=== PATIENT | male | born 1960 | race African-American/Black ===

== ENCOUNTER 2020-04-27 07:58 | Outpatient (CLI) | payer OTHER, SELFPAY ==
--- NOTE | 2020-05-02 13:16 | WPDPFTINT ---
PFT Interpretation PFT Interpretation: DOS: 04/27/2020 REQUESTING: Arslan Joshi NP REASON FOR TESTING: COPD PULMONARY FUNCTION TESTS Results are reliable and reproducible. Spirometry: FEV1 106%, 2.88 L. FVC 117%. FEV1/ FVC decreased 67%. FEF 25-75% is decreased at 59%. No change after bronchodilator. Lung volumes: TLC 141% moderately increased consistent with hyperinflation. slow vital capacity is 125% compared to forced vital capacity 117% consistent with dynamic airway obstruction. residual volume 136% consistent with air trapping. airway resistance mildly increased 133%. Diffusion: DLCO 83%, normal. Flow volume loop: Normal. IMPRESSION: Small airways pattern with moderate hyperinflation, mild air trapping, and increased airway resistance. Lack of response to bronchodilators should not preclude use if clinically indicated. Heena Barnhart MD
--- NOTE | 2020-05-02 13:23 | WPDPFTINT ---
PFT Interpretation PFT Interpretation: DOS: 04/27/2020 REQUESTING: Dr. Reji Abdul REASON FOR TESTING: Enlarged lymph node PULMONARY FUNCTION TESTS Results are reliable and reproducible. Patient meds include ProAir Spiriva Symbicort. Spirometry: FEV1 70%, mildly decreased, 2.58 L. FVC 96% normal. FEV1/ FVC % decreased 53% consistent with airflow obstruction. FEF 25-75% extremely low 29%. No significant change with bronchodilator administration. Lung volumes: TLC 110% normal. RV 123% mild air trapping. airway resistance increased to 219%. Diffusion: DLCO is 74%, mildly decreased. Flow volume loop: Mild coving of the expiratory limb. IMPRESSION: Mild obstructive ventilatory defect severe in the small airways with mild air trapping and mild diffusion impairment. Lack of response to bronchodilators should not preclude use if clinically indicated. Heena Barnhart MD
== END 2020-04-27 07:59 | disposition home or self-care (01) ==
LOC: ANHPFT 08:00
PROVIDERS: PCP Emergency Medicine; Visit Provider Nurse Practitioner Family
DX: J44.9 Chronic obstructive pulmonary disease, unspecified (principal); R94.2 Abnormal results of pulmonary function studies
CPT/HCPCS: 94060; 94726; 94729

== ENCOUNTER 2020-06-19 02:43 | Observation (INO) | payer OTHER, SELFPAY ==
[2020-06-19] VITALS (15 sets, daily range): BP systolic 111–182; BP diastolic 76–123; PULSE 88–114; RESP 16–28; TEMP 36.1–36.7; O2SAT 90–98; BMI 26.3
--- NOTE | ~2020-06-19 | XR_ITS ---
EXAMINATION: XR chest 2V DATE: 06/19/2020 03:39 INDICATION: Shortness of breath TECHNIQUE: PA and lateral views of the chest are obtained. COMPARISON: 11/03/2019, 04/17/2019 FINDINGS: The lungs are hyperinflated but free of acute opacities. There is no pleural effusion or pn eumothorax. The cardiomediastinal silhouette is normal. The visualized bones and soft tissues are unr emarkable. IMPRESSION: 1. Hyperinflation without acute cardiopulmonary abnormality. Reviewed, dictated and finalized at location A.
--- NOTE | ~2020-06-19 | CT_ITS ---
EXAMINATION: CTA chest PE protocol DATE: 06/20/2020 14:38 INDICATION: Hemoptysis. Shortness of breath. TECHNIQUE: Computed tomography angiography (CTA) of the chest was performed with 100 mL Omnipaque-350 intravenous contrast timed to evaluate the pulmonary arteries. Coronal maximum intensity projection 3D-reconstructions were created by the technologist. Automated exposure control and iterative reconst ruction technique were employed. The dose-length product was 319.59 mGy-cm. COMPARISON: Chest CT 11/03/2019 FINDINGS: There is mucosal plugging in the lower lobes. There is minimal atelectasis bilaterally. The re is mild emphysema. No pleural effusion. The heart size is normal. There are coronary artery calcif ications. No pericardial effusion. There is no pulmonary embolus. There is an old healed fracture of left clavicle. IMPRESSION: 1. No pulmonary embolus. Sensitivity is mildly decreased by motion artifact. 2. Mild emphysema. Reviewed, dictated and finalized at location A.
--- NOTE | 2020-06-19 02:51 | ECG_ITS ---
Measurements Intervals [place] Rate: 101 P: 78 LA: 168 QRS: 44 QRSD: 94 T: 49 QT: 330 QTc: 428 Interpretive Statements SINUS TACHYCARDIA POSSIBLE LEFT ATRIAL ENLARGEMENT CANNOT RULE OUT SEPTAL INFARCT, AGE INDETERMINATE BASELINE ARTIFACT- I, II, III, AVL, AVF ABNORMAL ECG Electronically Signed On 06-19-2020 7:17:43 CDT by Michael Fontaine D.O.
[2020-06-19] MEDS: IPRATROPIUM BR 0.02% INH SOLN 0.5 MG/2.5 ML VIAL 1 MG INHALATION (03:02)
[2020-06-19] MEDS: ALBUTEROL SULFATE NEB 2.5 MG/0.5 ML INH 10 MG INHALATION (03:03)
[2020-06-19 03:04] LABS: Basophils Absolute Auto 0.1 K/mm3 (0.0-0.1); Basophils Percent Auto 0.7 % (0.2-1.2); Eosinophils Absolute Auto 1.8 K/mm3 (0-0.3); Eosinophils Percent Auto 24.7 % (0-4.4); Hematocrit 39.7 % (42.0-52.0); Hemoglobin 13.6 g/dL (14.0-18.0); Immature Granulocyte Absolute 0.01 K/mm3 (0.00-0.031); Immature Granulocyte Percent A 0.1 % (0-0.5); Lymphocytes Absolute Auto 2.22 K/mm3 (0.9-3.2); Lymphocytes Percent Auto 30.6 % (18.3-44.2); Mean Corpuscular HGB Conc 34.3 g/dl (32-36); Mean Corpuscular Hemoglobin 31.3 pg (26-34); Mean Corpuscular Volume 91.5 fl (80-100); Mean Platelet Volume 9.1 fl (7.4-10.4); Monocytes Absolute Auto 0.5 K/mm3 (0.1-0.6); Monocytes Percent Auto 6.3 % (2.6-8.5); Neutrophils Absolute Auto 2.7 K/mm3 (1.3-6.7); Neutrophils Percent Auto 37.6 % (45.5-73.1); Platelet Count Result 237 k/mm3 (150-375); Red Blood Count 4.34 M/mm3 (4.6-6.20); Red Cell Distribution Width 12.3 % (11.5-14.5); White Blood Count 7.3 K/mm3 (4.5-10.0)
[2020-06-19 03:16] LABS: Anion Gap 8 mmol/L (8-16); Blood Urea Nitrogen 12 mg/dL (9-20); Calcium 9.1 mg/dL (8.4-10.2); Carbon Dioxide 24 mmol/L (22-30); Chloride 105 mmol/L (98-107); Estimated CRCL calculation 52 ml/min; Estimated Glomerular Filt Rate > 60; Glucose 115 mg/dL (75-110); Potassium 3.6 mmol/L (3.4-5.0); Sodium 137 mmol/L (137-145)
--- NOTE | 2020-06-19 04:05 | ED.SOB ---
HPI - SOB/Dyspnea General Chief Complaint: Shortness of Breath/Dyspnea Stated Complaint: SOB Time Seen by Provider: 06/19/20 02:58 Source: patient Mode of arrival: ambulatory Limitations: no limitations History of Present Illness HPI Narrative: This patient is a 60 year old male who presents for evaluation of shortness of breath. He states he has chronic bronchitis but his symptoms have gotten worsen over the past couple of days. He reports worsening dry cough and wheezing. He is using his albuterol inhaler and maintenance inhaler without relief. He called 911 and he was found to have diffuse wheezing so he was treated with albuterol nebulizer and decadron in route. He states his shortness of breath has not improved. He reports chronic constant chest tightness for a long time. He denies fever, chills, nausea, vomiting. Related Data Home Medications Medication Instructions Recorded Confirmed pravastatin 20 mg tablet 20 mg PO DAILY 10/18/19 06/19/20 hydrochlorothiazide 12.5 mg PO DAILY 06/19/20 06/19/20 losartan 50 mg PO DAILY 06/19/20 06/19/20 Allergies Allergy/AdvReac Type Severity Reaction Status Date / Time No Known Allergies Allergy Verified 04/19/20 09:08 Review of Systems Review of Systems: All systems reviewed & are unremarkable except as noted in HPI and below Constitutional: Constitutional: Denies chills and Denies fever(s) Cardiovascular: Cardiovascular: Denies chest pain and Denies radiating jaw, neck or arm pain Respiratory: Respiratory: Reports cough, Reports dyspnea and Reports wheezing Gastrointestinal: Gastrointestinal: Denies abdominal pain, Denies diarrhea, Denies nausea and Denies vomiting [facility] Past Medical History Medical History (Updated 06/19/20 @ 07:33 by Jessica Anna MD) Chronic bronchitis Essential hypertension Surgical History Surgical History (Updated 06/19/20 @ 04:21 by Jessica Anna MD) No pertinent past surgical history Family History Family History (Updated 06/19/20 @ 06:34 by Maryam Yeboah RN) Sibling Lung cancer Sibling Hypertension Social History Social History (Updated 04/19/20 @ 09:09 by Lacie Pacheco CMA) Social History: pt smoke a half a pack a day Years smoked: 30 Smoking status: Current every day smoker Tobacco type: cigarettes Alcohol intake: current Drinks per week: 4 Substance use: never Gender identity (if verbalized by the patient): Male Spiritual care concerns: No Exam Const: General: alert Nutritional Appearance: well nourished Orientation/consciousness: patient oriented x3 Limitations: no limitations Other: mild distress HENMT: Head: normocephalic and atraumatic Face and sinus: face symmetric Mouth: Yes Normal oral and palatal mucosa present and Yes oropharynx normal Eyes: EOM: EOMs intact bilaterally Chest: Chest palpation & inspection: normal inspection of the chest Resp: Effort & Inspection: no retractions, tachypneic (mild) and no use of accessory muscles Auscultation: wheezes expiratory wheezes, inspiratory wheezes and throughout Cardio: Rate: tachycardic Rhythm: regular rhythm Heart sounds: no murmurs GI: GI Palp: Yes Soft to palpation, No Tenderness to palpation present (GI) and No Guarding due to palpation present (GI) Skin: General skin exam: normal color Rashes: no rashes Extrem: General: no pedal edema Course Reevaluation(s) Reevaluation #1: Respiratory therapist reports patient reports his chest tightness has resolved and he is wheezing less. His oxygen saturation is 89% on room air. Date: 06/19/20 Time: 04:05 Vital Signs Vital signs: Vital Signs Pulse Rate 114 H 06/19/20 02:43 Respiratory Rate 28 H 06/19/20 02:43 Blood Pressure 182/123 H 06/19/20 02:43 Pulse Oximetry 90 06/19/20 02:43 Temperature 97.8 F 06/19/20 06:15 Pulse Rate 88 06/19/20 06:15 Respiratory Rate 20 06/19/20 06:15 Blood Pressure 141/87 H 06/19/20 0
--- NOTE | 2020-06-19 06:22 | ADMGEN ---
This patient, Denia Baker Jr., was admitted to 3 [facility] Surg Room 309-01 at 0615. Patient/family oriented to hospital policies and general routines including ID bracelet, bed and alarms, visiting hours, pain management, procedures, bathroom and other care routines, personal items, smoking policy, room service/diet, and visiting hours. Valuables list has been completed. Information on how to activate the Rapid Response Team has been discussed. Patient/Family are encouraged to report perceived risks to care and to ask questions if they do not understand what they are told or what they should do.
--- NOTE | 2020-06-19 08:46 | PM.IMHP ---
H&P: HPI History of Present Illness Date/Time: 06/19/20 08:46 Chief complaint: SOB x 1 week, wheezing Narrative: Denia Baker Jr. is a 60 year old male with history of COPD (last hospitalization 03/2019, follows Dr. Barnhart), HTN, HLD who presented to the ED via EMS from home just after midnight on 06/19 with complaints of SOB for 1 week, wheezing, and cough for 3 days. Patient states his SOB started 1 week ago, mild in nature, which progressively worsened. He developed a dry cough roughly 3 days ago, as well as, wheezing. He noted his symptoms severely worsened yesterday afternoon when he was out mowing his lawn. When symptoms improve with his home regimen, EMS was summoned and administered IV decadron and administered albuterol en route to the hospital with little improvement. In the ED, he was given a neb treatment with some improvement. He was noted to be hypoxic on RA and was placed on 2L O2 NC to maintain adequate saturation; he is now on 1.5L and states his symptoms have improved some more this morning. CXR in the ED shows hyperinflation and no acute cardiopulmonary disease. He notes that these symptoms are similar to previous COPD exacerbations, only worse. He has had some associated chest tightness, midsternal chest pain, rib and shoulder pain that is associated with dry cough. He has some epigastric pain that wraps around to both sides that he associates with his cough/increased work of breathing. He denies any fevers or any sick contacts at home with similar symptoms. He lives with his two younger brothers who do not have any respiratory symptoms nor fevers. He has been appropriately socially distancing, wearing masks, and using appropriate hand hygiene with hand steam table worker when he does occasionally go out in public; only as needed to the store and occasionally fishes alone. He has no known close contacts with COVID 19 virus. Patient does note a chronic periodontal abscess which he has an appointment for this week with a oral surgeon; he is not on antibiotics. No other complaints at the moment. Denies f/c/s, myalgias/arthralgias, current headaches, dizziness, lightheadedness, loss of sense of smell/taste, changes in v/h, palpitations, hemoptysis, n/v/d/c, changes in BMs, BRBPR, melena, dysuria, hematuria, cloudy urine, calf pain/swelling. Review of Systems Review of Systems: All systems reviewed & are unremarkable except as noted in HPI and below PMFSH Past Medical History Medical History Chronic bronchitis COPD (chronic obstructive pulmonary disease) Essential hypertension HLD (hyperlipidemia) Tobacco abuse Surgical History Surgical History No pertinent past surgical history Family History Family History Sibling Lung cancer Sibling Hypertension Social History Social History (Updated 06/19/20 @ 09:16 by Micah Phillips PA-C) Social History: Patient lives at home with his two younger brother. He has multiple surrogate MDM, but would like his sister Fe to be her primary MDM. He sees Dr. Puga as his PCP and Dr. Barnhart for his pulmonary issues. He states he smoked about 0.5 pack per day for roughly 30 years but just quit roughly 1.5 weeks ago. Years smoked: 30 Smoking status: Former smoker Tobacco type: cigarettes Additional smoking assessment comments: States he quit 1.5 weeks ago Alcohol intake: current Drinks per week: 4 Substance use: never Gender identity (if verbalized by the patient): Male Spiritual care concerns: No Meds Home Medications and Allergies Home Medications Medication Instructions Recorded Confirmed Type pravastatin 20 mg tablet 20 mg PO DAILY 10/18/19 06/19/20 History albuterol sulfate 90 mcg/actuation 1 puff INHALATION Q4H PRN #18 gm 10/19/19 06/19/20 Rx aerosol inhaler glycopyrrolate 9 mcg-form
[2020-06-19] MEDS: ALBUTEROL SULFATE NEB 2.5 MG/0.5 ML INH 5 MG INHALATION ×3 (08:56→19:41)
[2020-06-19] MEDS: IPRATROPIUM BR 0.02% INH SOLN 0.5 MG/2.5 ML VIAL INHALATION ×3 (08:57→19:41)
[2020-06-19] MEDS: ENOXAPARIN 40 MG/0.4 ML SYRINGE SUB-Q (09:17)
[2020-06-19] MEDS: guaiFENesin 12 HR 600 MG TABCR 1200 MG PO ×2 (09:17→20:40)
[2020-06-19] MEDS: methylPREDNISolone SOD SUCC 125 MG VIAL 60 MG IV PUSH ×2 (09:18→20:43)
--- NOTE | 2020-06-19 10:45 | PHAR ---
The patient's home med of Bevspi inhaler has been verified.
[2020-06-19] MEDS: LOSARTAN POTASSIUM 50 MG TABLET PO (13:25)
[2020-06-19] MEDS: hydroCHLOROthiazide 12.5 MG CAPSULE PO (13:25)
[2020-06-19] MEDS: PRAVASTATIN SODIUM 20 MG TABLET PO (13:25)
[2020-06-19] MEDS: ACETAMINOPHEN 325 MG TABLET 650 MG PO ×2 (13:29→19:46)
[2020-06-20] VITALS (13 sets, daily range): BP systolic 131–152; BP diastolic 82–105; PULSE 82–108; RESP 14–20; TEMP 36.6–36.7; O2SAT 95–98
[2020-06-20] MEDS: ALBUTEROL SULFATE NEB 2.5 MG/0.5 ML INH 5 MG INHALATION ×3 (01:33→19:47)
[2020-06-20] MEDS: IPRATROPIUM BR 0.02% INH SOLN 0.5 MG/2.5 ML VIAL INHALATION ×3 (01:34→19:47)
[2020-06-20 06:52] LABS: Basophils Percent Auto 0.1 % (0.2-1.2); Eosinophils Percent Auto 0.1 % (0-4.4); Hemoglobin 12.7 g/dL (14.0-18.0); Immature Granulocyte Absolute 0.06 K/mm3 (0.00-0.031); Immature Granulocyte Percent A 0.5 % (0-0.5); Lymphocytes Absolute Auto 1.14 K/mm3 (0.9-3.2); Lymphocytes Percent Auto 8.8 % (18.3-44.2); Mean Corpuscular HGB Conc 34.3 g/dl (32-36); Mean Corpuscular Hemoglobin 31.2 pg (26-34); Mean Corpuscular Volume 90.9 fl (80-100); Mean Platelet Volume 9.7 fl (7.4-10.4); Monocytes Absolute Auto 0.6 K/mm3 (0.1-0.6); Monocytes Percent Auto 4.3 % (2.6-8.5); Neutrophils Absolute Auto 11.2 K/mm3 (1.3-6.7); Neutrophils Percent Auto 86.2 % (45.5-73.1); Platelet Count Result 283 k/mm3 (150-375); Red Blood Count 4.07 M/mm3 (4.6-6.20); Red Cell Distribution Width 12.3 % (11.5-14.5)
[2020-06-20 07:11] LABS: Alanine Aminotransferase 39 U/L (4-50); Albumin Level 4.4 g/dL (3.5-5.1); Alkaline Phosphatase 56 U/L (38-126); Anion Gap 7 mmol/L (8-16); Aspartate Amino Transferase 31 U/L (17-59); Bilirubin,Total 0.1 mg/dL (0.2-1.3); Blood Urea Nitrogen 15 mg/dL (9-20); Calcium 9.9 mg/dL (8.4-10.2); Carbon Dioxide 26 mmol/L (22-30); Chloride 104 mmol/L (98-107); Estimated CRCL calculation 57 ml/min; Estimated Glomerular Filt Rate > 60; Glucose 125 mg/dL (75-110); Magnesium 2.2 mg/dL (1.6-2.3); Sodium 137 mmol/L (137-145)
[2020-06-20] MEDS: guaiFENesin 12 HR 600 MG TABCR 1200 MG PO (08:39)
[2020-06-20] MEDS: PRAVASTATIN SODIUM 20 MG TABLET PO (08:39)
[2020-06-20] MEDS: hydroCHLOROthiazide 12.5 MG CAPSULE PO (08:39)
[2020-06-20] MEDS: LOSARTAN POTASSIUM 50 MG TABLET PO (08:39)
[2020-06-20] MEDS: ENOXAPARIN 40 MG/0.4 ML SYRINGE SUB-Q (08:40)
[2020-06-20] MEDS: methylPREDNISolone SOD SUCC 125 MG VIAL 60 MG IV PUSH ×2 (08:40→20:56)
[2020-06-20] MEDS: ACETAMINOPHEN 325 MG TABLET 650 MG PO ×2 (08:51→15:24)
--- NOTE | 2020-06-20 12:05 | PM.IMPN ---
Progress Note: A&P Assessment and Plan (1) Acute exacerbation of chronic obstructive airways disease: Code(s): J44.1 - Chronic obstructive pulmonary disease with (acute) exacerbation Status: Acute Assessment and Plan: COPD exacerbation suspected given history, symptoms, and exam; CXR shows hyperinflation. COVID PNA is less likely given history he provided, afebrile, imaging results; should he develop worsening symptoms, fevers, or requiring more O2 consider reimaging and possible covid testing and holding neb treatments, but for now will treat as COPD exacerbation. Continue home medications 2 puff albuterol inhaled PRN Neb treatments QID PEP CPT Continue azithromycin Continue Solumedrol 60 mg Q12 IV for now Will give him Tessalon Perles and guaifenesin cough syrup due to his nonproductive cough. He is currently on room air at this time with a saturation 96%. Will consult Dr. Barnhart since he is a patient of [facility] for further adjustments and recommendations. Continue monitoring patient's breathing, oxygen as needed. (2) Headache: Code(s): R51 - Headache Status: Acute Assessment and Plan: States he usually takes ibuprofen for headaches, however notes he takes up to 600 mg TID most days. Educated on chronic NSAID use Will do Tylenol PRN for now (3) Coughing up blood: Code(s): R04.2 - Hemoptysis Status: Acute Assessment and Plan: Patient reports coughing up blood a few times in his sputum. He does have a very harsh cough and could have some blood noted due to that and being on SQ Lovenox. But since he continues to have SOB issues and [facility] will order CTA to rule out underlying PE. Continue monitoring. (4) Dizziness: Code(s): R42 - Dizziness and giddiness Status: Acute Assessment and Plan: He reported having some dizziness with standing earlier. Ordered orthostatics to be completed which showed he was orthostatic going from sitting to standing with a drop in his blood pressure from 152 systolic to 131 systolic. The nurse states he was asymptomatic with that fluctuation. Will continue to monitor his symptoms otherwise he appears euvolemic and I do not feel he needs any IV fluids at this time. (5) Essential hypertension: Code(s): I10 - Essential (primary) hypertension Status: Acute Assessment and Plan: BP improved since arrival. 130s sys last reading Continue home medications Monitor (6) HLD (hyperlipidemia): Code(s): E78.5 - Hyperlipidemia, unspecified Status: Acute Assessment and Plan: Continue statin Normal LFTs (7) Tobacco abuse: Code(s): Z72.0 - Tobacco use Status: Acute Assessment and Plan: Patient states he stopped 1.5 weeks ago; declines need for nicotine patch. Time Spent With Patient Time with patient: 25 - 35 minutes Subjective Date/time seen: 06/20/20 12:05 Interval history: date of service 06/20/2020: the patient still reports having some shortness of breath at rest and with exertion. Currently is on room air. He also reports having a mostly dry cough with slight clear production. He has also had noticed some bright red blood in his sputum production as well. He denies any chest pain, nausea, vomiting, abdominal pain, constipation, leg swelling, calf pain, palpitations or any other symptoms at this time. Review of Systems Review of Systems: All systems reviewed & are unremarkable except as noted in HPI and below Exam Narrative: Exam Narrative: General: 60-year-old man laying flat in bed, in the dark watching TV. Appears comfortable. In no acute distress. Skin: No jaundice or cyanosis.
[2020-06-20] MEDS: BENZONATATE 100 MG CAPSULE 200 MG PO ×2 (13:13→16:26)
--- NOTE | 2020-06-20 13:27 | PC.NURSE ---
Physician notified of orthostatic blood pressure. Will continue to monitor. No new orders received.
--- NOTE | 2020-06-20 15:15 | PM.CNPUL ---
Assessment and Plan Assessment and plan (1) Acute exacerbation of chronic obstructive airways disease: Code(s): J44.1 - Chronic obstructive pulmonary disease with (acute) exacerbation Status: Acute Assessment and Plan: - Agree with current management plan with Azithromycin, systemic steroids. - Duonebs Q6h - can be switched to oral prednisone and azithromycin and resume home glycopyrolate/formeterol inhaler + PRN albuterol 2-4 puffs Q4h prn - f/u in our office in 4-6 weeks post discharge History of Present Illness History of Present Illness Consult date: 06/20/20 Chief complaint: COPD Exacerbation Narrative: 60 y/o male with history of COPD, quit smoking many years ago presents with signs and symptoms of COPD exacerbation. He said he became short of breath, started to experience chest tightness, wheezing and cough shortly after cutting the grass. He denies fever, purlent sputum, loss of taste or smell, sore, throat, runny nose, diarrhea or body aches. He has been started on albuterol/atrovent nebs, Azithromcyin and IV solumedrol and is feeling better. He is on Bevespi inhaler at home with PRN albuterol and says he's been stable on this regimen and rarely has an exacerbation. CXR shows diffuse emphysema with hyperinflated lungs but no infiltrates. Review of Systems Review of Systems: All systems reviewed & are unremarkable except as noted in HPI and below PMFSH Past Medical History Medical History Chronic bronchitis COPD (chronic obstructive pulmonary disease) Essential hypertension HLD (hyperlipidemia) Tobacco abuse Surgical History Surgical History No pertinent past surgical history Family History Family History Sibling Lung cancer Sibling Hypertension Social History Social History (Updated 06/19/20 @ 09:16 by Micah Phillips PA-C) Social History: Patient lives at home with his two younger brother. He has multiple surrogate MDM, but would like his sister Fe to be her primary MDM. He sees Dr. Puga as his PCP and Dr. Barnhart for his pulmonary issues. He states he smoked about 0.5 pack per day for roughly 30 years but just quit roughly 1.5 weeks ago. Years smoked: 30 Smoking status: Former smoker Tobacco type: cigarettes Additional smoking assessment comments: States he quit 1.5 weeks ago Alcohol intake: current Drinks per week: 4 Substance use: never Gender identity (if verbalized by the patient): Male Spiritual care concerns: No Meds Home Medications and Allergies Home Medications Medication Instructions Recorded Confirmed Type pravastatin 20 mg tablet 20 mg PO DAILY 10/18/19 06/19/20 History albuterol sulfate 90 mcg/actuation 1 puff INHALATION Q4H PRN #18 gm 10/19/19 06/19/20 Rx aerosol inhaler glycopyrrolate 9 mcg-formoterol 2 puff INHALATION BID #10.7 gm 04/19/20 06/19/20 Rx 4.8 mcg HFA aerosol inhaler benzonatate 100 mg capsule 100 mg PO TID 30 Days #90 cap 06/13/20 06/19/20 Rx hydrochlorothiazide 12.5 mg PO DAILY 06/19/20 06/19/20 History losartan 50 mg PO DAILY 06/19/20 06/19/20 History Allergies Allergy/AdvReac Type Severity Reaction Status Date / Time No Known Allergies Allergy Verified 04/19/20 09:08 Vital Signs Vital Signs - 24 hr 06/19/20 19:42 06/19/20 19:48 06/19/20 19:53 Temperature Pulse Rate 101 H 101 H 101 H Respiratory Rate 16 18 18 Blood Pressure Pulse Oximetry 95 06/19/20 22:00 06/20/20 01:35 06/20/20 01:42 Temperature 36.7 C Pulse Rate 97 108 H 106 H Respiratory Rate 18 14 16 Blood Pressure 130/80 Pulse Oximetry 97 06/20/20 05:56 06/20/20 08:58 06/20/20 09:05 Temperature 36.6 C Pulse Rate 85 88 Respiratory Rate 18 20 Blood Pressure 135/84 Pulse Oximetry 95 96 06/20/20 09:06 06/20/20 12:40 06/20/20 13:00 Temp
[2020-06-20] MEDS: guaiFENesin 200 MG/10 ML UDC PO (21:04)
[2020-06-21] VITALS (9 sets, daily range): BP systolic 138–141; BP diastolic 79–85; PULSE 77–99; RESP 16–20; TEMP 36.3; O2SAT 97
[2020-06-21] MEDS: ALBUTEROL SULFATE NEB 2.5 MG/0.5 ML INH 5 MG INHALATION ×3 (02:06→14:29)
[2020-06-21] MEDS: IPRATROPIUM BR 0.02% INH SOLN 0.5 MG/2.5 ML VIAL INHALATION ×3 (02:06→14:29)
[2020-06-21] MEDS: guaiFENesin 200 MG/10 ML UDC PO (06:14)
[2020-06-21] MEDS: ACETAMINOPHEN 325 MG TABLET 650 MG PO (06:19)
[2020-06-21 06:29] LABS: Hematocrit 39.7 % (42.0-52.0); Hemoglobin 13.3 g/dL (14.0-18.0); Mean Corpuscular HGB Conc 33.5 g/dl (32-36); Mean Corpuscular Hemoglobin 31.1 pg (26-34); Mean Platelet Volume 9.8 fl (7.4-10.4); Platelet Count Result 293 k/mm3 (150-375); Red Blood Count 4.27 M/mm3 (4.6-6.20); Red Cell Distribution Width 12.7 % (11.5-14.5); White Blood Count 12.7 K/mm3 (4.5-10.0)
[2020-06-21 06:41] LABS: Anion Gap 10 mmol/L (8-16); Blood Urea Nitrogen 15 mg/dL (9-20); Calcium 9.7 mg/dL (8.4-10.2); Carbon Dioxide 26 mmol/L (22-30); Chloride 104 mmol/L (98-107); Estimated CRCL calculation 57 ml/min; Estimated Glomerular Filt Rate > 60; Glucose 124 mg/dL (75-110); Potassium 4.1 mmol/L (3.4-5.0); Sodium 140 mmol/L (137-145)
[2020-06-21] MEDS: BENZONATATE 100 MG CAPSULE 200 MG PO ×2 (08:55→12:33)
[2020-06-21] MEDS: LOSARTAN POTASSIUM 50 MG TABLET PO (08:55)
[2020-06-21] MEDS: hydroCHLOROthiazide 12.5 MG CAPSULE PO (08:55)
[2020-06-21] MEDS: methylPREDNISolone SOD SUCC 125 MG VIAL 60 MG IV PUSH (08:55)
[2020-06-21] MEDS: ENOXAPARIN 40 MG/0.4 ML SYRINGE SUB-Q (08:55)
[2020-06-21] MEDS: PRAVASTATIN SODIUM 20 MG TABLET PO (08:56)
--- NOTE | 2020-06-21 12:49 | PM.DS ---
DS: Admitting Diagnosis Admitting Diagnosis Admitting Diagnosis: COPD Exacerbation DS: Discharge Diagnosis Discharge Diagnosis (1) Acute exacerbation of chronic obstructive airways disease: Code(s): J44.1 - Chronic obstructive pulmonary disease with (acute) exacerbation Status: Acute Assessment and Plan: COPD exacerbation suspected given history, symptoms, and exam; CXR shows hyperinflation. COVID PNA is less likely given history he provided, afebrile, imaging results, but for now will treat as COPD exacerbation. Patient is feeling much better today he does not have any shortness of breath at rest and breathing with exertion is much improved. He reports his dry cough is also improved with Tessalon Perles and guaifenesin cough syrup. He is currently on room air at this time with a saturation 97% and walking around the room in no acute distress. Pulmonology evaluated the patient and recommended switching him to oral prednisone, few more days of oral azithromycin and continue on his inhalers at home. Recommended him following up in the office in about 4-6 weeks. Patient had questions about being placed on a nebulizer with nebulizer treatments as needed for his shortness of breath. I talked about this with the diesel technician mechanic and she will have him follow-up as an outpatient in the office after this exacerbation is resolved to further discuss the need for a nebulizer at that time. Patient is otherwise stable, feeling well, and cleared by pulmonology to be discharged. Instructed patient follow-up with primary care provider in 1 week. (2) Headache: Code(s): R51 - Headache Status: Acute Assessment and Plan: States he usually takes ibuprofen for headaches, however notes he takes up to 600 mg TID most days. Educated on chronic NSAID use (3) Coughing up blood: Code(s): R04.2 - Hemoptysis Status: Acute Assessment and Plan: Patient reports coughing up blood a few times in his sputum. He does have a very harsh cough and could have some blood noted due to that and being on SQ Lovenox. CTA chest showed no acute pulmonary embolism noted. He did see a little bit more blood in his cough earlier today but I explained him is most likely due to the blood thinner as well as his harsh cough. continue with cough suppressants and have him monitor further as an outpatient with his primary care provider. (4) Dizziness: Code(s): R42 - Dizziness and giddiness Status: Acute Assessment and Plan: He reported having some dizziness with standing earlier. Ordered orthostatics to be completed which showed he was orthostatic going from sitting to standing with a drop in his blood pressure from 152 systolic to 131 systolic. Patient denies any more lightheadedness or dizziness today he is feeling well and blood pressure has been stable. (5) Essential hypertension: Code(s): I10 - Essential (primary) hypertension Status: Acute Assessment and Plan: BP improved since arrival. 140s sys Prior to his medications being given. will continue to have him check his blood pressure at home. (6) HLD (hyperlipidemia): Code(s): E78.5 - Hyperlipidemia, unspecified Status: Acute Assessment and Plan: Continue statin Normal LFTs (7) Tobacco abuse: Code(s): Z72.0 - Tobacco use Status: Acute Assessment and Plan: Patient states he stopped 1.5 weeks ago; declines need for nicotine patch. DS: Summary Hospital Course Reason for hospitalization: Patient is a 60-year-old man with history COPD, presents emergency department with increased shortness of breath ov
--- NOTE | 2020-06-21 14:04 | PM.PNPUL ---
Progress Note: A&P Assessment and Plan (1) Acute exacerbation of chronic obstructive airways disease: Code(s): J44.1 - Chronic obstructive pulmonary disease with (acute) exacerbation Status: Acute Assessment and Plan: - Agree with plans to discharge today on his usual home inhaler glycopyrolate/formeterol inhaler + PRN albuterol 2-4 puffs Q4h prn - OK to order a new nebulizer for use at home with albuterol 0.083% QID p.r.n. shortness of breath / wheezing - Azithromycin, oral prednisone at home - f/u in our office in 4-6 weeks post discharge Subjective Date/time seen: 06/21/20 14:04 This 60 yo man is seen in follow up for COPD exacerbation. He is feeling much better, sitting on the side of the bed, room air, wants to go home. He says that he coughed with a small amount of blood mixed with mucus this am. He asked about having a nebulizer to use at home. I have no objections to this, with albuterol 0.083% QID p.r.n. shortness of breath/wheezing. Review of Systems Review of Systems: All systems reviewed & are unremarkable except as noted in HPI and below Exam Const: General: no acute distress Eyes: General: appearance normal, both eyes and all related structures Neck: Neck: supple and no JVD Resp: Auscultation: wheezes (scattered wheezes, good air entry, no accessory muscle use. ) and diminished lung sounds Cardio: Rate: regular rate Rhythm: regular rhythm Neuro: Speech: normal speech Extrem: General: normal to inspection Psych: Mental Status: mental status grossly normal Affect: normal affect Objective Data Vital Signs Vital Signs: Vital Signs - 24 hr 06/20/20 19:47 06/20/20 19:58 06/20/20 21:46 Temperature 36.7 C Pulse Rate 82 84 98 Respiratory Rate 20 18 Blood Pressure 136/84 Pulse Oximetry 96 96 06/21/20 02:07 06/21/20 02:16 06/21/20 06:00 Temperature 36.3 C L Pulse Rate 78 84 78 Respiratory Rate 20 20 16 Blood Pressure 141/79 H Pulse Oximetry 97 06/21/20 07:25 06/21/20 07:38 06/21/20 08:10 Temperature Pulse Rate 77 80 80 Respiratory Rate 16 16 16 Blood Pressure Pulse Oximetry 97 97 Intake/Output Intake/Output: Intake & Output 06/18/20 06/19/20 06/20/20 06/21/20 23:59 23:59 23:59 23:59 Intake Total 2290 2660 960 Output Total 400 Balance 2290 2260 960 Meds/Results Medications: Active Medications Generic Name Dose Route Start Last Admin Trade Name Freq PRN Reason Stop Dose Admin Acetaminophen 650 mg 06/19/20 09:54 06/21/20 06:19 Tylenol Tablet PO 650 mg Q6H PRN Administration Mild Pain (1-3) or Fever Albuterol 5 mg 06/19/20 08:00 06/21/20 07:24 Albuterol Sulf Neb 2.5mg/0.5ml INHALATION 5 mg Q6HRT JONA Administration Albuterol 2 puff 06/19/20 08:24 Proventil Hfa INHALATION Q4H PRN shortness of breath Benzonatate 200 mg 06/20/20 13:00 06/21/20 12:33 Tessalon Perles PO 200 mg TID JONA Administration Enoxaparin Sodium 40 mg 06/19/20 09:00 06/21/20 08:55 Lovenox SUB-Q 40 mg DAILY JONA Administration Guaifenesin 200 mg 06/20/20 12:03 06/21/20 06:14 PO 200 mg Q4H PRN Administration Cough Hydrochlorothiazide 12.5 mg 06/19/20 09:00 06/21/20 08:55 Hydrochlorothiazide PO 12.5 mg DAILY JONA Administration Azithromycin 500 mg in 250 mls @ 250 mls/hr 06/20/20 08:00 06/21/20 07:49 Zithromax IVPB 250 mls/hr Q24H JONA Administration Ipratropium [place] 0.5 mg 06/19/20 08:00 06/21/20 07:24 Atrovent Neb INHALATION 0.5 mg Q6HRT JONA Administration Losartan Potassium 50 mg 06/19/20 09:00 06/21/20 08:55 Cozaar PO 50 mg DAILY JONA Administration Methylprednisolone Sodium Succinate 60 mg 06/19/20 09:00 06/21/20 08:55 Solu-Medrol IV PUSH 60 mg Q12H JONA Administration Pravastatin Sodium 20 mg 06/19/20 09:00 06/21/20 08:56 Pravastatin Sodium PO 20 mg DAILY JONA Administration Radiology Results:
--- NOTE | 2020-06-21 15:42 | PCRCNOTE ---
Home nebulizer arranged with [facility], phone [phone]. Nebulizer delivered to patient's room.
== END 2020-06-21 15:57 | disposition home or self-care (01) ==
LOC: ANHED 04:45 → ANH3MEDSUR 06:06
PROVIDERS: Physician Assistant; Admitting Provider Family Medicine; Emergency Provider General Practice; PCP Emergency Medicine; Visit Provider Physician Assistant
DX: J44.1 Chronic obstructive pulmonary disease with (acute) exacerbation (principal); R51 Headache; R04.2 Hemoptysis; R42 Dizziness and giddiness; I10 Essential (primary) hypertension; E78.5 Hyperlipidemia, unspecified; Z87.891 Personal history of nicotine dependence
CPT/HCPCS: 36415; 71046; 71275; 80048; 80053; 83735; 85025; 85027; 93005; 94640; 94667; 94668; 96365; 96372; 96374; 96375; 96376; 99285; A9270; G0378; G0379; J0456; J1650; J2930; Q9967

== ENCOUNTER 2020-07-17 04:14 | Observation (INO) | payer OTHER, SELFPAY ==
[2020-07-17] VITALS (19 sets, daily range): BP systolic 138–154; BP diastolic 86–100; PULSE 83–110; RESP 12–26; TEMP 36.5–36.8; O2SAT 90–100; BMI 27.6
--- NOTE | ~2020-07-17 | XR_ITS ---
EXAMINATION: XR chest 1V portable EXAM DATE: 07/17/2020 04:54 INDICATION: Cough, shortness of breath. History COPD. TECHNIQUE: Portable AP frontal chest x-ray was obtained. Comparison is made to prior examination from 06/09/2020. FINDINGS: Chronic hyperinflation. The lungs are clear. There are no pleural effusions. The cardiome diastinal silhouette is within normal limits. There is no pneumothorax suspected. The bones and sof t tissues are unremarkable. IMPRESSION: 1. No acute cardiopulmonary findings. 2. Hyperinflation. Reviewed, dictated and finalized at location A.
--- NOTE | 2020-07-17 04:18 | ECG_ITS ---
Measurements Intervals [place] Rate: 101 P: 83 ME: 162 QRS: 56 QRSD: 90 T: 55 QT: 334 QTc: 433 Interpretive Statements SINUS TACHYCARDIA BASELINE ARTIFACT- AVR, AVL, AVF BORDERLINE ECG Electronically Signed On 07-17-2020 6:44:29 CDT by Michael Fontaine D.O.
--- NOTE | 2020-07-17 04:24 | ED.SOB ---
HPI - SOB/Dyspnea General Chief Complaint: Shortness of Breath/Dyspnea Stated Complaint: SOB Source: RN notes reviewed History of Present Illness HPI Narrative: Patient presents emergency department from home via EMS for shortness of breath. Patient states he has a history of COPD and has been progressively more short of breath for the past 3 days. States he has been having wheezing and using his inhaler with minimal relief. Patient does note a cough productive of clear sputum. Denies any fevers or chills chest pain abdominal pain nausea vomiting or any other symptoms. States he was admitted to the hospital for COPD in the beginning of the month Related Data Home Medications Medication Instructions Recorded Confirmed pravastatin 20 mg tablet 20 mg PO DAILY 10/18/19 06/19/20 hydrochlorothiazide 12.5 mg PO DAILY 06/19/20 06/19/20 losartan 50 mg PO DAILY 06/19/20 06/19/20 Allergies Allergy/AdvReac Type Severity Reaction Status Date / Time No Known Allergies Allergy Verified 04/19/20 09:08 Review of Systems Review of Systems: Narrative: Gen.: Denies fevers or chills ENT: Denies congestion Respiratory: See HPI CV: Denies chest pain or palpitations GI: Denies abdominal pain nausea, emesis or diarrhea Musculoskeletal: Denies back pain or muscle pain Neuro: Denies numbness, tingling, weakness or focal weakness Skin: Denies rash Except as documented, all other systems reviewed and negative PMFSH Past Medical History Medical History Chronic bronchitis COPD (chronic obstructive pulmonary disease) Essential hypertension HLD (hyperlipidemia) Tobacco abuse Social History Social History Social History: Patient lives at home with his two younger brother. He has multiple surrogate MDM, but would like his sister Fe to be her primary MDM. He sees Dr. Puga as his PCP and Dr. Barnhart for his pulmonary issues. He states he smoked about 0.5 pack per day for roughly 30 years but just quit roughly 1.5 weeks ago. Years smoked: 30 Smoking status: Former smoker Tobacco type: cigarettes Additional smoking assessment comments: States he quit 1.5 weeks ago Alcohol intake: current Drinks per week: 4 Substance use: never Gender identity (if verbalized by the patient): Male Spiritual care concerns: No Exam Narrative: Exam Narrative: APPEARANCE: Moderate respiratory distress sitting upright in bed EYES: EOMI HEENT: Normocephalic, atraumatic, OMM RESPIRATORY: Moderate respiratory distress, sitting upright, speaking short phrases, wheezing throughout the bilateral lung [place] with decreased breath sounds in the bases CARDIOVASCULAR: Regular rate and rhythm without murmurs rubs or gallops. ABDOMINAL: Soft, nontender, nondistended, no rebound or guarding MUSCULOSKELETAl: Moves all extremities. No clubbing, cyanosis or edema. NEURO: Awake and alert. Following commands, speech normal, no focal deficits SKIN:: Warm, dry. No rashes lesions or abrasions PSYCHIATRIC: Normal affect/mood, Course Course Emergency Course: Patient given Solu-Medrol and breathing treatments in the emergency department. Attempted to do a walking pulse ox and the patient very dyspneic with ambulation will admit at this time Discussed Dr. Cash presentation and work-up. Chest x-ray. This time agrees with admission request patient remain on steroids and breathing treatments. Does request the patient swab for COVID at this time Discussed with patient and family results of workup and diagnosis. Discussed need for admission. Patient and family understand and agree to current treatment plan Vital Signs Vital signs: Vital Signs Temperature 98.2 F 07/17/20 04:13 Pulse Rate 100 07/17/20 04:13 Respiratory Rate 26 H 07/17/20 04:13 Blood Pressure 148/95 H 07/17/20 04:13 Pulse Oximetry 100 07/17/20 04:13 Temperature
[2020-07-17] MEDS: methylPREDNISolone SOD SUCC 125 MG VIAL IV PUSH (04:26)
[2020-07-17 04:32] LABS: Basophils Percent Auto 0.4 % (0.2-1.2); Eosinophils Absolute Auto 0.4 K/mm3 (0-0.3); Eosinophils Percent Auto 8.5 % (0-4.4); Hematocrit 37.9 % (42.0-52.0); Hemoglobin 13.3 g/dL (14.0-18.0); Immature Granulocyte Absolute 0.01 K/mm3 (0.00-0.031); Immature Granulocyte Percent A 0.2 % (0-0.5); Lymphocytes Absolute Auto 1.73 K/mm3 (0.9-3.2); Lymphocytes Percent Auto 36.8 % (18.3-44.2); Mean Corpuscular HGB Conc 35.1 g/dl (32-36); Mean Corpuscular Hemoglobin 31.8 pg (26-34); Mean Corpuscular Volume 90.7 fl (80-100); Monocytes Absolute Auto 0.4 K/mm3 (0.1-0.6); Monocytes Percent Auto 8.3 % (2.6-8.5); Neutrophils Absolute Auto 2.2 K/mm3 (1.3-6.7); Neutrophils Percent Auto 45.8 % (45.5-73.1); Platelet Count Result 211 k/mm3 (150-375); Red Blood Count 4.18 M/mm3 (4.6-6.20); White Blood Count 4.7 K/mm3 (4.5-10.0)
[2020-07-17] MEDS: ALBUTEROL SULFATE NEB 2.5 MG/0.5 ML INH 5 MG INHALATION ×3 (04:33→05:51)
[2020-07-17] MEDS: IPRATROPIUM BR 0.02% INH SOLN 0.5 MG/2.5 ML VIAL INHALATION ×3 (04:34→05:51)
[2020-07-17 04:44] LABS: Alanine Aminotransferase 133 U/L (4-50); Albumin Level 4.6 g/dL (3.5-5.1); Alkaline Phosphatase 71 U/L (38-126); Anion Gap 9 mmol/L (8-16); Aspartate Amino Transferase 64 U/L (17-59); Bilirubin,Total 0.5 mg/dL (0.2-1.3); Blood Urea Nitrogen 10 mg/dL (9-20); Calcium 9.3 mg/dL (8.4-10.2); Carbon Dioxide 27 mmol/L (22-30); Chloride 104 mmol/L (98-107); Estimated CRCL calculation 63 ml/min; Estimated Glomerular Filt Rate > 60; Glucose 112 mg/dL (75-110); Potassium 3.6 mmol/L (3.4-5.0); Sodium 140 mmol/L (137-145)
--- NOTE | 2020-07-17 06:33 | PC.NURSE ---
Received report from Riky SARMIENTO in ER. Requested diet order for patient and to have neb treatments changed to inhalers due to COVID precautions.
--- NOTE | 2020-07-17 06:45 | ADMGEN ---
This patient, Denia Baker Jr., was admitted to [facility] S[facility] Room 332-01. Patient/family oriented to hospital policies and general routines including ID bracelet, bed and alarms, visiting hours, pain management, procedures, bathroom and other care routines, personal items, smoking policy, room service/diet, and visiting hours. Valuables list has been completed. Information on how to activate the Rapid Response Team has been discussed. Patient/Family are encouraged to report perceived risks to care and to ask questions if they do not understand what they are told or what they should do.
[2020-07-17] MEDS: ACETAMINOPHEN 325 MG TABLET 650 MG PO ×3 (10:20→23:46)
[2020-07-17] MEDS: methylPREDNISolone SOD SUCC 125 MG VIAL 60 MG IV PUSH ×3 (11:52→23:40)
[2020-07-17 12:00] LABS: SARS-CoV-2 RNA PCR Negative
--- NOTE | 2020-07-17 16:28 | PM.IMHP ---
H&P: HPI History of Present Illness Date/Time: 07/17/20 16:28 Chief complaint: AE COPD Narrative: Denia Baker Jr. is a 60 year old male with past medical history of COPD he presented emergency department with a complaint worsening shortness of breath cough and wheezing he is diagnosed with exacerbation of COPD patient was started on Solu-Medrol updraft I have added doxycycline to cover for atypical as well as Pulmicort for his COPD, patient had a chest x-ray and emergency depart did not show any cardiopulmonary disease, patient states is feeling little better compared to when his arrived not as short of breath, denies any fever or chills, patient was tested for COVID-19 is negative. plan is to continue present management will taper Solu-Medrol as symptoms improve and further recommendation to follow Review of Systems Review of Systems: All systems reviewed & are unremarkable except as noted in HPI and below PMFSH Past Medical History Medical History Chronic bronchitis COPD (chronic obstructive pulmonary disease) Essential hypertension HLD (hyperlipidemia) Tobacco abuse Family History Family History (Updated 07/17/20 @ 07:46 by Eliza De La Torre RN) Sibling Lung cancer Sibling Hypertension Mother Diabetes mellitus Father Hypertension Heart disease Social History Social History Social History: Patient lives at home with his two younger brother. He has multiple surrogate MDM, but would like his sister Fe to be her primary MDM. He sees Dr. Puga as his PCP and Dr. Barnhart for his pulmonary issues. He states he smoked about 0.5 pack per day for roughly 30 years but just quit roughly 1.5 weeks ago. Smoking packs per day: 0.5 Smoking cigarettes per day: 10.0 Years smoked: 30 Smoking pack-years: 15.00 Smoking status: Current some day smoker Tobacco type: cigarettes Additional smoking assessment comments: States he quit 1.5 weeks ago Alcohol intake: current Drinks per week: 6 Substance use: never Gender identity (if verbalized by the patient): Male Spiritual care concerns: No Meds Home Medications and Allergies Home Medications Medication Instructions Recorded Confirmed Type pravastatin 20 mg tablet 20 mg PO HS 10/18/19 07/17/20 History glycopyrrolate 9 mcg-formoterol 2 puff INHALATION BID #10.7 gm 04/19/20 07/17/20 Rx 4.8 mcg HFA aerosol inhaler hydrochlorothiazide 12.5 mg PO DAILY 06/19/20 07/17/20 History losartan 50 mg PO DAILY 06/19/20 07/17/20 History albuterol sulfate 2.5 mg INHALATION QID #180 ml 06/21/20 07/17/20 Rx nebulizers [Compact Compressor #1 each 06/21/20 07/17/20 Rx Nebulizer] albuterol sulfate 2 puff INHALATION Q4H PRN 07/17/20 07/17/20 History Allergies Allergy/AdvReac Type Severity Reaction Status Date / Time No Known Allergies Allergy Verified 04/19/20 09:08 Vital Signs Vital Signs - 24 hr 07/17/20 04:13 07/17/20 04:21 07/17/20 04:22 Temperature 98.2 F Pulse Rate 100 107 H Respiratory Rate 26 H Blood Pressure 148/95 H Pulse Oximetry 100 95 07/17/20 04:34 07/17/20 04:42 07/17/20 04:53 Temperature Pulse Rate 100 110 H 99 Respiratory Rate 18 16 Blood Pressure Pulse Oximetry 07/17/20 04:59 07/17/20 05:18 07/17/20 05:51 Temperature Pulse Rate 103 H 99 105 H Respiratory Rate 16 12 16 Blood Pressure 145/100 H Pulse Oximetry 95 07/17/20 05:59 07/17/20 06:14 07/17/20 06:19 Temperature 97.8 F Pulse Rate 100 91 Respiratory Rate 16 13 Blood Pressure 138/90 Pulse Oximetry 90 96 07/17/20 07:05 07/17/20 12:00 Temperature 98.1 F 98.1 F Pulse Rate 83 95 Respiratory Rate 20 22 H Blood Pressure 140/94 H 154/87 H Pulse Oximetry 98 97 Exam Const: General: comfortable and no acute distress HENMT: General nose exam: Normal nares present Eyes: Sclera: sclera
[2020-07-17] MEDS: ALBUTEROL SULFATE (*SP) AEROSOL 1 PUFF 2 PUFF INHALATION ×2 (17:30→20:12)
[2020-07-17] MEDS: PRAVASTATIN SODIUM 20 MG TABLET PO (20:22)
[2020-07-18] VITALS (8 sets, daily range): BP systolic 132–142; BP diastolic 90–91; PULSE 75–93; RESP 12–20; TEMP 36.2–36.8; O2SAT 93–100
[2020-07-18] MEDS: methylPREDNISolone SOD SUCC 125 MG VIAL 60 MG IV PUSH (06:21)
[2020-07-18 06:47] LABS: Hematocrit 37.2 % (42.0-52.0); Hemoglobin 12.9 g/dL (14.0-18.0); Mean Corpuscular HGB Conc 34.7 g/dl (32-36); Mean Corpuscular Hemoglobin 31.4 pg (26-34); Mean Corpuscular Volume 90.5 fl (80-100); Mean Platelet Volume 9.4 fl (7.4-10.4); Platelet Count Result 267 k/mm3 (150-375); Red Blood Count 4.11 M/mm3 (4.6-6.20); White Blood Count 11.2 K/mm3 (4.5-10.0)
[2020-07-18 07:01] LABS: Anion Gap 11 mmol/L (8-16); Blood Urea Nitrogen 13 mg/dL (9-20); Carbon Dioxide 24 mmol/L (22-30); Chloride 106 mmol/L (98-107); Estimated CRCL calculation 63 ml/min; Estimated Glomerular Filt Rate > 60; Glucose 124 mg/dL (75-110); Potassium 4.1 mmol/L (3.4-5.0); Sodium 141 mmol/L (137-145)
[2020-07-18] MEDS: ALBUTEROL SULFATE (*SP) AEROSOL 1 PUFF 2 PUFF INHALATION ×4 (08:20→19:36)
[2020-07-18] MEDS: hydroCHLOROthiazide 12.5 MG CAPSULE PO (09:24)
[2020-07-18] MEDS: ACETAMINOPHEN 325 MG TABLET 650 MG PO (09:25)
[2020-07-18] MEDS: LOSARTAN POTASSIUM 50 MG TABLET PO (09:25)
[2020-07-18] MEDS: predniSONE 20 MG TABLET 60 MG PO (11:25)
--- NOTE | 2020-07-18 14:43 | PM.IMPN ---
Progress Note: A&P Assessment and Plan (1) Acute exacerbation of chronic obstructive airways disease: Code(s): J44.1 - Chronic obstructive pulmonary disease with (acute) exacerbation Status: Acute Assessment and Plan: 07/18/20 14:43 Denia Baker Jr. is a 60 year old male with past medical history of COPD he presented emergency department with a complaint worsening shortness of breath cough and wheezing he is diagnosed with exacerbation of COPD patient was started on Solu-Medrol updraft I have added doxycycline to cover for atypical as well as Pulmicort for his COPD, patient had a chest x-ray and emergency depart did not show any cardiopulmonary disease, patient states is feeling little better compared to when his arrived not as short of breath, denies any fever or chills, patient was tested for COVID-19 is negative. plan is to continue present management will taper Solu-Medrol as symptoms improve and further recommendation to follow, will have PT OT evaluate the patient, today 07/18 patient complains of persistent cough and chest pain with cough difficulty with ambulation and shortness of breath, patient denies any fever or chills but complains of being fatigued and tired patient continued to have exacerbation of COPD will continue IV doxycycline, prednisone, updraft and pulmicort. will continue present management will have a PT OT evaluate the patient and further recommendation to follow (2) Essential hypertension: Code(s): I10 - Essential (primary) hypertension Status: Acute Assessment and Plan: will continue home regimen and monitor (3) HLD (hyperlipidemia): Code(s): E78.5 - Hyperlipidemia, unspecified Status: Acute Assessment and Plan: will continue home regimen Subjective Date/time seen: 07/18/20 14:43 Denia Baker Jr. is a 60 year old male with past medical history of COPD he presented emergency department with a complaint worsening shortness of breath cough and wheezing he is diagnosed with exacerbation of COPD patient was started on Solu-Medrol updraft I have added doxycycline to cover for atypical as well as Pulmicort for his COPD, patient had a chest x-ray and emergency depart did not show any cardiopulmonary disease, patient states is feeling little better compared to when his arrived not as short of breath, denies any fever or chills, patient was tested for COVID-19 is negative. plan is to continue present management will taper Solu-Medrol as symptoms improve and further recommendation to follow, will have PT OT evaluate the patient, today 07/18 patient complains of persistent cough and chest pain with cough difficulty with ambulation and shortness of breath, patient denies any fever or chills but complains of being fatigued and tired patient continued to have exacerbation of COPD will continue IV doxycycline, prednisone, updraft and pulmicort. will continue present management will have a PT OT evaluate the patient and further recommendation to follow Review of Systems Review of Systems: All systems reviewed & are unremarkable except as noted in HPI and below Exam Const: General: comfortable and no acute distress HENMT: General nose exam: Normal nares present Eyes: Sclera: sclerae normal Neck: Neck: supple Resp: Other: bilateral fair air entry with wheezing and rhonchi Cardio: Rate: regular rate Rhythm: regular rhythm GI: Auscultation: normal bowel sounds Skin: General skin exam: normal color Neuro: Speech: normal speech Sensory Exam: normal sensation Extrem: General: normal to inspection Psych: Affect: Anxious affect present Objective Data Vital Signs Vital Signs: Vital Signs - 24 hr 07/17/20 20:20 07/17/20 20:22 07/17/20 21:58 Temperature 97.7 F Pulse Rate 96 96 91 Respiratory Rate 18 20 Blood Pressure 152/86 H Pulse Oximetry 97 98 07/17/20 22:20 07/17/20 23:39 07/18/20 06:00 Temperature 98.1 F Pulse Rate 93 89 9
[2020-07-18] MEDS: guaiFENesin 12 HR 600 MG TABCR PO ×2 (14:54→20:52)
[2020-07-18] MEDS: BENZONATATE 100 MG CAPSULE 200 MG PO ×2 (14:54→17:48)
[2020-07-18] MEDS: PRAVASTATIN SODIUM 20 MG TABLET PO (20:52)
[2020-07-19 07:18] LABS: Hematocrit 36.9 % (42.0-52.0); Hemoglobin 12.7 g/dL (14.0-18.0); Mean Corpuscular HGB Conc 34.4 g/dl (32-36); Mean Corpuscular Hemoglobin 31.3 pg (26-34); Mean Corpuscular Volume 90.9 fl (80-100); Mean Platelet Volume 9.6 fl (7.4-10.4); Platelet Count Result 251 k/mm3 (150-375); Red Blood Count 4.06 M/mm3 (4.6-6.20); Red Cell Distribution Width 12.2 % (11.5-14.5); White Blood Count 11.5 K/mm3 (4.5-10.0)
[2020-07-19 07:28] LABS: Anion Gap 7 mmol/L (8-16); Blood Urea Nitrogen 17 mg/dL (9-20); Calcium 9.5 mg/dL (8.4-10.2); Carbon Dioxide 28 mmol/L (22-30); Chloride 103 mmol/L (98-107); Estimated CRCL calculation 63 ml/min; Estimated Glomerular Filt Rate > 60; Glucose 99 mg/dL (75-110); Potassium 3.6 mmol/L (3.4-5.0); Sodium 138 mmol/L (137-145)
[2020-07-19 07:59] VITALS: O2SAT 94
[2020-07-19] MEDS: ALBUTEROL SULFATE (*SP) AEROSOL 1 PUFF 2 PUFF INHALATION ×2 (07:59→12:31)
[2020-07-19 08:00] VITALS: PULSE 80; RESP 12; O2SAT 94
[2020-07-19] MEDS: guaiFENesin 12 HR 600 MG TABCR PO (09:31)
[2020-07-19] MEDS: BENZONATATE 100 MG CAPSULE 200 MG PO ×3 (09:31→16:47)
[2020-07-19] MEDS: LOSARTAN POTASSIUM 50 MG TABLET PO (09:31)
[2020-07-19] MEDS: hydroCHLOROthiazide 12.5 MG CAPSULE PO (09:31)
[2020-07-19] MEDS: predniSONE 20 MG TABLET 60 MG PO (09:31)
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
--- NOTE | 2020-07-19 13:45 | PM.DS ---
DS: Admitting Diagnosis Admitting Diagnosis Admitting Diagnosis: AE COPD DS: Discharge Diagnosis Discharge Diagnosis (1) Acute exacerbation of chronic obstructive airways disease: Code(s): J44.1 - Chronic obstructive pulmonary disease with (acute) exacerbation Status: Acute Assessment and Plan: 07/18/20 14:43 Denia Baker Jr. is a 60 year old male with past medical history of COPD he presented emergency department with a complaint worsening shortness of breath cough and wheezing he is diagnosed with exacerbation of COPD patient was started on Solu-Medrol updraft I have added doxycycline to cover for atypical as well as Pulmicort for his COPD, patient had a chest x-ray and emergency depart did not show any cardiopulmonary disease, patient states is feeling little better compared to when his arrived not as short of breath, denies any fever or chills, patient was tested for COVID-19 is negative. plan is to continue present management will taper Solu-Medrol as symptoms improve and further recommendation to follow, will have PT OT evaluate the patient, today 07/18 patient complains of persistent cough and chest pain with cough difficulty with ambulation and shortness of breath, patient denies any fever or chills but complains of being fatigued and tired patient continued to have exacerbation of COPD will continue IV doxycycline, prednisone, updraft and pulmicort. will continue present management will have a PT OT evaluate the patient and further recommendation to follow (2) Essential hypertension: Code(s): I10 - Essential (primary) hypertension Status: Acute Assessment and Plan: will continue home regimen and monitor (3) HLD (hyperlipidemia): Code(s): E78.5 - Hyperlipidemia, unspecified Status: Acute Assessment and Plan: will continue home regimen DS: Summary Hospital Course Reason for hospitalization: Chief complaint: AE COPD Narrative: Denia Baker Jr. is a 60 year old male with past medical history of COPD he presented emergency department with a complaint worsening shortness of breath cough and wheezing he is diagnosed with exacerbation of COPD patient was started on Solu-Medrol updraft I have added doxycycline to cover for atypical as well as Pulmicort for his COPD, patient had a chest x-ray and emergency depart did not show any cardiopulmonary disease, patient states is feeling little better compared to when his arrived not as short of breath, denies any fever or chills, patient was tested for COVID-19 is negative. plan is to continue present management will taper Solu-Medrol as symptoms improve and further recommendation to follow Hospital Course: Denia Baker Jr. is a 60 year old male with past medical history of COPD he presented emergency department with a complaint worsening shortness of breath cough and wheezing he is diagnosed with exacerbation of COPD patient was started on Solu-Medrol updraft I have added doxycycline to cover for atypical as well as Pulmicort for his COPD, patient had a chest x-ray and emergency depart did not show any cardiopulmonary disease, patient states is feeling little better compared to when his arrived not as short of breath, denies any fever or chills, patient was tested for COVID-19 is negative. plan is to continue present management will taper Solu-Medrol as symptoms improve and further recommendation to follow, will have PT OT evaluate the patient, today 07/18 patient complains of persistent cough and chest pain with cough difficulty with ambulation and shortness of breath, patient denies any fever or chills but complains of being fatigued and tired patient continued to have exacerbation of COPD will continue IV doxycycline, prednisone, updraft and pulmicort. will continue present management will have a PT OT evaluate the patient and further recommendation to follow, patient was seen by pulmonology and started the patient on inhaler, did not n
[2020-07-19 14:00] VITALS: BP 148/92; PULSE 81; RESP 20; TEMP 36.1; O2SAT 100
--- NOTE | 2020-07-19 17:41 | PCRCNOTE ---
WINDOW OF TIME PASSED FOR RESPIRATORY [place]
== END 2020-07-19 17:47 | disposition home or self-care (01) ==
LOC: ANHED 05:21 → ANH3MEDSUR 06:31
PROVIDERS: Admitting Provider Family Medicine; Emergency Provider Emergency Medicine; PCP Emergency Medicine; Visit Provider Family Medicine
DX: J44.1 Chronic obstructive pulmonary disease with (acute) exacerbation (principal); I10 Essential (primary) hypertension; E78.5 Hyperlipidemia, unspecified; Z87.891 Personal history of nicotine dependence; R00.0 Tachycardia, unspecified; R91.8 Other nonspecific abnormal finding of lung field; Z23 Encounter for immunization; Z20.828 Contact with and (suspected) exposure to other viral communicable diseases
CPT/HCPCS: 36415; 71045; 80048; 80053; 85025; 85027; 87635; 90471; 90686; 93005; 94640; 96365; 96366; 96367; 96375; 96376; 99285; A9270; C9803; G0008; G0378; G0379; J0456; J2930; J7060; J7512; U0003

== ENCOUNTER 2020-07-27 06:27 | Emergency (ER) | payer OTHER, SELFPAY ==
--- NOTE | ~2020-07-27 | XR_ITS ---
EXAMINATION: XR chest 1V portable EXAM DATE: 07/27/2020 06:47 INDICATION: Cough. TECHNIQUE: Portable AP frontal chest x-ray was obtained. Comparison is made to prior examination from 07/17/2020. FINDINGS: The lungs are clear. There are no pleural effusions. The cardiomediastinal silhouette is within normal limits. There is no pneumothorax suspected. The bones and soft tissues are unremarkab le. IMPRESSION: No acute cardiopulmonary findings. Reviewed, dictated and finalized at location B.
[2020-07-27 06:28] VITALS: BP 116/86; PULSE 95; RESP 19; TEMP 36.6; O2SAT 100
[2020-07-27 06:32] VITALS: PULSE 95
--- NOTE | 2020-07-27 06:32 | ECG_ITS ---
Measurements Intervals [place] Rate: 101 P: 74 [place]: 156 QRS: -4 QRSD: 90 T: 32 QT: 321 QTc: 417 Interpretive Statements SINUS TACHYCARDIA VENTRICULAR PREMATURE COMPLEX NONSPECIFIC T-WAVE ABNORMALITY- INFERIOR LEADS BASELINE ARTIFACT- I, II, III, AVR, AVL, AVF ABNORMAL ECG Electronically Signed On 07-27-2020 7:30:14 CDT by Michael Fontaine D.O.
[2020-07-27 06:33] VITALS: O2SAT 99
[2020-07-27 06:46] LABS: Basophils Percent Auto 0.2 % (0.2-1.2); Eosinophils Absolute Auto 0.1 K/mm3 (0-0.3); Hematocrit 38.1 % (42.0-52.0); Immature Granulocyte Absolute 0.07 K/mm3 (0.00-0.031); Immature Granulocyte Percent A 0.7 % (0-0.5); Lymphocytes Absolute Auto 3.53 K/mm3 (0.9-3.2); Lymphocytes Percent Auto 33.5 % (18.3-44.2); Mean Corpuscular HGB Conc 34.1 g/dl (32-36); Mean Corpuscular Hemoglobin 31.3 pg (26-34); Mean Corpuscular Volume 91.6 fl (80-100); Mean Platelet Volume 8.7 fl (7.4-10.4); Monocytes Absolute Auto 0.7 K/mm3 (0.1-0.6); Monocytes Percent Auto 6.3 % (2.6-8.5); Neutrophils Absolute Auto 6.2 K/mm3 (1.3-6.7); Neutrophils Percent Auto 58.3 % (45.5-73.1); Platelet Count Result 282 k/mm3 (150-375); Red Blood Count 4.16 M/mm3 (4.6-6.20); Red Cell Distribution Width 13.1 % (11.5-14.5); White Blood Count 10.5 K/mm3 (4.5-10.0)
--- NOTE | 2020-07-27 07:03 | ED.SOB ---
HPI - SOB/Dyspnea General Chief Complaint: Shortness of Breath/Dyspnea Stated Complaint: sob Time Seen by Provider: 07/27/20 06:51 Source: patient Mode of arrival: EMS Limitations: no limitations History of Present Illness HPI Narrative: This patient is a 60 year old male smoker with history of hypertension and COPD who presents for evaluation of shortness of breath. PAtient states that he walking from the [facility] to [place] when he developed shortness of breath. He states his car broke down so he was trying to walk. He developed sob, left chest pain and a headache so he stopped inside a hotel. He sat down for 30 minutes and used his albuterol rescue inhaler. He states he feels better. HE denies fever , chills, nausea, vomiting or diarrhea. He still has some left chest pain and upper abdominal pain. He denies any cardiac history. He states he feels better than when he was discharged last week. Related Data Home Medications Medication Instructions Recorded Confirmed pravastatin 20 mg tablet 20 mg PO HS 10/18/19 07/17/20 hydrochlorothiazide 12.5 mg PO DAILY 06/19/20 07/17/20 losartan 50 mg PO DAILY 06/19/20 07/17/20 albuterol sulfate 2 puff INHALATION Q4H PRN 07/17/20 07/17/20 Allergies Allergy/AdvReac Type Severity Reaction Status Date / Time No Known Allergies Allergy Verified 07/27/20 06:33 Review of Systems Review of Systems: All systems reviewed & are unremarkable except as noted in HPI and below Constitutional: Constitutional: Denies chills and Denies fever(s) Cardiovascular: Cardiovascular: Reports chest pain Respiratory: Respiratory: Reports dyspnea and Reports wheezing Gastrointestinal: Gastrointestinal: Reports abdominal pain, Denies diarrhea, Denies nausea and Denies vomiting Neurologic: Reports headache(s) [facility] Past Medical History Medical History (Updated 07/27/20 @ 09:23 by Jessica Anna MD) Chronic bronchitis COPD (chronic obstructive pulmonary disease) Essential hypertension HLD (hyperlipidemia) Tobacco abuse Surgical History Surgical History No pertinent past surgical history Family History Family History (Updated 07/17/20 @ 07:46 by Eliza De La Torre RN) Sibling Lung cancer Sibling Hypertension Mother Diabetes mellitus Father Hypertension Heart disease Social History Social History Social History: Patient lives at home with his two younger brother. He has multiple surrogate MDM, but would like his sister Fe to be her primary MDM. He sees Dr. Puga as his PCP and Dr. Barnhart for his pulmonary issues. He states he smoked about 0.5 pack per day for roughly 30 years but just quit roughly 1.5 weeks ago. Smoking packs per day: 0.5 Smoking cigarettes per day: 10.0 Years smoked: 30 Smoking pack-years: 15.00 Smoking status: Current some day smoker Tobacco type: cigarettes Additional smoking assessment comments: States he quit 1.5 weeks ago Alcohol intake: current Drinks per week: 6 Substance use: never Gender identity (if verbalized by the patient): Male Spiritual care concerns: No Exam Const: General: alert Orientation/consciousness: patient oriented x3 HENMT: Head: normocephalic and atraumatic Face and sinus: face symmetric Mouth: Yes Normal oral and palatal mucosa present, Yes lip normal, Yes oropharynx normal and Yes moist mucous membranes Throat: posterior oropharynx normal, tonsils normal and uvula midline Eyes: Pupils: Equal, round and reactive pupils present EOM: EOMs intact bilaterally Chest: Chest palpation & inspection: normal inspection of the chest Resp: Effort & Inspection: normal respiratory effort, no retractions and no use of accessory muscles Auscultation: clear to auscultation bilaterally Cardio: Rate: regular rate Rhythm: regular rhythm H
[2020-07-27 07:23] LABS: Prothrombin Time 12.5 Seconds (11.1-14.7)
[2020-07-27 07:24] LABS: Partial Thromboplastin Time 23.5 SECONDS (22.3-36.8)
[2020-07-27 07:30] VITALS: BP 123/83; PULSE 81; RESP 16; O2SAT 99
[2020-07-27 07:35] LABS: Lipase 104 U/L (23-300)
[2020-07-27 07:40] LABS: Alanine Aminotransferase 151 U/L (4-50); Albumin Level 4.6 g/dL (3.5-5.1); Alkaline Phosphatase 52 U/L (38-126); Anion Gap 11 mmol/L (8-16); Aspartate Amino Transferase 51 U/L (17-59); Bilirubin,Total 0.8 mg/dL (0.2-1.3); Blood Urea Nitrogen 18 mg/dL (9-20); Calcium 9.3 mg/dL (8.4-10.2); Carbon Dioxide 26 mmol/L (22-30); Chloride 101 mmol/L (98-107); Estimated CRCL calculation 71 ml/min; Estimated Glomerular Filt Rate > 60; Glucose 80 mg/dL (75-110); Potassium 4.4 mmol/L (3.4-5.0); Sodium 138 mmol/L (137-145)
[2020-07-27 07:45] LABS: Troponin I < 0.012 ng/mL (0.000-0.034)
[2020-07-27 08:00] VITALS: BP 121/81; PULSE 78; RESP 16; O2SAT 99
[2020-07-27 09:30] VITALS: BP 132/96; PULSE 90; RESP 16; O2SAT 98
== END 2020-07-27 09:30 | disposition left against medical advice (07) ==
PROVIDERS: Emergency Medicine; Emergency Provider General Practice; PCP Emergency Medicine
DX: R07.9 Chest pain, unspecified (principal); J44.9 Chronic obstructive pulmonary disease, unspecified; I10 Essential (primary) hypertension; E78.5 Hyperlipidemia, unspecified; Z87.891 Personal history of nicotine dependence; I49.3 Ventricular premature depolarization; R00.0 Tachycardia, unspecified; R94.31 Abnormal electrocardiogram [ECG] [EKG]
CPT/HCPCS: 36415; 71045; 80053; 83690; 84484; 85025; 85610; 85730; 93005; 96374; 99284; J0131

== ENCOUNTER 2020-08-10 09:28 | Outpatient (CLI) | payer OTHER, SELFPAY ==
[2020-08-10 10:37] LABS: Hematocrit 35.9 % (42.0-52.0); Hemoglobin 12.4 g/dL (14.0-18.0); Mean Corpuscular HGB Conc 34.5 g/dl (32-36); Mean Corpuscular Hemoglobin 31.8 pg (26-34); Mean Corpuscular Volume 92.1 fl (80-100); Mean Platelet Volume 8.6 fl (7.4-10.4); Platelet Count Result 222 k/mm3 (150-375); White Blood Count 4.1 K/mm3 (4.5-10.0)
[2020-08-10 10:50] LABS: Alanine Aminotransferase 172 U/L (4-50); Alkaline Phosphatase 49 U/L (38-126); Anion Gap 6 mmol/L (8-16); Aspartate Amino Transferase 116 U/L (17-59); Bilirubin,Total 0.4 mg/dL (0.2-1.3); Blood Urea Nitrogen 10 mg/dL (9-20); Calcium 8.8 mg/dL (8.4-10.2); Carbon Dioxide 27 mmol/L (22-30); Chloride 105 mmol/L (98-107); Estimated Glomerular Filt Rate > 60; Glucose 87 mg/dL (75-110); Potassium 3.7 mmol/L (3.4-5.0); Sodium 138 mmol/L (137-145)
[2020-08-10 11:20] LABS: Thyroid Stimulating Hormone 0.954 uIU/mL (0.465-4.680)
[2020-08-10 11:32] LABS: Free T4 Free Thyroxine 0.89 ng/mL (0.78-2.19)
== END 2020-08-10 09:29 | disposition home or self-care (01) ==
PROVIDERS: PCP Emergency Medicine; Visit Provider Emergency Medicine
DX: R94.5 Abnormal results of liver function studies (principal); Z00.00 Encounter for general adult medical examination without abnormal findings; D72.829 Elevated white blood cell count, unspecified
CPT/HCPCS: 36415; 80053; 84439; 84443; 85027

== ENCOUNTER 2021-01-26 14:06 | Outpatient (CLI) | payer OTHER, SELFPAY ==
[2021-01-26 14:50] LABS: Basophils Percent Auto 0.6 % (0.2-1.2); Eosinophils Absolute Auto 0.2 K/mm3 (0-0.3); Hematocrit 36.4 % (42.0-52.0); Hemoglobin 12.5 g/dL (14.0-18.0); Immature Reticulocyte Fraction 13.2 % (3.0-15.9); Lymphocytes Absolute Auto 1.62 K/mm3 (0.9-3.2); Lymphocytes Percent Auto 33.7 % (18.3-44.2); Mean Corpuscular HGB Conc 34.3 g/dl (32-36); Mean Corpuscular Hemoglobin 31.4 pg (26-34); Mean Corpuscular Volume 91.5 fl (80-100); Mean Platelet Volume 8.9 fl (7.4-10.4); Monocytes Absolute Auto 0.3 K/mm3 (0.1-0.6); Monocytes Percent Auto 5.8 % (2.6-8.5); Neutrophils Absolute Auto 2.7 K/mm3 (1.3-6.7); Neutrophils Percent Auto 55.9 % (45.5-73.1); Platelet Count Result 271 k/mm3 (150-375); Red Blood Count 3.98 M/mm3 (4.6-6.20); Red Cell Distribution Width 12.4 % (11.5-14.5); Reticulocyte Hemoglobin Conten 38.1 pg (28.2-35.7); Reticulocyte Percent 1.53 % (0.7-4.3); Reticulocytes Absolute 0.06 B/L (32.2-175.7); White Blood Count 4.8 K/mm3 (4.5-10.0)
[2021-01-26 15:06] LABS: Alanine Aminotransferase 192 U/L (4-50); Albumin Level 4.7 g/dL (3.5-5.1); Alkaline Phosphatase 76 U/L (38-126); Anion Gap 7 mmol/L (8-16); Aspartate Amino Transferase 99 U/L (17-59); Bilirubin,Total 0.5 mg/dL (0.2-1.3); Blood Urea Nitrogen 7 mg/dL (9-20); Calcium 9.6 mg/dL (8.4-10.2); Carbon Dioxide 29 mmol/L (22-30); Chloride 103 mmol/L (98-107); Estimated Glomerular Filt Rate > 60; Glucose 98 mg/dL (75-110); Lactate Dehydrogenase 527 U/L (313-618); Sodium 139 mmol/L (137-145)
[2021-01-26 15:15] LABS: Iron 101 ug/dL (49-181)
[2021-01-26 15:24] LABS: Percent Iron Saturation 33 % (20-50)
[2021-01-26 15:32] LABS: Thyroid Stimulating Hormone 0.857 uIU/mL (0.465-4.680)
[2021-01-26 16:06] LABS: Folic Acid 12.7 ng/mL (2.76->20)
== END 2021-01-26 14:07 | disposition home or self-care (01) ==
PROVIDERS: PCP Emergency Medicine; Visit Provider Internal Medicine Hematology & Oncology
DX: D64.9 Anemia, unspecified (principal)
CPT/HCPCS: 36415; 80053; 82607; 82728; 82746; 83540; 83550; 83615; 84443; 85025; 85046

== ENCOUNTER 2021-10-14 05:58 | Emergency (ER) | payer OTHER, SELFPAY ==
--- NOTE | ~2021-10-14 | XR_ITS ---
XR chest 1V portable DATE: 10/14/2021 09:08 INDICATION: Patient was unresponsive. Headache, dizziness. TECHNIQUE: Portable upright AP chest on 10/14/2021 at 0903 hours COMPARISON: 07/27/2020 portable AP chest FINDINGS: Normal heart size. No hilar or mediastinal enlargement. The lungs are clear. No pleural eff usion or pulmonary vascular congestion or pneumothorax. Osteopenia. IMPRESSION: No active cardiopulmonary disease Reviewed, dictated and finalized at location A. NG FLOOR SUPERVISOR
--- NOTE | ~2021-10-14 | CT_ITS ---
EXAMINATION: CT brain wo con DATE: 10/14/2021 08:46 INDICATION: Headache, frontal area. History of migraines. Dizziness. Confusion. TECHNIQUE: Computed tomography (CT) of the head was performed without intravenous contrast. The mA wa s adjusted according to patient size. Iterative reconstruction technique was employed. Exam dose: 60 5.33 mGy-cm total exam DLP. COMPARISON: 06/13/2019 CT brain FINDINGS: No intracranial mass lesion or hemorrhage or cerebrovascular accident. No midline shift or mass effect. Normal ventricular size. No subdural or epidural hematoma. No fracture or bone destruction of the cranial vault. Included paranasal sinuses and mastoid air cell s are unremarkable. IMPRESSION: No significant abnormality Reviewed, dictated and finalized at Location A. Reviewed, dictated and finalized at location A. F LOCK OPERATOR IMPRESSION: No significant abnormality
[2021-10-14 06:15] VITALS: BP 127/73; PULSE 106; RESP 17; O2SAT 98
[2021-10-14 07:02] LABS: Glucose Point of Care 174 mg/dl (65-105)
--- NOTE | 2021-10-14 07:13 | ECG_ITS ---
Measurements Intervals [place] Rate: 111 P: 66 AL: 152 QRS: 31 QRSD: 88 T: 54 QT: 319 QTc: 434 Interpretive Statements SINUS TACHYCARDIA POSSIBLE LEFT ATRIAL ENLARGEMENT CANNOT RULE OUT SEPTAL INFARCT, AGE INDETERMINATE BORDERLINE ST ABNORMALITY- ANTEROLAT/INF LEADS ABNORMAL ECG Electronically Signed On 10-14-2021 9:06:13 FRAME TRIMMER by Michael Fontaine D.O.
[2021-10-14 07:35] LABS: Basophils Percent Auto 0.2 % (0.2-1.2); Hematocrit 42.8 % (42.0-52.0); Hemoglobin 14.5 g/dL (14.0-18.0); Immature Granulocyte Absolute 0.04 K/mm3 (0.00-0.031); Immature Granulocyte Percent A 0.4 % (0-0.5); Lymphocytes Absolute Auto 0.79 K/mm3 (0.9-3.2); Lymphocytes Percent Auto 8.3 % (18.3-44.2); Mean Corpuscular HGB Conc 33.9 g/dl (32-36); Mean Corpuscular Hemoglobin 32.1 pg (26-34); Mean Corpuscular Volume 94.7 fl (80-100); Mean Platelet Volume 8.6 fl (7.4-10.4); Monocytes Absolute Auto 0.3 K/mm3 (0.1-0.6); Monocytes Percent Auto 3.2 % (2.6-8.5); Neutrophils Absolute Auto 8.3 K/mm3 (1.3-6.7); Neutrophils Percent Auto 87.9 % (45.5-73.1); Platelet Count Result 328 k/mm3 (150-375); Red Blood Count 4.52 M/mm3 (4.6-6.20); Red Cell Distribution Width 12.3 % (11.5-14.5); White Blood Count 9.5 K/mm3 (4.5-10.0)
[2021-10-14 07:38] LABS: Add Urine Microscopic? YES; Appearance Urine Clear (Clear); Bilirubin Urine Negative (Negative); Blood Urine 1+ (Negative); Color Urine Yellow (Yellow); Glucose Urine UA 1+ mg/dL (Negative); Ketones Urine 1+ mg/dL (Negative); Leukocyte Esterase Ur Negative LEU/UL (Negative); Mucus Urine Rare /lpf; Nitrate Urine Negative (Negative); Protein Urine 1+ mg/dL (Negative); Specific Grav Ur 1.015 (1.001-1.035); Urobilinogen Urine Negative mg/dL (<2.0); WBC Urine 0-3 /hpf
[2021-10-14 07:44] LABS: Alanine Aminotransferase 123 U/L (4-50); Albumin Level 5.1 g/dL (3.5-5.1); Alkaline Phosphatase 86 U/L (38-126); Anion Gap 21 mmol/L (8-16); Aspartate Amino Transferase 76 U/L (17-59); Bilirubin,Total 0.7 mg/dL (0.2-1.3); Blood Urea Nitrogen 17 mg/dL (9-20); Calcium 9.4 mg/dL (8.4-10.2); Carbon Dioxide 13 mmol/L (22-30); Chloride 101 mmol/L (98-107); Estimated Glomerular Filt Rate > 60; Glucose 150 mg/dL (65-110); Potassium 4.9 mmol/L (3.4-5.0); Sodium 135 mmol/L (137-145)
--- NOTE | 2021-10-14 07:45 | ED.GENADULT ---
HPI - General Adult General Chief complaint: Recheck/Abnormal Lab/Rx Stated complaint: diabetic emergency bs 20 Time Seen by Provider: 10/14/21 07:17 Source: patient, EMS and RN notes reviewed Mode of arrival: EMS Limitations: no limitations History of Present Illness HPI narrative: Patient brought to the emergency room from home because of unresponsiveness and blood glucose of 20. Patient became awake after IV glucose. Patient still me that he been drinking heavily over the last 48 hours, last meal over 24 hours ago, also been using crack cocaine. Patient denies history of diabetes. Currently feeling wheezy and headache. History of COPD, did not take any medication over the last 48 hours patient because he was so busy with drinking and using cocaine. Patient is fully vaccinated, last vaccine was November 2020 Related Data Home Medications Medication Instructions Recorded Confirmed pravastatin 20 mg tablet 20 mg PO HS 10/18/19 06/12/21 hydrochlorothiazide 12.5 mg PO DAILY 06/19/20 06/12/21 losartan 50 mg PO DAILY 06/19/20 06/12/21 Allergies Allergy/AdvReac Type Severity Reaction Status Date / Time No Known Allergies Allergy Verified 06/12/21 13:11 Review of Systems Review of Systems: CONSTITUTIONAL: Denies fever, chills, or sweats. EYES: Denies visual changes, redness, or discharge. ENT: Denies rhinorrhea, congestion, sore throat, or otalgia. CARDIOVASCULAR: Denies chest pain, palpitations, or edema. RESPIRATORY: Denies cough or dyspnea. GASTROINTESTINAL: Denies abdominal pain, nausea, vomiting, or diarrhea. GENITOURINARY: Denies dysuria or hematuria. SKIN: Denies rash or itching. MUSCULOSKELETAL: Denies back pain, joint pain, or myalgia. NEUROLOGIC: Denies headache, numbness, or weakness. PSYCHIATRIC: Denies anxiety or depression. [facility] Past Medical History Medical History Chronic bronchitis COPD (chronic obstructive pulmonary disease) Coughing up blood Essential hypertension HLD (hyperlipidemia) Tobacco abuse Surgical History Surgical History No pertinent past surgical history Family History Family History Sibling Lung cancer Sibling Hypertension Mother Diabetes mellitus Father Hypertension Heart disease Social History Social History Social History: Patient lives at home with his two younger brother. He has multiple surrogate MDM, but would like his sister Fe to be her primary MDM. He sees Dr. Puga as his PCP and Dr. Barnhart for his pulmonary issues. He states he smoked about 0.5 pack per day for roughly 30 years but just quit roughly 1.5 weeks ago. Smoking packs per day: 0.5 Smoking cigarettes per day: 10.0 Years smoked: 30 Smoking pack-years: 15.00 Smoking status: Current every day smoker Tobacco type: cigarettes Additional smoking assessment comments: States he quit 1.5 weeks ago Alcohol intake: current Drinks per week: 6 Substance use: never Gender identity (if verbalized by the patient): Male Sexual Orientation (if Verbalized by the Patient): Straight or Heterosexual Spiritual care concerns: No Exam Narrative: General appearance: Well-developed, well-nourished Skin: Normal color Head: Normocephalic, nontraumatic Eyes: Clear conjunctiva ENT: Oropharynx normal, ears normal, nose normal Neck: Supple, nontender Chest and respiratory: Airway patent, widespread wheezing Heart: Regular rate/rhythm Abdomen: Soft, nontender, no organomegaly, quiet bowel sounds Vascular: Normal peripheral pulses, normal capillary refill. Musculoskeletal: Normal range of motion, nontender back Neurologic: Alert and oriented ?3, JOB SETTER HONING is normal as tested, no gross motor deficit
[2021-10-14 07:47] LABS: Ethanol 21 mg/dL (<10)
[2021-10-14 07:56] LABS: Amphetamine Screen Urine Negative (Negative); Barbiturate Screen Urine Negative (Negative); Benzodiazepines Screen Urine Negative (Negative); Cannabinoid Screen Urine Negative (Negative); Cocaine Screen Urine Positive (Negative); Methadone Screen Urine Negative (Negative); Opiate Screen Urine Negative (Negative); Phencyclidine Screen Urine Negative (Negative)
[2021-10-14 08:10] VITALS: PULSE 119; RESP 12
[2021-10-14] MEDS: ALBUTEROL SULFATE NEB 2.5 MG/0.5 ML INH 5 MG INHALATION (08:12)
[2021-10-14] MEDS: IPRATROPIUM BR 0.02% INH SOLN 0.5 MG/2.5 ML VIAL INHALATION (08:12)
[2021-10-14 08:17] VITALS: PULSE 116; RESP 16
[2021-10-14 08:31] LABS: INR 0.9; Prothrombin Time 12.2 Seconds (11.1-14.7)
[2021-10-14 08:32] LABS: Partial Thromboplastin Time 21.5 SECONDS (22.3-36.8)
[2021-10-14] MEDS: ACETAMINOPHEN 325 MG TABLET 650 MG PO (11:22)
[2021-10-14] MEDS: IBUPROFEN 600 MG TABLET PO (11:22)
[2021-10-14 11:38] VITALS: BP 152/97; PULSE 115; RESP 16; O2SAT 99
== END 2021-10-14 11:35 | disposition home or self-care (01) ==
PROVIDERS: Emergency Provider Emergency Medicine; PCP Emergency Medicine
DX: E16.2 Hypoglycemia, unspecified (principal); F10.10 Alcohol abuse, uncomplicated; F14.10 Cocaine abuse, uncomplicated; Y90.1 Blood alcohol level of 20-39 mg/100 ml; J44.9 Chronic obstructive pulmonary disease, unspecified; E78.5 Hyperlipidemia, unspecified; Z87.891 Personal history of nicotine dependence
CPT/HCPCS: 36415; 70450; 71045; 80053; 80307; 81001; 82948; 85025; 85610; 85730; 93005; 94640; 99284; A9270

== ENCOUNTER 2021-11-15 12:58 | Inpatient (IN) | payer OTHER, SELFPAY ==
[2021-11-15] VITALS (17 sets, daily range): BP systolic 136–172; BP diastolic 88–110; PULSE 98–115; RESP 15–23; TEMP 36.3–36.4; O2SAT 93–100; BMI 21.7
--- NOTE | ~2021-11-15 | CT_ITS ---
EXAMINATION: CT abdomen pelvis w con DATE: 11/16/2021 10:33 INDICATION: Generalized abdominal pain. Diarrhea. TECHNIQUE: Computed tomography (CT) of the abdomen and pelvis was performed with 100 mL Omnipaque 350 intravenous contrast. Automated exposure control and iterative reconstruction technique were employe d. The dose-length product was 412.85 mGy-cm. COMPARISON: CT abdomen and pelvis 05/04/2018 FINDINGS: The visualized portions of the lung bases demonstrate fluid in bronchi bilaterally. No pleu ral effusion. The heart size is normal. There are coronary artery calcifications. No pericardial effu hayden. The liver, spleen, gallbladder, pancreas, adrenal glands are normal. There is a 7 mm cyst in ri ght kidney. 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 The prostate is mildly enlarge d. There are no dilated loops of bowel. The appendix is normal. There is fat stranding around the rodrigo iac axis. No significant stenosis. There are no pathologically enlarged lymph nodes. There is no free intraperitoneal fluid. There is a benign bone island in L4. IMPRESSION: 1. No specific etiology for the patient's symptoms. Reviewed, dictated and finalized at location A. GING ROLL OPERATOR
--- NOTE | ~2021-11-15 | XR_ITS ---
EXAMINATION: XR chest 1V portable DATE: 11/15/2021 14:57 INDICATION: Shortness of breath. TECHNIQUE: A single frontal view of the chest was obtained. COMPARISON: Chest single view 10/14/2021, chest CT 06/20/2020 FINDINGS: The chest demonstrates clear lungs without pneumonia, pleural effusion, or pneumothorax. Th e heart size is normal. There is an old healed fracture of left clavicle. IMPRESSION: 1. No acute cardiopulmonary disease. Reviewed, dictated and finalized at location A. PROFESSIONAL INTERPRETER
--- NOTE | ~2021-11-15 | US_ITS ---
EXAMINATION: US abdomen limited DATE: 11/19/2021 15:00 INDICATION: Elevated liver function tests TECHNIQUE: Multiple grayscale and Doppler ultrasound images of the abdomen were obtained. COMPARISON: None available FINDINGS: Bowel gas obscures visualization of the pancreas. The visualized portions of the pancreas a re unremarkable. The liver is normal with normal echogenicity and echotexture. No surface nodularity. Normal hepatopetal flow in the main portal vein. The gallbladder is normal with no abnormal wall thi ckening, pericholecystic fluid or stones. The normal common bile duct measures 5 mm. There was no son ographic Vasquez sign. IMPRESSION: 1. Normal sonographic study of the gallbladder. Reviewed, dictated and finalized at location B. SERVICE CLERK
--- NOTE | 2021-11-15 14:23 | ECG_ITS ---
Measurements Intervals [place] Rate: 109 P: 79 MN: 157 QRS: 35 QRSD: 84 T: 76 QT: 321 QTc: 432 Interpretive Statements SINUS TACHYCARDIA POSSIBLE RIGHT ATRIAL ENLARGEMENT DELAYED PRECORDIAL R/S TRANSITION LOW QRS VOLTAGE IN LIMB LEADS BORDERLINE ST-T WAVE ABNORMALITY- INF/LAT LEADS BASELINE ARTIFACT- I, II, III, AVR, AVL ABNORMAL ECG Electronically Signed On 11-17-2021 7:48:49 PTA by Michael Fontaine D.O.
[2021-11-15] MEDS: ALBUTEROL SULFATE NEB 2.5 MG/0.5 ML INH 5 MG INHALATION ×2 (14:56→20:17)
[2021-11-15] MEDS: IPRATROPIUM BR 0.02% INH SOLN 0.5 MG/2.5 ML VIAL INHALATION ×2 (14:56→20:17)
[2021-11-15] MEDS: methylPREDNISolone SOD SUCC 125 MG VIAL IV PUSH (14:58)
[2021-11-15] MEDS: MAGNESIUM SULF 2 GM/WATER 50ML 2 GM/50 ML BAG IVPB (14:58)
--- NOTE | 2021-11-15 15:03 | ED.GENADULT ---
HPI - General Adult General Chief complaint: Shortness of Breath/Dyspnea Stated complaint: Shortness of breath Time Seen by Provider: 11/15/21 14:23 Source: patient Mode of arrival: EMS Limitations: no limitations History of Present Illness HPI narrative: Patient is a 61 yo male with COPD presenting with chief complaint of exacerbation it began earlier today. Patient reports that he takes inhalers for his COPD and also has a nebulizer machine at home. Patient reports that he use those devices and still have shortness of breath and wheezing so he called EMS. Patient reports being put on oxygen in the ambulance and receiving a breathing treatment without resolution of his symptoms. Patient denies recent illnesses but states at times his COPD exacerbates and he has been hospitalized twice in the past for this the last episode being last year. Patient denies recent illnesses such as fever, chills, cough. Patient denies exposure to allergens. Patient denies chest pain. Related Data Home Medications Medication Instructions Recorded Confirmed pravastatin 20 mg tablet 20 mg PO HS 10/18/19 06/12/21 hydrochlorothiazide 12.5 mg PO DAILY 06/19/20 06/12/21 losartan 50 mg PO DAILY 06/19/20 06/12/21 Allergies Allergy/AdvReac Type Severity Reaction Status Date / Time No Known Allergies Allergy Verified 11/15/21 18:04 Review of Systems Review of Systems: CONSTITUTIONAL: Denies fever, chills, or sweats. EYES: Denies visual changes, redness, or discharge. ENT: Denies rhinorrhea, congestion, sore throat, or otalgia. CARDIOVASCULAR: Denies chest pain, palpitations, or edema. RESPIRATORY: Reports wheezing and dyspnea. GASTROINTESTINAL: Denies abdominal pain, nausea, vomiting, or diarrhea. GENITOURINARY: Denies dysuria or hematuria. SKIN: Denies rash or itching. MUSCULOSKELETAL: Denies back pain, joint pain, or myalgia. NEUROLOGIC: Denies headache, numbness, dizziness, or weakness. PSYCHIATRIC: Denies anxiety or depression. [facility] Past Medical History Medical History Chronic bronchitis COPD (chronic obstructive pulmonary disease) Coughing up blood Essential hypertension HLD (hyperlipidemia) Tobacco abuse Surgical History Surgical History No pertinent past surgical history Family History Family History Sibling Lung cancer Sibling Hypertension Mother Diabetes mellitus Father Hypertension Heart disease Social History Social History Social History: Patient lives at home with his two younger brother. He has multiple surrogate MDM, but would like his sister Fe to be her primary MDM. He sees Dr. Puga as his PCP and Dr. Barnhart for his pulmonary issues. He states he smoked about 0.5 pack per day for roughly 30 years but just quit roughly 1.5 weeks ago. Smoking packs per day: 0.5 Smoking cigarettes per day: 10.0 Years smoked: 30 Smoking pack-years: 15.00 Smoking status: Current every day smoker Tobacco type: cigarettes Additional smoking assessment comments: States he quit 1.5 weeks ago Alcohol intake: current Drinks per week: 6 Substance use: never Gender identity (if verbalized by the patient): Male Sexual Orientation (if Verbalized by the Patient): Straight or Heterosexual Spiritual care concerns: No Exam Narrative: GENERAL: Well-appearing, well-nourished, appears uncomfortable. HEAD: Normocephalic, atraumatic. EYES: PERRLA and EOMI. CHEST: Clear to auscultation. Patient tachypneic. Wheezing audible without stethesope. Tight wheezing heard in all lung hairston. HEART: tachycardic rate with regualar rhythm. No murmur heard. Normal peripheral pulses. EXTREMITIES: Normal range of motion. No edema. SKIN: Warm, dry, no rash. NEURO: No focal deficits. Alert and oriented x3. PSYCH:
[2021-11-15 15:16] LABS: Basophils Absolute Auto 0.1 K/mm3 (0.0-0.1); Basophils Percent Auto 0.8 % (0.2-1.2); Eosinophils Absolute Auto 0.8 K/mm3 (0-0.3); Hematocrit 39.7 % (42.0-52.0); Hemoglobin 14.3 g/dL (14.0-18.0); Immature Granulocyte Absolute 0.01 K/mm3 (0.00-0.031); Immature Granulocyte Percent A 0.2 % (0-0.5); Lymphocytes Absolute Auto 1.36 K/mm3 (0.9-3.2); Lymphocytes Percent Auto 21.3 % (18.3-44.2); Mean Corpuscular Volume 88.8 fl (80-100); Mean Platelet Volume 8.5 fl (7.4-10.4); Monocytes Absolute Auto 0.4 K/mm3 (0.1-0.6); Monocytes Percent Auto 6.9 % (2.6-8.5); Neutrophils Absolute Auto 3.8 K/mm3 (1.3-6.7); Neutrophils Percent Auto 58.8 % (45.5-73.1); Platelet Count Result 299 k/mm3 (150-375); Red Blood Count 4.47 M/mm3 (4.6-6.20); Red Cell Distribution Width 12.1 % (11.5-14.5); White Blood Count 6.4 K/mm3 (4.5-10.0)
[2021-11-15 15:25] LABS: Alanine Aminotransferase 61 U/L (4-50); Albumin Level 5.2 g/dL (3.5-5.1); Alkaline Phosphatase 86 U/L (38-126); Anion Gap 13 mmol/L (8-16); Aspartate Amino Transferase 40 U/L (17-59); Bilirubin,Total 0.5 mg/dL (0.2-1.3); Blood Urea Nitrogen 4 mg/dL (9-20); Calcium 10.1 mg/dL (8.4-10.2); Carbon Dioxide 23 mmol/L (22-30); Chloride 103 mmol/L (98-107); Estimated CRCL calculation 79 ml/min; Estimated Glomerular Filt Rate > 60; Glucose 108 mg/dL (65-110); Potassium 3.8 mmol/L (3.4-5.0); Sodium 139 mmol/L (137-145)
[2021-11-15 15:39] LABS: D Dimer 0.27 ug/mL (<0.48)
[2021-11-15] MEDS: HYDROcodone/acetaminophen (*CRX) 5-325 MG TABLET 1 TAB PO (16:38)
[2021-11-15 17:29] LABS: SARS-CoV-2 RNA PCR Negative
--- NOTE | 2021-11-15 18:33 | PM.IMHP ---
H&P: HPI History of Present Illness Date/Time: 11/15/21 18:33 this is a 61-year-old male patient who does have a history of COPD. The patient uses his inhaler as directed. The patient has been coughing and also uses nebulizer at home. Patient still remained short of breath and was having difficulty breathing. He felt himself wheezing as well. He activated the EMS. The patient was placed on oxygen at 2 L per nasal cannula in the ambulance. The patient has had similar exacerbations of COPD in the past. He denied any fever chills. The patient stated that he has been using Tessalon Perles for his cough. Sometimes he uses Mucinex. Chest x-ray was read as no acute cardiopulmonary disease. The patient was given Solu-Medrol, DuoNeb treatment, magnesium, Tylenol, [place] and hydralazine. The patient is being admitted to observation status on the date of service of 11/15/2021. Chief Complaint: Shortness of breath Review of Systems Review of Systems: All systems reviewed & are unremarkable except as noted in HPI and below Constitutional: Constitutional: Reports as per HPI and Reports no additional constitutional complaints Eyes: Eyes: Reports as per HPI and Reports no additional eye complaints ENT: Reports system reviewed and no additional complaints, except as documented and Reports Normal hearing present Cardiovascular: Cardiovascular: Reports no additional cardiovascular complaints Respiratory: Respiratory: Reports no additional respiratory complaints and Reports no additional respiratory complaints Gastrointestinal: Gastrointestinal: Reports as per HPI and Reports no additional gastrointestinal complaints Musculoskeletal: Musculoskeletal: Reports no additional musculoskeletal complaints Integumentary/Breasts: Skin/Breast: Reports system reviewed and no additional complaints, except as docu and Reports as per HPI Neurologic: Reports system reviewed and no additional complaints, except as documented, Reports as per HPI and Reports Normal hearing present Psychiatric: Psychiatric: Reports no additional psychiatric complaints and Reports as per HPI Endocrine: Endocrine: Reports no additional endocrine complaints Hematologic/Lymphatic: Hematologic/Lymphatic: Reports no additional hematologic/lymphatic complaints Allergic/Immunologic: Allergic/Immunologic: Reports no additional allergic/immunologic complaints [facility] Past Medical History Medical History Chronic bronchitis COPD (chronic obstructive pulmonary disease) Coughing up blood Essential hypertension HLD (hyperlipidemia) Tobacco abuse Surgical History Surgical History H/O oral surgery H/O shoulder surgery Family History Family History Sibling Lung cancer Sibling Hypertension Mother Diabetes mellitus Father Hypertension Heart disease Social History Social History (Updated 11/15/21 @ 20:24 by Charity Jensen NP) Social History: Patient lives at home with his two younger brother. He has multiple surrogate MDM, but would like his sister Fe to be her primary MDM. He sees Dr. Puga as his PCP and Dr. Barnhart for his pulmonary issues. He states he smoked about 0.5 pack per day for roughly 30 years. The patient works for [employer]. Code status full code. Smoking packs per day: 0.5 Smoking cigarettes per day: 10.0 Years smoked: 30 Smoking pack-years: 15.00 Smoking status: Current every day smoker Tobacco type: cigarettes Alcohol intake: current Drinks per week: 3 Substance use: never Substance use type: does not use Other substance usage details: drinks vodka and beer Gender identity (if verbalized by the patient): Male Sexual Orientation (if Verbalized by the Patient): Straight or Heterosexual Spiritual care concerns: No Meds Home Medications and Allergie
[2021-11-15] MEDS: hydrALAZINE HCL 20 MG/ML VIAL 10 MG IV PUSH (18:46)
--- NOTE | 2021-11-15 19:20 | ADMGEN ---
This patient, Denia Baker Jr., was admitted to Medical Room 258-01. Patient/family oriented to hospital policies and general routines including ID bracelet, bed and alarms, visiting hours, pain management, procedures, bathroom and other care routines, personal items, smoking policy, room service/diet, and visiting hours. Information on how to activate the Rapid Response Team has been discussed. Patient/Family are encouraged to report perceived risks to care and to ask questions if they do not understand what they are told or what they should do.
[2021-11-15] MEDS: IPRATROPIUM BR 0.02% INH SOLN 0.5 MG/2.5 ML VIAL 1 MG INHALATION (20:47)
[2021-11-15] MEDS: ALBUTEROL SULFATE NEB 2.5 MG/0.5 ML INH 10 MG INHALATION (20:47)
[2021-11-15] MEDS: PRAVASTATIN SODIUM 20 MG TABLET PO (22:32)
[2021-11-15] MEDS: methylPREDNISolone SOD SUCC 125 MG VIAL 60 MG IV PUSH (23:41)
[2021-11-16] VITALS (23 sets, daily range): BP systolic 121–127; BP diastolic 68–78; PULSE 88–120; RESP 16–24; TEMP 36.2–36.7; O2SAT 93–98
[2021-11-16] MEDS: IPRATROPIUM BR 0.02% INH SOLN 0.5 MG/2.5 ML VIAL INHALATION ×6 (02:03→22:28)
[2021-11-16] MEDS: ALBUTEROL SULFATE NEB 2.5 MG/0.5 ML INH 5 MG INHALATION ×6 (02:03→22:28)
[2021-11-16] MEDS: methylPREDNISolone SOD SUCC 125 MG VIAL 60 MG IV PUSH ×3 (06:01→17:02)
[2021-11-16 06:11] LABS: Eosinophils Percent Auto 0.1 % (0-4.4); Hematocrit 39.8 % (42.0-52.0); Hemoglobin 14.1 g/dL (14.0-18.0); Immature Granulocyte Absolute 0.03 K/mm3 (0.00-0.031); Immature Granulocyte Percent A 0.4 % (0-0.5); Lymphocytes Absolute Auto 0.88 K/mm3 (0.9-3.2); Lymphocytes Percent Auto 12.3 % (18.3-44.2); Mean Corpuscular HGB Conc 35.4 g/dl (32-36); Mean Corpuscular Hemoglobin 31.7 pg (26-34); Mean Corpuscular Volume 89.4 fl (80-100); Mean Platelet Volume 8.8 fl (7.4-10.4); Monocytes Absolute Auto 0.1 K/mm3 (0.1-0.6); Monocytes Percent Auto 1.4 % (2.6-8.5); Neutrophils Absolute Auto 6.1 K/mm3 (1.3-6.7); Neutrophils Percent Auto 85.8 % (45.5-73.1); Platelet Count Result 309 k/mm3 (150-375); Red Blood Count 4.45 M/mm3 (4.6-6.20); Red Cell Distribution Width 12.2 % (11.5-14.5); White Blood Count 7.1 K/mm3 (4.5-10.0)
[2021-11-16 06:25] LABS: Lactic Acid Reflex 1.5 mmol/L (0.7-2.1)
[2021-11-16] MEDS: ACETAMINOPHEN 325 MG TABLET 650 MG PO ×3 (06:32→20:21)
[2021-11-16] MEDS: UMECLIDINIUM/VILANTEROL 62.5-25 MCG ELLIPTA 1 PUFF INHALATION (08:13)
[2021-11-16] MEDS: hydroCHLOROthiazide 12.5 MG CAPSULE PO (08:29)
[2021-11-16] MEDS: guaiFENesin 12 HR 600 MG TABCR PO (08:29)
[2021-11-16] MEDS: BENZONATATE 100 MG CAPSULE 200 MG PO ×3 (08:29→16:29)
[2021-11-16] MEDS: ENOXAPARIN 40 MG/0.4 ML SYRINGE SUB-Q (08:30)
[2021-11-16] MEDS: LOSARTAN POTASSIUM 50 MG TABLET PO (08:30)
[2021-11-16 08:32] LABS: Alveolar/Arterial O2 Gradient 119.9 mmHg; Base Excess ABG -4.2 mEq/l (+/-2.0); Device NASAL CANNULA; Fractional Inspired Oxygen 32 %; HCO3 ABG 19.7 mEq/l (22.0-26.0); Modified Allen's Test Pass; Oxygen Content ABG 20.7 %vol (16.0-22.0); Oxyhemoglobin 92.5 % THb (90.0-100.0); PCO2 ABG 33.1 mmHg (35.0-45.0); PO2 ABG 69.5 mmHg (80.0-100.0); PO2 FiO2 Ratio Arterial Blood 2.17 %; Site Drawn RIGHT RADIAL; Total Hemoglobin 15.9 g/dL (12.0-18.0); pH ABG 7.392 (7.350-7.450)
--- NOTE | 2021-11-16 09:44 | PM.IMPN ---
Progress Note: A&P Assessment and Plan (1) Chronic obstructive pulmonary disease with (acute) exacerbation: Code(s): J44.1 - Chronic obstructive pulmonary disease with (acute) exacerbation Status: Acute Assessment and Plan: -Continue with Solu-Medrol and DuoNebs. -on 1L [place], does not wear home oxygen -still having diffuse wheezing -sees Dr. Guadalupe outpatient (2) HLD (hyperlipidemia): Code(s): E78.5 - Hyperlipidemia, unspecified Status: Acute Assessment and Plan: Continue with pravastatin. (3) Essential hypertension: Code(s): I10 - Essential (primary) hypertension Status: Acute Assessment and Plan: Continue with losartan and hydrochlorothiazide. (4) Abdominal pain: Code(s): R10.9 - Unspecified abdominal pain Status: Acute Assessment and Plan: -c/o abd pain and diarrhea -mildly tender diffusely -will check CT -no leukocytosis or fever Subjective Date/time seen: 11/16/21 09:44 Interval history: 61 yo male w/ hx of HLD and COPD admitted for COPD exacerbation. Pt states his sob has somewhat improved. He was on 2L on admission and weaned down to 1L this morning. He does not wear home oxygen. States the breathing treatments are helping. Notes he had some abdominal pain that he developed yesterday and started having diarrhea this morning. Pain is constant and crampy in nature. No N/V. No fever, chills. Had chest pain yesterday but states this has resolved since starting nebs and oxygen. Review of Systems Review of Systems: All systems reviewed & are unremarkable except as noted in HPI and below Exam Narrative: General: No acute distress, non toxic appearing Eyes: PERRL, no scleral icterus HEENT: NCAT, external ears normal, MMM Respiratory: No respiratory distress, expiratory wheezing all lung [place], on 1L NC, speaking in full sentences Cardiovascular: tachycardic, regular rhythm Abdominal: Soft, mild ttp diffusely, non distended, no rebound or guarding Musculoskeletal: Moves all 4 extremities, no edema Neurological: A/Ox3, speech normal, no facial asymmetry Skin: Warm, dry, no rashes Psychiatric: Normal affect, normal mood Objective Data Vital Signs Vital Signs: Vital Signs - 24 hr 11/15/21 13:49 11/15/21 14:57 11/15/21 15:02 Temperature Pulse Rate 115 H 114 H 106 H Respiratory Rate 18 23 H 16 Blood Pressure 150/110 H 151/101 H Pulse Oximetry 99 98 11/15/21 15:07 11/15/21 15:08 11/15/21 16:40 Temperature Pulse Rate 112 H 112 H 114 H Respiratory Rate 15 15 21 H Blood Pressure 152/101 H 136/108 H Pulse Oximetry 100 97 11/15/21 18:02 11/15/21 18:07 11/15/21 18:16 Temperature Pulse Rate 104 H 102 H Respiratory Rate 18 17 Blood Pressure 163/107 H 143/109 H Pulse Oximetry 98 98 97 11/15/21 18:47 11/15/21 19:46 11/15/21 20:00 Temperature 97.6 F Pulse Rate 98 98 111 H Respiratory Rate 19 18 Blood Pressure 172/108 H 149/88 H Pulse Oximetry 99 97 97 11/15/21 20:10 11/15/21 20:18 11/15/21 20:26 Temperature Pulse Rate 108 H 115 H Respiratory Rate 22 H 22 H Blood Pressure Pulse Oximetry 93 11/15/21 20:50 11/15/21 22:00 11/16/21 00:00 Temperature 97.3 F L Pulse Rate 111 H 101 H 103 H Respiratory Rate 22 H 18 Blood Pressure 141/92 H Pulse Oximetry 96 11/16/21 02:05 11/16/21 02:15 11/16/21 04:00 Temperature Pulse Rate 113 H 117 H 92 Respiratory Rate 24 H 24 H Blood Pressure Pulse Oximetry 11/16/21 05:57 11/16/21 06:00 11/16/21 06:07 Temperature 97.2 F L Pulse Rate 94 88 98 Respiratory Rate 22 H 16 22 H Blood Pressure 124/78 Pulse Oximetry 94 11/16/21 08:13 11/16/21 08:22 Temperature Pulse Rate 110 H 104 H Respiratory Rate 24 H 22 H Blood Pressure Pulse Oximetry Intake/Output Intake/Output: Intake & Output 11/13/21 11/14/21 11/15/21 11/16/21 23:59 23:59 23:59 23:59 Intake Total 50
[2021-11-16 09:59] LABS: Alanine Aminotransferase 51 U/L (4-50); Albumin Level 4.9 g/dL (3.5-5.1); Alkaline Phosphatase 79 U/L (38-126); Anion Gap 9 mmol/L (8-16); Aspartate Amino Transferase 34 U/L (17-59); Bilirubin,Total 0.5 mg/dL (0.2-1.3); Blood Urea Nitrogen 11 mg/dL (9-20); Calcium 10.4 mg/dL (8.4-10.2); Carbon Dioxide 23 mmol/L (22-30); Chloride 106 mmol/L (98-107); Estimated CRCL calculation 79 ml/min; Estimated Glomerular Filt Rate > 60; Glucose 133 mg/dL (65-110); Lactate Dehydrogenase 496 U/L (313-618); Magnesium 2.4 mg/dL (1.6-2.3); Sodium 138 mmol/L (137-145)
[2021-11-16 11:41] LABS: Free T4 Free Thyroxine Reflex 0.86 ng/dL (0.78-2.19)
[2021-11-16] MEDS: PRAVASTATIN SODIUM 20 MG TABLET PO (20:21)
[2021-11-17] VITALS (23 sets, daily range): BP systolic 123–138; BP diastolic 82–84; PULSE 79–117; RESP 16–20; TEMP 36.2–36.6; O2SAT 95–99
[2021-11-17] MEDS: methylPREDNISolone SOD SUCC 125 MG VIAL 60 MG IV PUSH ×5 (00:50→23:59)
[2021-11-17] MEDS: ALBUTEROL SULFATE NEB 2.5 MG/0.5 ML INH 5 MG INHALATION ×6 (01:09→21:53)
[2021-11-17] MEDS: IPRATROPIUM BR 0.02% INH SOLN 0.5 MG/2.5 ML VIAL INHALATION ×6 (01:09→21:53)
[2021-11-17 05:50] LABS: Basophils Percent Auto 0.1 % (0.2-1.2); Hematocrit 36.2 % (42.0-52.0); Hemoglobin 12.6 g/dL (14.0-18.0); Immature Granulocyte Absolute 0.11 K/mm3 (0.00-0.031); Immature Granulocyte Percent A 0.8 % (0-0.5); Lymphocytes Absolute Auto 0.69 K/mm3 (0.9-3.2); Lymphocytes Percent Auto 5.2 % (18.3-44.2); Mean Corpuscular HGB Conc 34.8 g/dl (32-36); Mean Corpuscular Hemoglobin 32.2 pg (26-34); Mean Corpuscular Volume 92.6 fl (80-100); Monocytes Absolute Auto 0.3 K/mm3 (0.1-0.6); Monocytes Percent Auto 2.4 % (2.6-8.5); Neutrophils Absolute Auto 12.3 K/mm3 (1.3-6.7); Neutrophils Percent Auto 91.5 % (45.5-73.1); Platelet Count Result 284 k/mm3 (150-375); Red Blood Count 3.91 M/mm3 (4.6-6.20); Red Cell Distribution Width 12.9 % (11.5-14.5); White Blood Count 13.4 K/mm3 (4.5-10.0)
[2021-11-17 05:58] LABS: Anion Gap 5 mmol/L (8-16); Blood Urea Nitrogen 17 mg/dL (9-20); Calcium 9.8 mg/dL (8.4-10.2); Carbon Dioxide 24 mmol/L (22-30); Chloride 106 mmol/L (98-107); Estimated CRCL calculation 71 ml/min; Estimated Glomerular Filt Rate > 60; Glucose 138 mg/dL (65-110); Potassium 3.9 mmol/L (3.4-5.0); Sodium 135 mmol/L (137-145)
[2021-11-17] MEDS: ENOXAPARIN 40 MG/0.4 ML SYRINGE SUB-Q (08:33)
[2021-11-17] MEDS: hydroCHLOROthiazide 12.5 MG CAPSULE PO (08:33)
[2021-11-17] MEDS: LOSARTAN POTASSIUM 50 MG TABLET PO (08:33)
[2021-11-17] MEDS: BENZONATATE 100 MG CAPSULE 200 MG PO ×3 (08:33→17:07)
[2021-11-17] MEDS: ACETAMINOPHEN 325 MG TABLET 650 MG PO (08:36)
[2021-11-17] MEDS: UMECLIDINIUM/VILANTEROL 62.5-25 MCG ELLIPTA 1 PUFF INHALATION (09:58)
--- NOTE | 2021-11-17 11:54 | PM.IMPN ---
Progress Note: A&P Assessment and Plan (1) Chronic obstructive pulmonary disease with (acute) exacerbation: Code(s): J44.1 - Chronic obstructive pulmonary disease with (acute) exacerbation Status: Acute Assessment and Plan: -Continue with Solu-Medrol and DuoNebs. -currently on 2L [place], does not wear home oxygen -no wheezing today -sees Dr. Guadalupe outpatient (2) HLD (hyperlipidemia): Code(s): E78.5 - Hyperlipidemia, unspecified Status: Acute Assessment and Plan: Continue with pravastatin. (3) Essential hypertension: Code(s): I10 - Essential (primary) hypertension Status: Acute Assessment and Plan: Continue with losartan and hydrochlorothiazide. (4) Abdominal pain: Code(s): R10.9 - Unspecified abdominal pain Status: Acute Assessment and Plan: -CT abd/pelv no acute findings -no leukocytosis or fever Subjective Date/time seen: 11/17/21 11:54 Interval history: 61 yo male w/ hx of HLD and COPD admitted for COPD exacerbation. Pt states he was feeling better until he got up to take a shower this morning and he got very sob with activity. He feels his wheezing has also increased however his lungs are CTA on exam. He is currently resting comfortably on 2L NC. His abdominal pain from yesterday has resolved. Diarrhea has also resolved. No chest pain. Review of Systems Review of Systems: All systems reviewed & are unremarkable except as noted in HPI and below Exam Narrative: General: No acute distress, non toxic appearing Eyes: PERRL, no scleral icterus HEENT: NCAT, external ears normal, MMM Respiratory: No respiratory distress, Lungs CTA bilaterally, no wheezing Cardiovascular: RRR, no murmur Abdominal: Soft, non tender, non distended, no rebound or guarding Musculoskeletal: Moves all 4 extremities, no edema Neurological: A/Ox3, speech normal, no facial asymmetry Skin: Warm, dry, no rashes Psychiatric: Normal affect, normal mood Objective Data Vital Signs Vital Signs: Vital Signs - 24 hr 11/16/21 12:02 11/16/21 14:00 11/16/21 15:25 Temperature 97.9 F Pulse Rate 120 H 110 H 104 H Respiratory Rate 17 24 H Blood Pressure 121/70 Pulse Oximetry 94 11/16/21 15:35 11/16/21 16:00 11/16/21 20:00 Temperature Pulse Rate 104 H 117 H 97 Respiratory Rate 24 H 21 H Blood Pressure Pulse Oximetry 94 11/16/21 22:00 11/16/21 22:28 11/16/21 22:29 Temperature 98.1 F Pulse Rate 103 H 97 Respiratory Rate 20 21 H Blood Pressure 127/68 Pulse Oximetry 98 94 11/16/21 22:41 11/17/21 00:00 11/17/21 01:09 Temperature Pulse Rate 98 107 H 84 Respiratory Rate 20 18 Blood Pressure Pulse Oximetry 11/17/21 01:15 11/17/21 04:00 11/17/21 04:04 Temperature Pulse Rate 86 90 79 Respiratory Rate 20 18 Blood Pressure Pulse Oximetry 11/17/21 04:12 11/17/21 06:00 11/17/21 08:40 Temperature 97.1 F L Pulse Rate 80 99 Respiratory Rate 19 18 Blood Pressure 131/82 Pulse Oximetry 97 97 11/17/21 10:00 11/17/21 10:02 11/17/21 10:06 Temperature Pulse Rate 82 80 Respiratory Rate 18 18 Blood Pressure Pulse Oximetry 95 Intake/Output Intake/Output: Intake & Output 11/14/21 11/15/21 11/16/21 11/17/21 23:59 23:59 23:59 23:59 Intake Total 50 1460 400 Output Total 1600 300 Balance 50 -140 100 Meds/Results Medications: Active Medications Generic Name Dose Route Start Last Admin Trade Name Freq PRN Reason Stop Dose Admin Acetaminophen 650 mg 11/15/21 19:41 11/17/21 08:36 Acetaminophen 325 Mg Tablet PO 650 mg Q4H PRN Administration Headache Albuterol 5 mg 11/16/21 08:00 11/17/21 09:58 Albuterol Sulfate Neb 2.5 Mg/0.5 Ml Inh INHALATION 5 mg Q4HRT JONA Administration Alprazolam 0.25 mg 11/16/21 09:03 Alprazolam (*Crx) 0.25 Mg Tablet PO BID PRN Anxiety Benzonatate 200 mg 11/16/21 09:0
[2021-11-17] MEDS: guaiFENesin 12 HR 600 MG TABCR PO (12:38)
[2021-11-17] MEDS: PRAVASTATIN SODIUM 20 MG TABLET PO (20:34)
[2021-11-18] VITALS (23 sets, daily range): BP systolic 125–147; BP diastolic 80–92; PULSE 79–112; RESP 16–20; TEMP 36.1–36.7; O2SAT 90–99
[2021-11-18] MEDS: IPRATROPIUM BR 0.02% INH SOLN 0.5 MG/2.5 ML VIAL INHALATION ×7 (00:18→23:52)
[2021-11-18] MEDS: ALBUTEROL SULFATE NEB 2.5 MG/0.5 ML INH 5 MG INHALATION ×7 (00:18→23:52)
[2021-11-18] MEDS: methylPREDNISolone SOD SUCC 125 MG VIAL 60 MG IV PUSH ×2 (05:55→17:20)
[2021-11-18 06:01] LABS: Hematocrit 36.3 % (42.0-52.0); Hemoglobin 12.2 g/dL (14.0-18.0); Mean Corpuscular HGB Conc 33.6 g/dl (32-36); Mean Corpuscular Hemoglobin 32.2 pg (26-34); Mean Corpuscular Volume 95.8 fl (80-100); Mean Platelet Volume 9.2 fl (7.4-10.4); Platelet Count Result 256 k/mm3 (150-375); Red Blood Count 3.79 M/mm3 (4.6-6.20); Red Cell Distribution Width 12.9 % (11.5-14.5); White Blood Count 12.2 K/mm3 (4.5-10.0)
[2021-11-18 06:23] LABS: Anion Gap 6 mmol/L (8-16); Blood Urea Nitrogen 15 mg/dL (9-20); Calcium 9.6 mg/dL (8.4-10.2); Carbon Dioxide 25 mmol/L (22-30); Chloride 106 mmol/L (98-107); Estimated CRCL calculation 79 ml/min; Estimated Glomerular Filt Rate > 60; Glucose 163 mg/dL (65-110); Potassium 3.7 mmol/L (3.4-5.0); Sodium 137 mmol/L (137-145)
--- NOTE | 2021-11-18 08:25 | PM.IMPN ---
Progress Note: A&P Assessment and Plan (1) Chronic obstructive pulmonary disease with (acute) exacerbation: Code(s): J44.1 - Chronic obstructive pulmonary disease with (acute) exacerbation Status: Acute Assessment and Plan: -Continue with Solu-Medrol and DuoNebs. Will taper down steroid as he improves clinically. -currently on 1L [place], does not wear home oxygen -sees Dr. Guadalupe outpatient -home oxygen study tomorrow (2) HLD (hyperlipidemia): Code(s): E78.5 - Hyperlipidemia, unspecified Status: Acute Assessment and Plan: Continue with pravastatin. (3) Essential hypertension: Code(s): I10 - Essential (primary) hypertension Status: Acute Assessment and Plan: Continue with losartan and hydrochlorothiazide. (4) Abdominal pain: Code(s): R10.9 - Unspecified abdominal pain Status: Acute Assessment and Plan: -with associated diarrhea -CT abd/pelv no acute findings -no leukocytosis or fever -resolved (5) Hyperglycemia: Code(s): R73.9 - Hyperglycemia, unspecified Status: Acute Assessment and Plan: -mildly elevated blood sugar, no hx of DM -check A1c -sliding scale and hypoglycemic protocol Subjective Date/time seen: 11/18/21 08:25 Interval history: 61 yo male w/ hx of HLD and COPD admitted for COPD exacerbation. Pt feeling better today. Was weaned down to 1L NC. He states his sob has overall improved. No sob at rest and mild sob with exertion. Still having wheezing but feels this has improved too. Also still having headache which is chronic for him. Review of Systems Review of Systems: All systems reviewed & are unremarkable except as noted in HPI and below Exam Narrative: General: No acute distress, non toxic appearing Eyes: PERRL, no scleral icterus HEENT: NCAT, external ears normal, MMM Respiratory: No respiratory distress, scattered wheezes Cardiovascular: RRR, no murmur Abdominal: Soft, non tender, non distended, no rebound or guarding Musculoskeletal: Moves all 4 extremities, no edema Neurological: A/Ox3, speech normal, no facial asymmetry Skin: Warm, dry, no rashes Psychiatric: Normal affect, normal mood Objective Data Vital Signs Vital Signs: Vital Signs - 24 hr 11/17/21 08:40 11/17/21 10:00 11/17/21 10:02 Temperature Pulse Rate 82 Respiratory Rate 18 Blood Pressure Pulse Oximetry 97 95 11/17/21 10:06 11/17/21 13:25 11/17/21 13:33 Temperature Pulse Rate 80 117 H 110 H Respiratory Rate 18 18 18 Blood Pressure Pulse Oximetry 11/17/21 14:23 11/17/21 16:00 11/17/21 17:36 Temperature 97.5 F L Pulse Rate 101 H 99 100 Respiratory Rate 16 18 Blood Pressure 123/83 Pulse Oximetry 99 11/17/21 17:51 11/17/21 20:00 11/17/21 21:53 Temperature Pulse Rate 105 H 101 H 105 H Respiratory Rate 18 18 18 Blood Pressure Pulse Oximetry 96 11/17/21 22:00 11/17/21 22:02 11/17/21 22:11 Temperature 97.9 F Pulse Rate 101 H 107 H Respiratory Rate 18 18 Blood Pressure 138/84 Pulse Oximetry 96 98 11/18/21 00:22 11/18/21 00:27 11/18/21 00:54 Temperature Pulse Rate 104 H 106 H 87 Respiratory Rate 18 20 Blood Pressure Pulse Oximetry 11/18/21 04:00 11/18/21 04:05 11/18/21 04:07 Temperature Pulse Rate 91 94 95 Respiratory Rate 18 20 Blood Pressure Pulse Oximetry 11/18/21 06:00 Temperature 97.0 F L Pulse Rate 79 Respiratory Rate 20 Blood Pressure 125/83 Pulse Oximetry 99 Intake/Output Intake/Output: Intake & Output 11/15/21 11/16/21 11/17/21 11/18/21 23:59 23:59 23:59 23:59 Intake Total 50 1460 1120 450 Output Total 1600 300 700 Balance 50 -140 820 -250 Meds/Results Medications: Active Medications Generic Name Dose Route Start Last Admin Trade Name Freq PRN Reason Stop Dose Admin Acetaminophen 650 mg 11/15/21 19:41 11/17/21 08:36 Acetaminophen 325
[2021-11-18] MEDS: hydroCHLOROthiazide 12.5 MG CAPSULE PO (08:29)
[2021-11-18] MEDS: ENOXAPARIN 40 MG/0.4 ML SYRINGE SUB-Q (08:29)
[2021-11-18] MEDS: ACETAMINOPHEN 325 MG TABLET 650 MG PO ×2 (08:29→17:21)
[2021-11-18] MEDS: BENZONATATE 100 MG CAPSULE 200 MG PO ×3 (08:29→17:20)
[2021-11-18] MEDS: LOSARTAN POTASSIUM 50 MG TABLET PO (08:29)
[2021-11-18] MEDS: guaiFENesin 12 HR 600 MG TABCR PO (08:30)
[2021-11-18] MEDS: UMECLIDINIUM/VILANTEROL 62.5-25 MCG ELLIPTA 1 PUFF INHALATION (10:15)
[2021-11-18 11:55] LABS: Glucose Point of Care 102 mg/dl (65-105)
[2021-11-18 17:32] LABS: Glucose Point of Care 154 mg/dl (65-105)
[2021-11-18] MEDS: PRAVASTATIN SODIUM 20 MG TABLET PO (20:05)
[2021-11-18 21:32] LABS: Glucose Point of Care 137 mg/dl (65-105)
[2021-11-19] VITALS (19 sets, daily range): BP systolic 124–139; BP diastolic 75–84; PULSE 72–125; RESP 16–24; TEMP 36.5–36.6; O2SAT 95–99
[2021-11-19] MEDS: ALBUTEROL SULFATE NEB 2.5 MG/0.5 ML INH 5 MG INHALATION ×4 (04:36→23:47)
[2021-11-19] MEDS: IPRATROPIUM BR 0.02% INH SOLN 0.5 MG/2.5 ML VIAL INHALATION ×3 (04:36→23:48)
[2021-11-19] MEDS: methylPREDNISolone SOD SUCC 125 MG VIAL 60 MG IV PUSH (05:43)
[2021-11-19] MEDS: ACETAMINOPHEN 325 MG TABLET 650 MG PO (06:44)
[2021-11-19 06:51] LABS: Basophils Percent Auto 0.1 % (0.2-1.2); Hematocrit 35.1 % (42.0-52.0); Hemoglobin 11.9 g/dL (14.0-18.0); Immature Granulocyte Absolute 0.08 K/mm3 (0.00-0.031); Immature Granulocyte Percent A 0.8 % (0-0.5); Lymphocytes Absolute Auto 0.91 K/mm3 (0.9-3.2); Lymphocytes Percent Auto 9.1 % (18.3-44.2); Mean Corpuscular HGB Conc 33.9 g/dl (32-36); Mean Corpuscular Hemoglobin 32.2 pg (26-34); Mean Corpuscular Volume 95.1 fl (80-100); Mean Platelet Volume 9.1 fl (7.4-10.4); Monocytes Absolute Auto 0.6 K/mm3 (0.1-0.6); Monocytes Percent Auto 5.6 % (2.6-8.5); Neutrophils Absolute Auto 8.5 K/mm3 (1.3-6.7); Neutrophils Percent Auto 84.4 % (45.5-73.1); Platelet Count Result 235 k/mm3 (150-375); Red Blood Count 3.69 M/mm3 (4.6-6.20); Red Cell Distribution Width 12.7 % (11.5-14.5)
[2021-11-19 07:03] LABS: Alanine Aminotransferase 310 U/L (4-50); Albumin Level 3.9 g/dL (3.5-5.1); Alkaline Phosphatase 52 U/L (38-126); Anion Gap 4 mmol/L (8-16); Aspartate Amino Transferase 170 U/L (17-59); Bilirubin,Total 0.2 mg/dL (0.2-1.3); Blood Urea Nitrogen 16 mg/dL (9-20); Calcium 9.3 mg/dL (8.4-10.2); Carbon Dioxide 27 mmol/L (22-30); Chloride 105 mmol/L (98-107); Estimated CRCL calculation 79 ml/min; Estimated Glomerular Filt Rate > 60; Glucose 119 mg/dL (65-110); Potassium 3.8 mmol/L (3.4-5.0); Sodium 136 mmol/L (137-145)
[2021-11-19 07:04] LABS: Hemoglobin A1C 5.4 % (<5.7)
[2021-11-19 07:45] LABS: Glucose Point of Care 111 mg/dl (65-105)
[2021-11-19] MEDS: ENOXAPARIN 40 MG/0.4 ML SYRINGE SUB-Q (08:21)
[2021-11-19] MEDS: LOSARTAN POTASSIUM 50 MG TABLET PO (08:21)
[2021-11-19] MEDS: guaiFENesin 12 HR 600 MG TABCR PO (08:21)
[2021-11-19] MEDS: BENZONATATE 100 MG CAPSULE 200 MG PO ×3 (08:21→16:41)
[2021-11-19] MEDS: hydroCHLOROthiazide 12.5 MG CAPSULE PO (08:21)
[2021-11-19] MEDS: predniSONE 10 MG TABLET 40 MG PO (08:22)
--- NOTE | 2021-11-19 08:24 | PM.DS ---
DS: Admitting Diagnosis Discharge Date 11/19/21 Admitting Diagnosis COPD exacerbation DS: Discharge Diagnosis Discharge Diagnosis (1) Chronic obstructive pulmonary disease with (acute) exacerbation: Code(s): J44.1 - Chronic obstructive pulmonary disease with (acute) exacerbation Status: Acute Assessment and Plan: - Solu-Medrol and DuoNebs. Will taper down steroid as he improves clinically. -weaned from 2L NC down to RA -sees [facility] outpatient, will schedule follow up appt on discharge -home oxygen study (2) HLD (hyperlipidemia): Code(s): E78.5 - Hyperlipidemia, unspecified Status: Acute Assessment and Plan: Continued with pravastatin. (3) Essential hypertension: Code(s): I10 - Essential (primary) hypertension Status: Acute Assessment and Plan: Continued with losartan and hydrochlorothiazide. (4) Abdominal pain: Code(s): R10.9 - Unspecified abdominal pain Status: Acute Assessment and Plan: -with associated diarrhea -CT abd/pelv no acute findings -no leukocytosis or fever -resolved (5) Hyperglycemia: Code(s): R73.9 - Hyperglycemia, unspecified Status: Acute Assessment and Plan: -mildly elevated blood sugar, no hx of DM -check A1c -sliding scale and hypoglycemic protocol -sending pt home on prednisone taper, will advise him to check his sugars routinely while on steroids and to call his pcp if they begin rising DS: Summary Hospital Course Reason for hospitalization: 61 yo male w/ hx of HLD and COPD admitted for COPD exacerbation. Please see HPI for further details. Hospital Course: Please see above for details of hospital course. Time spent discussing smoking cessation with patient: more than 10 minutes Status at Discharge Cognitive/behavioral status at discharge: stable Functional status at discharge: independent ambulation Overall status at discharge: patient is progressing back to baseline Time Spent with Patient Time attestation: Total time spent providing and/or coordinating discharge services: 32 Time spent: Greater than 30 minutes Exam Narrative: General: No acute distress, non toxic appearing Eyes: PERRL, no scleral icterus HEENT: NCAT, external ears normal, MMM Respiratory: No respiratory distress, scattered wheezes Cardiovascular: RRR, no murmur Abdominal: Soft, non tender, non distended, no rebound or guarding Musculoskeletal: Moves all 4 extremities, no edema Neurological: A/Ox3, speech normal, no facial asymmetry Skin: Warm, dry, no rashes Psychiatric: Normal affect, normal mood DS: Data Data Completed and Pending Labs on day of discharge: Labs from last 24 hours 11/19/21 11/19/21 11/19/21 07:41 06:06 06:06 WBC 10.0 RBC 3.69 L Hgb 11.9 L Hct 35.1 L MCV 95.1 MCH 32.2 MCHC 33.9 RDW 12.7 Plt Count 235 MPV 9.1 Immature Gran % (Auto) 0.8 H Neut % (Auto) 84.4 H Lymph % (Auto) 9.1 L [place] % (Auto) 5.6 Eos % (Auto) 0.0 Baso % (Auto) 0.1 L Lymph # (Auto) 0.91 [place] # (Auto) 0.6 Eos # (Auto) 0.0 Baso # (Auto) 0.0 Abs Immat Gran (auto) 0.08 H Absolute Neuts (auto) 8.5 H Absolute Nucleated RBC 0.0 Nucleated RBC % 0.0 Sodium 136 L Potassium 3.8 Chloride 105 Carbon Dioxide 27 Anion Gap 4 L BUN 16 Creatinine 0.80 Estim Creat Clear Calc 79 Estimated GFR > 60 Glucose 119 H POC Capillary Glucose 111 H Hemoglobin A1c Calcium 9.3 Total Bilirubin 0.2 AST 170 H ALT 310 H Alkaline Phosphatase 52 Total Protein 6.0 L Albumin 3.9 11/19/21 11/18/21 11/18/21 06:06 20:03 17:24 WBC RBC Hgb Hct MCV MCH MCHC RDW Plt Count MPV Immature Gran % (Auto) Neut % (Auto) Lymph % (Auto) [place] % (Auto) Eos % (Auto) Baso % (Auto) Lymph # (Auto) [place] # (Auto)
--- NOTE | 2021-11-19 08:28 | PM.IMPN ---
Progress Note: A&P Assessment and Plan (1) Chronic obstructive pulmonary disease with (acute) exacerbation: Code(s): J44.1 - Chronic obstructive pulmonary disease with (acute) exacerbation Status: Acute Assessment and Plan: -Solu-Medrol and DuoNebs. Will taper down steroid as he improves clinically. -weaned from 2L NC down to RA -sees Dr. Guadalupe outpatient, will schedule follow up appt on discharge -home oxygen study today (2) HLD (hyperlipidemia): Code(s): E78.5 - Hyperlipidemia, unspecified Status: Acute Assessment and Plan: -on hold due to elevated LFTs (3) Essential hypertension: Code(s): I10 - Essential (primary) hypertension Status: Acute Assessment and Plan: Continue with losartan and hydrochlorothiazide. (4) Abdominal pain: Code(s): R10.9 - Unspecified abdominal pain Status: Acute Assessment and Plan: -with associated diarrhea -CT abd/pelv no acute findings -no leukocytosis or fever -resolved (5) Hyperglycemia: Code(s): R73.9 - Hyperglycemia, unspecified Status: Acute Assessment and Plan: -mildly elevated blood sugar, no hx of DM -A1c 5.4 -sliding scale and hypoglycemic protocol (6) Elevated LFTs: Code(s): R79.89 - Other specified abnormal findings of blood chemistry Status: Acute Assessment and Plan: -mild elevation noted today -CT abd/pelv negative -check RUQ US -hold statin -stop tylenol, suspect this as part of the problem as he takes this frequently for headaches, sometime more than 4000 mg daily. Subjective Date/time seen: 11/19/21 08:28 Interval history: 61 yo male w/ hx of HLD and COPD admitted for COPD exacerbation. Pt feeling better today. Was weaned down to room air. He states his sob has overall improved. No sob at rest and only minimal sob with exertion. Still having wheezing but feels this has improved too. No headache currently. Review of Systems Review of Systems: All systems reviewed & are unremarkable except as noted in HPI and below Exam Narrative: General: No acute distress, non toxic appearing Eyes: PERRL, no scleral icterus HEENT: NCAT, external ears normal, MMM Respiratory: No respiratory distress, scattered wheezes Cardiovascular: RRR, no murmur Abdominal: Soft, non tender, non distended, no rebound or guarding Musculoskeletal: Moves all 4 extremities, no edema Neurological: A/Ox3, speech normal, no facial asymmetry Skin: Warm, dry, no rashes Psychiatric: Normal affect, normal mood Objective Data Vital Signs Vital Signs: Vital Signs - 24 hr 11/18/21 10:15 11/18/21 10:30 11/18/21 10:39 Temperature Pulse Rate 96 95 Respiratory Rate 20 20 Blood Pressure Pulse Oximetry 96 11/18/21 12:00 11/18/21 13:55 11/18/21 14:33 Temperature 98.1 F Pulse Rate 112 H 95 97 Respiratory Rate 18 20 Blood Pressure 136/80 Pulse Oximetry 97 11/18/21 14:41 11/18/21 16:00 11/18/21 16:16 Temperature Pulse Rate 95 93 Respiratory Rate 20 Blood Pressure Pulse Oximetry 94 11/18/21 17:02 11/18/21 17:23 11/18/21 20:00 Temperature Pulse Rate 95 96 98 Respiratory Rate 20 20 16 Blood Pressure Pulse Oximetry 90 95 11/18/21 20:36 11/18/21 20:46 11/18/21 20:59 Temperature 97.5 F L Pulse Rate 90 90 96 Respiratory Rate 20 20 16 Blood Pressure 147/92 H Pulse Oximetry 95 11/19/21 00:00 11/19/21 00:02 11/19/21 00:12 Temperature Pulse Rate 95 90 90 Respiratory Rate 20 20 Blood Pressure Pulse Oximetry 11/19/21 04:00 11/19/21 04:27 11/19/21 04:37 Temperature Pulse Rate 72 90 90 Respiratory Rate 20 20 Blood Pressure Pulse Oximetry 11/19/21 06:00 Temperature 97.8 F Pulse Rate 81 Respiratory Rate 16 Blood Pressure 124/75 Pulse Oximetry 99 Intake/Output Intake/Output: Intake & Output 11/16/21 11/17/21 11/18/21 11/19/21
--- NOTE | 2021-11-19 10:02 | PCRCNOTE ---
HOME O2 EVAL COMPLETE, NO REQUIREMENTS.
[2021-11-19] MEDS: UMECLIDINIUM/VILANTEROL 62.5-25 MCG ELLIPTA 1 PUFF INHALATION (11:22)
[2021-11-19 11:43] LABS: Glucose Point of Care 116 mg/dl (65-105)
[2021-11-19 16:37] LABS: Glucose Point of Care 149 mg/dl (65-105)
[2021-11-19 21:27] LABS: Glucose Point of Care 152 mg/dl (65-105)
--- NOTE | 2021-11-19 23:54 | PCRCNOTE ---
window of time for administration has passed. see next available administration.
[2021-11-20] VITALS (8 sets, daily range): BP systolic 147; BP diastolic 91; PULSE 70–102; RESP 18; TEMP 36.3; O2SAT 97
[2021-11-20] MEDS: ACETAMINOPHEN 325 MG TABLET 650 MG PO (00:20)
[2021-11-20] MEDS: ALBUTEROL SULFATE NEB 2.5 MG/0.5 ML INH 5 MG INHALATION ×2 (04:37→08:15)
[2021-11-20] MEDS: IPRATROPIUM BR 0.02% INH SOLN 0.5 MG/2.5 ML VIAL INHALATION ×2 (04:37→08:15)
[2021-11-20 05:31] LABS: Basophils Percent Auto 0.1 % (0.2-1.2); Eosinophils Percent Auto 0.3 % (0-4.4); Hemoglobin 12.8 g/dL (14.0-18.0); Immature Granulocyte Absolute 0.09 K/mm3 (0.00-0.031); Lymphocytes Absolute Auto 1.53 K/mm3 (0.9-3.2); Lymphocytes Percent Auto 17.5 % (18.3-44.2); Mean Corpuscular HGB Conc 34.6 g/dl (32-36); Mean Corpuscular Hemoglobin 31.8 pg (26-34); Mean Platelet Volume 9.1 fl (7.4-10.4); Monocytes Absolute Auto 0.8 K/mm3 (0.1-0.6); Monocytes Percent Auto 9.6 % (2.6-8.5); Neutrophils Absolute Auto 6.3 K/mm3 (1.3-6.7); Neutrophils Percent Auto 71.5 % (45.5-73.1); Platelet Count Result 260 k/mm3 (150-375); Red Blood Count 4.02 M/mm3 (4.6-6.20); Red Cell Distribution Width 12.6 % (11.5-14.5); White Blood Count 8.8 K/mm3 (4.5-10.0)
[2021-11-20 05:59] LABS: Alanine Aminotransferase 453 U/L (4-50); Albumin Level 4.1 g/dL (3.5-5.1); Alkaline Phosphatase 55 U/L (38-126); Anion Gap 6 mmol/L (8-16); Aspartate Amino Transferase 232 U/L (17-59); Bilirubin,Total 0.1 mg/dL (0.2-1.3); Blood Urea Nitrogen 18 mg/dL (9-20); Calcium 9.3 mg/dL (8.4-10.2); Carbon Dioxide 25 mmol/L (22-30); Chloride 104 mmol/L (98-107); Estimated CRCL calculation 64 ml/min; Estimated Glomerular Filt Rate > 60; Glucose 128 mg/dL (65-110); Potassium 3.2 mmol/L (3.4-5.0); Sodium 135 mmol/L (137-145)
[2021-11-20 07:45] LABS: Glucose Point of Care 87 mg/dl (65-105)
[2021-11-20] MEDS: LOSARTAN POTASSIUM 50 MG TABLET PO (08:06)
[2021-11-20] MEDS: hydroCHLOROthiazide 12.5 MG CAPSULE PO (08:06)
[2021-11-20] MEDS: BENZONATATE 100 MG CAPSULE 200 MG PO (08:06)
[2021-11-20] MEDS: ENOXAPARIN 40 MG/0.4 ML SYRINGE SUB-Q (08:07)
[2021-11-20] MEDS: guaiFENesin 12 HR 600 MG TABCR PO (08:07)
[2021-11-20] MEDS: predniSONE 10 MG TABLET 40 MG PO (08:07)
[2021-11-20] MEDS: UMECLIDINIUM/VILANTEROL 62.5-25 MCG ELLIPTA 1 PUFF INHALATION (08:14)
[2021-11-20 09:07] LABS: Magnesium 2.3 mg/dL (1.6-2.3)
[2021-11-20] MEDS: POTASSIUM CHLORIDE 20 MEQ TABLET 40 MEQ PO (09:08)
[2021-11-20 09:17] LABS: CRP < 0.5 mg/dL (<1.0); Lactate Dehydrogenase 912 U/L (313-618)
--- NOTE | 2021-11-20 10:47 | PM.DS ---
DS: Admitting Diagnosis Discharge Date 11/20/2021 Admitting Diagnosis shortness of breath DS: Discharge Diagnosis Discharge Diagnosis (1) Chronic obstructive pulmonary disease with (acute) exacerbation: Code(s): J44.1 - Chronic obstructive pulmonary disease with (acute) exacerbation Status: Acute Assessment and Plan: Patient is a 61-year-old man with a history of COPD who continues to smoke cigarettes, who presents to the emergency room with increased coughing and short of breath with wheezing. He called EMS to bring him to the emergency room for further evaluation. Via EMS he was placed on 2 L via nasal cannula. Initial vitals showed blood pressure 150/110, tachycardic heart rate 115, afebrile, 99% on 2 L via nasal cannula. Labs showed normal CBC with differential. Negative D-dimer. ABG shows normal pH, low PC O2 consistent with hyperventilation and 94% oxygen saturation on 2 L via nasal cannula. Normal electrolytes, renal function. Slight elevation in ALT at 61. TSH slightly low but normal free T 4 and total T3. Chest x-ray showed no acute cardiopulmonary disease. Patient was admitted to the hospital for COPD exacerbation for breathing treatments, IV Solu-Medrol, hypoxia, for continuous monitoring. -he improved during his hospitalization and Solu-Medrol was changed to prednisone taper and he continued on his DuoNeb treatments every 4 hours which is what he does at home. -went to see him in his room and he had been out walking the halls and feeling well and ready to be discharged. -oxygen evaluation showed he does not need any more oxygen upon discharge. -recommended following up with PCP in 1 week and his wood car builder Dr. Barnhart. -return to ER warnings given. The patient understands agrees the plan all questions answered. (2) HLD (hyperlipidemia): Code(s): E78.5 - Hyperlipidemia, unspecified Status: Acute Assessment and Plan: -on hold due to elevated LFTs (3) Essential hypertension: Code(s): I10 - Essential (primary) hypertension Status: Acute Assessment and Plan: Continue with losartan and hydrochlorothiazide. (4) Abdominal pain: Code(s): R10.9 - Unspecified abdominal pain Status: Acute Assessment and Plan: -with associated diarrhea -CT abd/pelv no acute findings -no leukocytosis or fever -resolved (5) Hyperglycemia: Code(s): R73.9 - Hyperglycemia, unspecified Status: Acute Assessment and Plan: -mildly elevated blood sugar, no hx of DM -A1c 5.4 -sliding scale and hypoglycemic protocol (6) Elevated LFTs: Code(s): R79.89 - Other specified abnormal findings of blood chemistry Status: Acute Assessment and Plan: Stop tylenol, suspect this as part of the problem as he takes this frequently for headaches, sometime more than 4000 mg to 5000 mg daily. -mild elevation noted. Will check CMP in 1 week and follow up with PCP -CT abd/pelv negative -RUQ US showed Normal sonographic study of the gallbladder. -hold statin and stop Tylenol DS: Summary Hospital Course Hospital Course: See above Status at Discharge Cognitive/behavioral status at discharge: Stable, improved. Time Spent with Patient Time attestation: Total time spent providing and/or coordinating discharge services: 42 Time spent: Greater than 30 minutes Exam Narrative: General: 61-year-old man walking the halls. Appears comfortable. In no acute distress. Skin: No jaundice or cyanosis. Good skin turgor. Neck: Full range of motion. Supple. Respiratory: Lungs are clear to auscultation bilaterally. No wheezing, rales or rhonchi. No bony chest wall tenderness. Cardiovascular: The heart has a regular rate and rhythm without murmur. Lower extremities: No lower extremity edema. Distal pulses are easily palpated. No calf tenderness to palpation. Gastrointestinal: The abdomen is soft, nontender and nondisten
[2021-11-20 11:47] LABS: Glucose Point of Care 99 mg/dl (65-105)
== END 2021-11-20 12:02 | disposition home or self-care (01) | DRG 140 ==
LOC: ANHED 14:51 → ANH2MED 18:17
PROVIDERS: Nurse Practitioner; Physician Assistant; Admitting Provider Internal Medicine; Emergency Provider Emergency Medicine; PCP Emergency Medicine; Visit Provider Physician Assistant
DX: J44.1 Chronic obstructive pulmonary disease with (acute) exacerbation (principal); R74.01 Elevation of levels of liver transaminase levels; E78.5 Hyperlipidemia, unspecified; F17.210 Nicotine dependence, cigarettes, uncomplicated; I10 Essential (primary) hypertension; R73.9 Hyperglycemia, unspecified; R10.9 Unspecified abdominal pain; Z79.1 Long term (current) use of non-steroidal anti-inflammatories (NSAID); Z20.822 Contact with and (suspected) exposure to COVID-19
CPT/HCPCS: 36415; 36600; 71045; 74177; 76705; 80048; 80053; 82728; 82805; 82948; 83036; 83605; 83615; 83735; 84439; 84443; 84480; 85025; 85027; 85380; 86140; 93005; 94618; 94640; 96365; 96372; 96374; 96375; 96376; 99285; A9270; C9803; G0378; J0360; J1650; J2930; J3475; J7512; Q9967; U0003; U0005

== ENCOUNTER 2022-08-13 17:30 | Emergency (ER) | payer OTHER, SELFPAY ==
[2022-08-13] VITALS (10 sets, daily range): BP systolic 107–126; BP diastolic 85–101; PULSE 81–96; RESP 14–22; TEMP 37; O2SAT 98–100
--- NOTE | ~2022-08-13 | XR_ITS ---
XR chest 2V DATE: 08/13/2022 18:05 INDICATION: Shortness of breath TECHNIQUE: PA and lateral views COMPARISON: 11/15/2021 portable AP chest at 1455 hours FINDINGS: Normal heart size. No hilar or mediastinal enlargement. No pulmonary infiltrate or consolid ation, pleural effusion or pulmonary vascular congestion or pneumothorax. Diffuse osteopenia. IMPRESSION: No active cardiopulmonary disease Osteopenia Reviewed, dictated and finalized at location A.
--- NOTE | ~2022-08-13 | CT_ITS ---
EXAMINATION: CT abdomen pelvis w con DATE: 08/13/2022 19:39 INDICATION: Abdominal and back cramping for 3 days TECHNIQUE: Computed tomography (CT) of the abdomen and pelvis was performed with 100 CC Omnipaque 350 intravenous contrast. Automated exposure control and iterative reconstruction technique were employe d. Exam dose: 336.14 mGy-cm total exam DLP. COMPARISON: 11/19/2021 Limited abdominal ultrasound 11/08/2021 CT abdomen pelvis FINDINGS: There is minimal focal discoid atelectasis or scarring in the right lower lobe. The lung ba ses are clear of infiltrate or consolidation. Normal heart size. No pericardial or pleural effusion. Coronary artery calcification. The liver, gallbladder, bile ducts, spleen, pancreas, pancreatic duct, and adrenal glands appear norm al. Left pelvic kidney. There are a couple of 5 mm smaller right renal cysts. No urinary tract calculus o r hydroureteronephrosis. The urinary bladder is unremarkable. Mild prostate enlargement. Normal caliber of the abdominal aorta. No intraperitoneal or retroperitoneal or pelvic mass lesion or adenopathy or ascites. Normal appendix. No bowel obstruction, bowel wall thickening, pneumatosis or intraperitoneal free air . No suspicious osteolytic or osteoblastic lesions. IMPRESSION: Left pelvic kidney Small right renal cysts Reviewed, dictated and finalized at Location [facility]. Reviewed, dictated and finalized at location A.
--- NOTE | 2022-08-13 17:40 | ECG_ITS ---
Measurements Intervals [place] Rate: 94 P: 61 MS: 167 QRS: 14 QRSD: 84 T: 8 QT: 339 QTc: 426 Interpretive Statements SINUS RHYTHM WITH FREQUENT ATRIAL PREMATURE COMPLEXES NONSPECIFIC ST-T-WAVE ABNORMALITY ABNORMAL RHYTHM ECG COMPARED TO ECG 11/15/2021 02:44:58 SINUS RHYTHM NOW PRESENT PREMATURE ATRIAL COMPLEX NOW PRESENT Electronically Signed On 08-14-2022 13:00:56 CDT by Prosper Felix M.D.
--- NOTE | 2022-08-13 17:55 | ED.GENADULT ---
HPI - General Adult General Chief complaint: Unspecified <ALLEGRA Wolfe Last Filed: 08/13/22 22:02> Stated complaint: left arm tingling/sob <ALLEGRA Wolfe Last Filed: 08/13/22 22:02> Time Seen by Provider: 08/13/22 17:47 <ALLEGRA Wolfe Last Filed: 08/13/22 22:02> Source: patient <ALLEGRA Wolfe Last Filed: 08/13/22 22:02> Mode of arrival: ambulatory <ALLEGRA Wolfe Last Filed: 08/13/22 22:02> Limitations: no limitations <ALLEGRA Wolfe Last Filed: 08/13/22 22:02> History of Present Illness HPI narrative: This is a 62-year-old male that presents the emergency department for abdominal pain that has been going on for months. Reports intermittent crampy upper abdominal pain. Also reports intermittent sharp left-sided chest pain. Also reports tingling in both of his arms. Reports shortness of breath that is chronic for him due to his COPD. Does report a cough productive of clear sputum. He is still a smoker. Denies fevers, vomiting, or diarrhea <ALLEGRA Wolfe Last Filed: 08/13/22 22:02> Related Data Home medications: Home Medications Medication Instructions Recorded Confirmed pravastatin 20 mg tablet 20 mg PO HS 10/18/19 08/09/22 hydrochlorothiazide 12.5 mg capsule 12.5 mg PO DAILY 06/19/20 08/09/22 losartan 50 mg tablet 50 mg PO DAILY 06/19/20 08/09/22 albuterol sulfate 90 mcg/actuation 2 puff inhalation Q4H PRN 11/15/21 08/09/22 aerosol inhaler Shortness Of Breath <ALLEGRA Wolfe Last Filed: 08/13/22 22:02> Allergies/adverse reactions: Allergies Allergy/AdvReac Type Severity Reaction Status Date / Time No Known Allergies Allergy Verified 08/13/22 17:45 <ALLEGRA Wolfe Last Filed: 08/13/22 22:02> Review of Systems Review of Systems: CONSTITUTIONAL: Denies fever CARDIOVASCULAR: Reports chest pain. Denies edema. RESPIRATORY: Reports cough and dyspnea. GASTROINTESTINAL: Reports abdominal pain. Denies nausea, vomiting, or diarrhea. GENITOURINARY: Denies dysuria <Eliza Reyes PA-C - Last Filed: 08/13/22 22:02> All systems reviewed & are unremarkable except as noted in HPI and below <Eliza Reyes PA-C - Last Filed: 08/13/22 22:02> [facility] Past Medical History Medical History: Medical History Chronic bronchitis COPD (chronic obstructive pulmonary disease) Coughing up blood Essential hypertension HLD (hyperlipidemia) Tobacco abuse <Eliza Reyes PA-C - Last Filed: 08/13/22 22:02> Surgical History Surgical History: Surgical History H/O oral surgery H/O shoulder surgery <Eliza Reyes PA-C - Last Filed: 08/13/22 22:02> Family History Family History: Family History Sibling Lung cancer Sibling Hypertension Mother Diabetes mellitus Father Hypertension Heart disease <Eliza Reyes PA-C - Last Filed: 08/13/22 22:02> Social History Social History: Social History Social History: Patient lives at home with his two younger brother. He has multiple surrogate MDM, but would like his sister Fe to be her primary MDM. He sees Dr. Puga as his PCP and Dr. Barnhart for his pulmonary issues. He states he smoked about 0.5 pack per day for roughly 30 years. The patient works for [employer]. Code status full code. Smoking packs per day: 0.5 Smoking cigarettes per day: 10.0 Years smoked: 30 Smoking pack-years: 15.00 Smoking status: Current every day smoker Tobacco type: cigarettes Alcohol intake: current Drinks per week: 3 Substance use: never Substance use type: does not use Other substance usage details: drinks vodka and beer Gender identity (if verbalized by the patient):
[2022-08-13 18:08] LABS: Basophils Percent Auto 0.5 % (0.2-1.2); Eosinophils Absolute Auto 0.1 K/mm3 (0-0.3); Eosinophils Percent Auto 1.6 % (0-4.4); Hematocrit 41.1 % (42.0-52.0); Hemoglobin 14.4 g/dL (14.0-18.0); Immature Granulocyte Absolute 0.01 K/mm3 (0.00-0.031); Immature Granulocyte Percent A 0.3 % (0-0.5); Lymphocytes Absolute Auto 0.98 K/mm3 (0.9-3.2); Lymphocytes Percent Auto 26.6 % (18.3-44.2); Mean Corpuscular Hemoglobin 31.4 pg (26-34); Mean Corpuscular Volume 89.7 fl (80-100); Monocytes Absolute Auto 0.7 K/mm3 (0.1-0.6); Monocytes Percent Auto 18.8 % (2.6-8.5); Neutrophils Absolute Auto 1.9 K/mm3 (1.3-6.7); Neutrophils Percent Auto 52.2 % (45.5-73.1); Platelet Count Result 241 k/mm3 (150-375); Red Blood Count 4.58 M/mm3 (4.6-6.20); Red Cell Distribution Width 12.7 % (11.5-14.5); White Blood Count 3.7 K/mm3 (4.5-10.0)
[2022-08-13 18:18] LABS: Alanine Aminotransferase 58 U/L (6-50); Albumin Level 4.8 g/dL (3.5-5.1); Alkaline Phosphatase 68 U/L (38-126); Anion Gap 18 mmol/L (8-16); Aspartate Amino Transferase 59 U/L (17-59); Bilirubin,Total 0.5 mg/dL (0.2-1.3); Blood Urea Nitrogen 13 mg/dL (9-20); Carbon Dioxide 22 mmol/L (22-30); Chloride 95 mmol/L (98-107); Estimated CRCL calculation 44 ml/min; Estimated Glomerular Filt Rate > 60; Glucose 165 mg/dL (65-110); Lipase 100 U/L (23-300); Potassium 3.9 mmol/L (3.4-5.0); Sodium 135 mmol/L (137-145)
[2022-08-13 18:24] LABS: Prothrombin Time 12.4 Seconds (11.1-14.7)
[2022-08-13 18:25] LABS: Partial Thromboplastin Time 24.5 SECONDS (22.3-36.8)
[2022-08-13 18:33] LABS: Troponin I < 0.012 ng/mL (0.000-0.034)
[2022-08-13] MEDS: SODIUM CHLORIDE 0.9% IV 500 ML 999 ML IV CONT (18:34)
[2022-08-13 18:57] LABS: Influenza A QL RT-PCR Positive (Negative); Influenza B QL RT-PCR Negative (Negative); SARS-CoV-2 RNA PCR Negative
[2022-08-13 19:00] LABS: D Dimer 0.38 ug/mL (<0.48)
[2022-08-13 20:25] LABS: Hemoglobin A1C 5.7 % (<5.7)
[2022-08-13 21:36] LABS: Troponin I < 0.012 ng/mL (0.000-0.034)
== END 2022-08-13 22:00 | disposition home or self-care (01) ==
PROVIDERS: Emergency Medicine; Physician Assistant; Emergency Provider Emergency Medicine; PCP Emergency Medicine
DX: J10.1 Influenza due to other identified influenza virus with other respiratory manifestations (principal); Z20.822 Contact with and (suspected) exposure to COVID-19; I10 Essential (primary) hypertension; E78.5 Hyperlipidemia, unspecified; F17.210 Nicotine dependence, cigarettes, uncomplicated; M85.88 Other specified disorders of bone density and structure, other site; N28.1 Cyst of kidney, acquired
CPT/HCPCS: 36415; 71046; 74177; 80053; 83036; 83690; 84484; 85025; 85380; 85610; 85730; 87502; 93005; 96361; 96365; 99284; J0131; J7040; Q9967; U0003; U0005

== ENCOUNTER 2022-12-30 12:58 | Observation (INO) | payer OTHER, SELFPAY ==
[2022-12-30] VITALS (26 sets, daily range): BP systolic 110–144; BP diastolic 64–90; PULSE 97–117; RESP 15–23; TEMP 36.4–37.7; O2SAT 97–100; BMI 26.9; BMI 26.3
--- NOTE | ~2022-12-30 | XR_ITS ---
Clinical Indication: Shortness of PA and lateral views of the chest: Comparison: 08/13/2022 Findings: The lungs are clear, without evidence of focal consolidation or pleural effusion. Cardiome diastinal silhouette is within normal limits. Bones and soft tissues are unremarkable. Impression: Normal chest. Reviewed, dictated and finalized at [facility]. Impression: Normal chest.
--- NOTE | ~2022-12-30 | NM_ITS ---
EXAMINATION: NM mona stress w perfusion DATE: 12/31/2022 11:01 INDICATION: Chest pain TECHNIQUE: Rest images were obtained following intravenous administration of 10.4 mCi Tc99m tetrofosm in (Myoview). The patient was infused intravenously with Lexiscan (Regadenoson). Then, 33.6 mCi Tc99m tetrofosmin (Myoview) was administered intravenously, and stress images were obtained. Data was tonya nstructed into short axis and horizontal and vertical long axis SPECT images. Gated SPECT images were also obtained. COMPARISON: None. FINDINGS: There is no definite reversible or fixed perfusion abnormality to suggest ischemia or infar ction. There is normal left ventricular chamber size, wall motion and ejection fraction. Left ventr icular ejection fraction measures >70%. IMPRESSION: 1. Normal myocardial perfusion at rest and during stress. 2. Left ventricular ejection fraction measuring >70%. Reviewed, dictated and finalized at location L.
--- NOTE | 2022-12-30 13:02 | ECG_ITS ---
Measurements Intervals [place] Rate: 120 P: 69 WI: 157 QRS: 34 QRSD: 83 T: 53 QT: 312 QTc: 441 Interpretive Statements SINUS TACHYCARDIA DELAYED PRECORDIAL R/S TRANSITION BORDERLINE ST-T WAVE ABNORMALITY- INF/LAT LEADS BASELINE ARTIFACT- I, II, III, AVR, AVL, AVF ABNORMAL ECG COMPARED TO ECG 08/13/2022 17:44:55 SINUS TACHYCARDIA NOW PRESENT Electronically Signed On 12-30-2022 13:17:59 CDT by Michael Fontaine D.O.
[2022-12-30 13:21] LABS: Basophils Percent Auto 0.2 % (0.2-1.2); Eosinophils Percent Auto 0.4 % (0-4.4); Hemoglobin 14.1 g/dL (14.0-18.0); Immature Granulocyte Absolute 0.03 K/mm3 (0.00-0.031); Immature Granulocyte Percent A 0.4 % (0-0.5); Lymphocytes Absolute Auto 1.37 K/mm3 (0.9-3.2); Lymphocytes Percent Auto 16.1 % (18.3-44.2); Mean Corpuscular HGB Conc 34.4 g/dl (32-36); Mean Corpuscular Hemoglobin 31.5 pg (26-34); Mean Corpuscular Volume 91.7 fl (80-100); Mean Platelet Volume 8.6 fl (7.4-10.4); Monocytes Absolute Auto 0.6 K/mm3 (0.1-0.6); Monocytes Percent Auto 6.9 % (2.6-8.5); Neutrophils Absolute Auto 6.5 K/mm3 (1.3-6.7); Platelet Count Result 335 k/mm3 (150-375); Red Blood Count 4.47 M/mm3 (4.6-6.20); Red Cell Distribution Width 12.9 % (11.5-14.5); White Blood Count 8.5 K/mm3 (4.5-10.0)
[2022-12-30 13:35] LABS: Alanine Aminotransferase 89 U/L (6-50); Albumin Level 5.1 g/dL (3.5-5.1); Alkaline Phosphatase 88 U/L (38-126); Anion Gap 16 mmol/L (8-16); Aspartate Amino Transferase 75 U/L (17-59); Blood Urea Nitrogen 16 mg/dL (9-20); Calcium 8.9 mg/dL (8.4-10.2); Carbon Dioxide 18 mmol/L (22-30); Chloride 96 mmol/L (98-107); Estimated CRCL calculation 62 ml/min; Estimated Glomerular Filt Rate > 60; Glucose 65 mg/dL (65-110); Potassium 4.9 mmol/L (3.4-5.0); Sodium 130 mmol/L (137-145)
--- NOTE | 2022-12-30 15:24 | ED.SOB ---
HPI - SOB/Dyspnea General Chief Complaint: Shortness of Breath/Dyspnea <Macrina Chance PA-C - Last Filed: 12/30/22 17:55> Stated Complaint: sob <Macrina Chance PA-C - Last Filed: 12/30/22 17:55> Time Seen by Provider: 12/30/22 14:43 <Macrina Chance PA-C - Last Filed: 12/30/22 17:55> Source: patient <Macrina Chance PA-C - Last Filed: 12/30/22 17:55> Mode of arrival: EMS <ALLEGRA [place] Last Filed: 12/30/22 17:55> Limitations: no limitations <Macrina Chance PA-C - Last Filed: 12/30/22 17:55> History of Present Illness HPI Narrative: Patient is a 62 y/o male, with a PMHx of COPD still smoking 0.5ppd, who presents to the ED via EMS with report of SOB. Patient reports he was walking to the bus stop today when he became short of breath. He also developed pain in his midsternal chest, described as a tightness and heaviness at that time. EMS was then called. EMS gave the patient a breathing treatment en route to the ED, though patient still felt SOB by the time of my evaluation. Patient has been using his inhaler and nebulizers as prescribed but denied relief today. He otherwise states he has felt fine the last few days, aside from a recent cough. Denies recent fevers, congestion, rhinorrhea, abdominal pain, nausea, vomiting, lower extremity pain or swelling. Patient sees Dr. Barnhart with pulmonology. <Macrina Chance PA-C - Last Filed: 12/30/22 17:55> Related Data Home Medications: Home Medications Medication Instructions Recorded Confirmed pravastatin 20 mg tablet 20 mg PO HS 10/18/19 08/09/22 hydrochlorothiazide 12.5 mg capsule 12.5 mg PO DAILY 06/19/20 08/09/22 losartan 50 mg tablet 50 mg PO DAILY 06/19/20 08/09/22 albuterol sulfate 90 mcg/actuation 2 puff inhalation Q4H PRN 11/15/21 08/09/22 aerosol inhaler Shortness Of Breath <Macrina Chance PA-C - Last Filed: 12/30/22 17:55> Allergies/Adverse Reactions: Allergies Allergy/AdvReac Type Severity Reaction Status Date / Time No Known Allergies Allergy Verified 08/13/22 17:45 <Macrina Chance PA-C - Last Filed: 12/30/22 17:55> Review of Systems Review of Systems: CONSTITUTIONAL: Denies fever, chills, or sweats. ENT: Denies rhinorrhea, congestion, sore throat. CARDIOVASCULAR: See HPI. RESPIRATORY: See HPI. GASTROINTESTINAL: Denies abdominal pain, nausea, vomiting. MUSCULOSKELETAL: Denies back pain, joint pain, or myalgia. NEUROLOGIC: Denies headache, numbness, or weakness. <Macrina Chance PA-C - Last Filed: 12/30/22 17:55> All systems reviewed & are unremarkable except as noted in HPI and below <Macrina Chance PA-C - Last Filed: 12/30/22 17:55> [facility] Past Medical History Medical History: Medical History (Updated 12/30/22 @ 18:11 by Charity Jensen NP) Chronic bronchitis Cocaine use COPD (chronic obstructive pulmonary disease) Coughing up blood Essential hypertension HLD (hyperlipidemia) Tobacco abuse <Macrina Chance PA-C - Last Filed: 12/30/22 17:55> Surgical History Surgical History: Surgical History H/O oral surgery H/O shoulder surgery <Macrina Chance PA-C - Last Filed: 12/30/22 17:55> Family History Family History: Family History Sibling Lung cancer Sibling Hypertension Mother Diabetes mellitus Father Hypertension Heart disease <Macrina Chance PA-C - Last Filed: 12/30/22 17:55> Social History Social History: Social History Social History: Patient lives at home with his two younger brother. He has multiple surrogate MDM, but would like his sister Fe to be her primary MDM. He sees Dr. Puga as his PCP and Dr. Barnhart for his pulmonary issues. He states he smoked about 0.5 pa
[2022-12-30 15:30] LABS: NT Pro B Type Natriuretic Pept 95 pg/mL (19.9-100); Troponin I < 0.012 ng/mL (0.000-0.034)
[2022-12-30] MEDS: IPRATROPIUM BR 0.02% INH SOLN 0.5 MG/2.5 ML VIAL INHALATION (15:39)
[2022-12-30 16:08] LABS: Influenza A QL RT-PCR Negative (Negative); Influenza B QL RT-PCR Negative (Negative); SARS-CoV-2 RNA PCR Negative
[2022-12-30] MEDS: SODIUM CHLORIDE 0.9% IV 1,000 ML 999 ML IV CONT (16:10)
[2022-12-30] MEDS: NITROGLYCERIN SL 0.4 MG TABLET SUBLINGUAL (16:15)
--- NOTE | 2022-12-30 16:22 | PC.NURSE ---
Patient was given one sublingual nitro 0.4mg and 5 minutes later the patient stated his chest pain was 2/10 and his blood pressure was 139/77
[2022-12-30] MEDS: methylPREDNISolone SOD SUCC 125 MG VIAL IV PUSH (16:56)
[2022-12-30 17:15] LABS: Appearance Urine Clear (Clear); Bilirubin Urine Negative (Negative); Blood Urine Negative (Negative); Color Urine Yellow (Yellow); Glucose Urine UA Negative (Negative); Ketones Urine 3+ mg/dL (Negative); Leukocyte Esterase Ur Negative LEU/UL (Negative); Nitrate Urine Negative (Negative); Protein Urine Negative (Negative); Specific Grav Ur 1.012 (1.001-1.035); Urobilinogen Urine 0.2 mg/dL (<2.0)
[2022-12-30 17:27] LABS: Amphetamine Screen Urine Negative (Negative); Barbiturate Screen Urine Negative (Negative); Benzodiazepines Screen Urine Negative (Negative); Cannabinoid Screen Urine Negative (Negative); Cocaine Screen Urine Positive (Negative); Methadone Screen Urine Negative (Negative); Opiate Screen Urine Negative (Negative); Phencyclidine Screen Urine Negative (Negative)
[2022-12-30 17:31] LABS: Add Urine Microscopic? NO
[2022-12-30 17:32] LABS: Troponin I < 0.012 ng/mL (0.000-0.034)
--- NOTE | 2022-12-30 18:11 | PM.IMHP ---
H&P: HPI History of Present Illness Date/Time: 12/30/22 18:11 Chief Complaint: Shortness of breath Narrative: This is a 62-year-old female patient who has a past medical history of COPD and tobacco use. The patient came to the emergency room for complaints of shortness of breath. The patient also complained of midsternal chest pain. The patient was walking to the bus stop when this occurred. EMS was activated. The patient was given a breathing treatment EN route. The patient has been using his inhaler and nebulizers without any relief. He denies any fever chills or any cough. No complaints which congestion or lower extremity edema. The patient follows with Dr. Barnhart for pulmonology. D-dimer 0.50 sodium 130. Troponins nonreactive x3. The patient was positive for cocaine. The patient stated that he is ready to go to rehab. Chest x-ray shows normal chest. The patient was given normal saline, nitro, Xopenex Atrovent Solu-Medrol and Tylenol. The patient is being admitted to observation status the date of service is 12/30/2022 Review of Systems Review of Systems: All systems reviewed & are unremarkable except as noted in HPI and below Constitutional: Constitutional: Reports as per HPI and Reports no additional constitutional complaints Eyes: Eyes: Reports as per HPI and Reports no additional eye complaints ENT: Reports system reviewed and no additional complaints, except as documented and Reports Normal hearing present Cardiovascular: Cardiovascular: Reports no additional cardiovascular complaints Respiratory: Respiratory: Reports no additional respiratory complaints and Reports no additional respiratory complaints Gastrointestinal: Gastrointestinal: Reports as per HPI and Reports no additional gastrointestinal complaints Musculoskeletal: Musculoskeletal: Reports no additional musculoskeletal complaints Integumentary/Breasts: Skin/Breast: Reports system reviewed and no additional complaints, except as docu and Reports as per HPI Neurologic: Reports system reviewed and no additional complaints, except as documented, Reports as per HPI and Reports Normal hearing present Psychiatric: Psychiatric: Reports no additional psychiatric complaints and Reports as per HPI Endocrine: Endocrine: Reports no additional endocrine complaints Hematologic/Lymphatic: Hematologic/Lymphatic: Reports no additional hematologic/lymphatic complaints Allergic/Immunologic: Allergic/Immunologic: Reports no additional allergic/immunologic complaints PMFSH Past Medical History Medical History Chronic bronchitis Cocaine use COPD (chronic obstructive pulmonary disease) Coughing up blood Essential hypertension HLD (hyperlipidemia) Tobacco abuse Surgical History Surgical History H/O oral surgery H/O shoulder surgery Family History Family History Sibling Lung cancer Sibling Hypertension Mother Diabetes mellitus Father Hypertension Heart disease Social History Social History Social History: Patient lives at home with his two younger brother. He has multiple surrogate MDM, but would like his sister Fe to be her primary MDM. He sees Dr. Puga as his PCP and Dr. Barnhart for his pulmonary issues. He states he smoked about 0.5 pack per day for roughly 30 years. The patient works for [employer]. Code status full code. Smoking packs per day: 0.5 Smoking cigarettes per day: 10.0 Years smoked: 30 Smoking pack-years: 15.00 Smoking status: Current every day smoker Tobacco type: cigarettes Second hand tobacco smoke exposure: Yes Alcohol intake: current Drinks per week: 2 Substance use: current Substance use type: marijuana and crack/cocaine Other substance usage details: drinks vodka and beer Last
--- NOTE | 2022-12-30 21:06 | ADMGEN ---
This patient, Denia Baker Jr., was admitted to IMU Room 206-01 at 2100. Patient/family oriented to hospital policies and general routines including ID bracelet, bed and alarms, visiting hours, pain management, procedures, bathroom and other care routines, personal items, smoking policy, room service/diet, and visiting hours. Information on how to activate the Rapid Response Team has been discussed. Patient/Family are encouraged to report perceived risks to care and to ask questions if they do not understand what they are told or what they should do.
[2022-12-30 22:01] LABS: Troponin I < 0.012 ng/mL (0.000-0.034)
[2022-12-30] MEDS: ACETAMINOPHEN 500 MG TABLET 1000 MG PO (23:37)
[2022-12-31] VITALS (14 sets, daily range): BP systolic 140–163; BP diastolic 86–94; PULSE 68–105; RESP 12–18; TEMP 36.3–36.4; O2SAT 95–99
--- NOTE | 2022-12-31 | ECHO_ITS ---
Patient Info Name: Denia Baker Age: 62 years : 1960 Gender: Male Ht: 63 in Wt: 148 lbs BSA: 1.74 m2 HR: 78 bpm BP: 157 / 93 mmHg Heart Rhythm: Sinus Rhythm Technical Quality: Fair Exam Date: 12/31/2022 6:57 AM Exam Location: [facility] Pulmonary Patient Status: Outpatient Admit Date: 12/30/2022 Staff Ordering Physician: Michael Fontaine DO Court Registry Officer: Doris Mccrary RDCS Attending Provider: Gilbert Melo MD Referring Physician: Zhen SAUL; Exam Type: CA echo doppler color flow Study Info Indications - SOB Complete two-dimensional, color flow and Doppler transthoracic echocardiogram is performed. Summary 1. Complete two-dimensional, color flow and Doppler transthoracic echocardiogram is performed. 2. Left ventricular chamber dimension is normal. 3. Left ventricular systolic function is normal, estimated at 60-65%. 4. There is mildly increased left ventricular wall thickness. 5. The left ventricular diastolic function is grade I diastolic dysfunction. 6. E/e' 6 is not elevated. 7. There is trace tricuspid valve regurgitation. 8. No pulmonary hypertension, estimated pulmonary arterial systolic pressure is 27 mmHg. Left Ventricle E/e' 6 is not elevated. Left ventricular chamber dimension is normal. Left ventricular systolic function is normal, estimated at 60-65%. There is mildly increased left ventricular wall thickness. The left ventricular diastolic function is grade I diastolic dysfunction. Right Ventricle Right ventricular systolic function is normal and with normal TAPSE 2.1 cm. Right ventricular chamber dimension is normal. Left Atria Left atrial chamber dimension is normal. Right Atria Right atrial chamber dimension is normal. Aortic Valve The aortic valve is trileaflet. There is no aortic valve stenosis. There is no aortic valve regurgitation. Pulmonic Valve There is no pulmonic regurgitation. Mitral Valve There is no mitral valve stenosis. There is no mitral valve regurgitation. Tricuspid Valve There is trace tricuspid valve regurgitation. No pulmonary hypertension, estimated pulmonary arterial systolic pressure is 27 mmHg. Pericardium/Pleural There is no pericardial effusion. Inferior Vena Cava Normal inferior vena cava with >50% collapse upon inspiration consistent with normal right atrial pressure, 5 mmHg. Aorta The aortic root size at the sinus of Valsalva is normal. Left Ventricular Outflow Tract Name Value Normal LVOT 2D LVOT Diameter 2.0 cm LVOT Doppler LVOT Peak Gradient 4 mmHg LVOT Mean Gradient 2 mmHg LVOT VTI 17 cm LVOT VTI/AV VTI Ratio 0.9 LVOT Stroke Volume 56 ml LVOT CO 4.4 l/min LVOT CI 2.5 l/min/m2 Pulmonic Valve Name Value Normal
--- NOTE | 2022-12-31 00:35 | EST_ITS ---
Patient Info Name: Denia Baker Age: 62 years : 1960 Gender: Male Ht: 63 in Wt: 148 lbs BSA: 1.74 m2 HR: 80 bpm BP: 176 / 111 mmHg Heart Rhythm: Sinus Rhythm Exam Date: 12/31/2022 10:11 AM Exam Location: [facility] Stress Patient Status: Inpatient Admit Date: 12/30/2022 Staff Ordering Physician: Michael Fontaine DO Attending Provider: Gilbert Melo MD Exercise Technologist: Makeda Leung CT Exercise Physician: Michael Fontaine DO Exam Type: CA stress mona w NM Study Info Indications R07.9 - Chest pain, unspecified A regadenoson stress test was performed. Summary 1. 1. Negative lexiscan stress test for ischemic ST changes by ECG criteria. 2. 2. Baseline hypertension. 3. 3. Nuclear scan to follow and will be reported separately. Please correlate with it. 4. 4. Patient informed of the above results. Protocol: Lexiscan Stress ECG Details Stage: REST Duration (min): 3 min : 22 sec HR (bpm): 75 SBP (mmHg): 176 DBP (mmHg): 111 Stage: REST Duration (min): 6 min : 54 sec HR (bpm): 85 SBP (mmHg): 176 DBP (mmHg): 111 Stage: STAGE 1 Duration (min): 0 min : 59 sec HR (bpm): 116 SBP (mmHg): 178 DBP (mmHg): 106 Stage: RECOVERY Duration (min): 1 min : 0 sec HR (bpm): 117 SBP (mmHg): 178 DBP (mmHg): 106 Stage: RECOVERY Duration (min): 2 min : 0 sec HR (bpm): 114 SBP (mmHg): 178 DBP (mmHg): 106 Stage: RECOVERY Duration (min): 3 min : 0 sec HR (bpm): 109 SBP (mmHg): 175 DBP (mmHg): 112 Stage: RECOVERY Duration (min): 3 min : 8 sec HR (bpm): 109 SBP (mmHg): 175 DBP (mmHg): 112 Rest HR: 85 bpm Peak HR: 125 bpm Rest Sys BP: 176 mmHg Peak Sys BP: 178 mmHg Max Pred HR: 160 bpm % Max Pred HR: 78 % Target HR: 136 bpm Max RPP: 22,250 bpm*mmHg Termination Reason: Completed protocol Cardiac Symptoms: Shortness of breath Total Time: 1 min : 0 sec Rest Sellers BP: 111 mmHg Peak Sellers BP: 106 mmHg Total Dose: 0.4 mg Resting ECG Sinus rhythm. Stress ECG No ST changes. Arrhythmias None. Report Signatures
[2022-12-31 05:42] LABS: Hematocrit 38.1 % (42.0-52.0); Hemoglobin 13.2 g/dL (14.0-18.0); Immature Granulocyte Absolute 0.04 K/mm3 (0.00-0.031); Immature Granulocyte Percent A 0.8 % (0-0.5); Lymphocytes Absolute Auto 0.58 K/mm3 (0.9-3.2); Lymphocytes Percent Auto 12.2 % (18.3-44.2); Mean Corpuscular HGB Conc 34.6 g/dl (32-36); Mean Corpuscular Hemoglobin 31.2 pg (26-34); Mean Corpuscular Volume 90.1 fl (80-100); Monocytes Absolute Auto 0.1 K/mm3 (0.1-0.6); Monocytes Percent Auto 1.7 % (2.6-8.5); Neutrophils Absolute Auto 4.1 K/mm3 (1.3-6.7); Neutrophils Percent Auto 85.3 % (45.5-73.1); Platelet Count Result 285 k/mm3 (150-375); Red Blood Count 4.23 M/mm3 (4.6-6.20); Red Cell Distribution Width 13.2 % (11.5-14.5); White Blood Count 4.8 K/mm3 (4.5-10.0)
[2022-12-31 05:54] LABS: Alanine Aminotransferase 73 U/L (6-50); Albumin Level 4.8 g/dL (3.5-5.1); Alkaline Phosphatase 84 U/L (38-126); Anion Gap 7 mmol/L (8-16); Aspartate Amino Transferase 59 U/L (17-59); Bilirubin,Total 0.5 mg/dL (0.2-1.3); Blood Urea Nitrogen 14 mg/dL (9-20); Calcium 9.2 mg/dL (8.4-10.2); Carbon Dioxide 27 mmol/L (22-30); Chloride 105 mmol/L (98-107); Estimated CRCL calculation 69 ml/min; Estimated Glomerular Filt Rate > 60; Glucose 166 mg/dL (65-110); Potassium 4.2 mmol/L (3.4-5.0); Sodium 139 mmol/L (137-145)
[2022-12-31] MEDS: methylPREDNISolone SOD SUCC 125 MG VIAL 60 MG IV PUSH ×2 (06:15→14:39)
[2022-12-31] MEDS: IPRATROPIUM BR 0.02% INH SOLN 0.5 MG/2.5 ML VIAL INHALATION ×2 (06:27→14:18)
[2022-12-31] MEDS: LEVALBUTEROL NEB 1.25 MG/3 ML 0.63 MG INHALATION ×2 (06:28→14:18)
--- NOTE | 2022-12-31 08:22 | PM.CNCAR ---
Assessment and Plan Assessment and plan (1) Chest pain: Qualifiers: Chest pain type: unspecified Qualified Code(s): R07.9 - Chest pain, unspecified Code(s): R07.9 - Chest pain, unspecified Status: Acute Assessment and Plan: PR r/o by serial troponin and EKG. This could related to COPD exac or cocaine use causing coronary vasospasms. Obtain lexiscan myoview stress test. Obtain echo. (2) Chronic obstructive pulmonary disease with (acute) exacerbation: Code(s): J44.1 - Chronic obstructive pulmonary disease with (acute) exacerbation Status: Acute Assessment and Plan: Nebs and steroids as per hospitalist. (3) HLD (hyperlipidemia): Code(s): E78.5 - Hyperlipidemia, unspecified Status: Acute Assessment and Plan: On Pravastatin. (4) Essential hypertension: Code(s): I10 - Essential (primary) hypertension Status: Acute Assessment and Plan: Stable. (5) Tobacco abuse: Code(s): Z72.0 - Tobacco use Status: Acute Assessment and Plan: Counseled regarding smoking cessation. (6) Cocaine use: Code(s): F14.90 - Cocaine use, unspecified, uncomplicated Status: Acute Assessment and Plan: Counseled regarding abstaining from cocaine use. History of Present Illness History of Present Illness Consult date/time: 12/31/22 08:22 Reason For Visit: COPD Exacerbation,CP,Heart Score =5 Narrative: 62 yr old man presented to ER with sob and cp. He has a history of COPD, smoking cigarettes, smoking cocaine, dyslipidemia and hypertension. Reports that yesterday he was walking to bus stop when had noted more sob and mid chest pain. He then called EMS and brought to ER. He breathing is improved after each nebulizer treatment. He no longer has chest pains. Admits to smoking cocaine and trying to quit. He smokes 1/2 ppd. He is limited at walking 1/2 block due to [place]. Denies orthopnea, PND, edema, dizziness, palpitations. Review of Systems Review of Systems: All systems reviewed & are unremarkable except as noted in HPI and below Constitutional: Constitutional: Reports as per HPI, Denies chills and Denies fever(s) Cardiovascular: Cardiovascular: Reports as per HPI, Reports chest pain, Denies irregular heart rhythm, Denies leg edema and Denies lightheadedness Respiratory: Respiratory: Reports as per HPI, Reports dyspnea and Reports dyspnea on exertion Gastrointestinal: Gastrointestinal: Reports as per HPI and Denies abdominal pain Genitourinary: Genitourinary: Reports as per HPI and Denies dysuria Musculoskeletal: Musculoskeletal: Reports as per HPI Neurologic: Reports as per HPI, Denies dizziness and Denies syncope [facility] Past Medical History Medical History Chronic bronchitis Cocaine use COPD (chronic obstructive pulmonary disease) Coughing up blood Essential hypertension HLD (hyperlipidemia) Tobacco abuse Surgical History Surgical History H/O oral surgery H/O shoulder surgery Family History Family History Sibling Lung cancer Sibling Hypertension Mother Diabetes mellitus Father Hypertension Heart disease Social History Social History Social History: Patient lives at home with his two younger brother. He has multiple surrogate MDM, but would like his sister Fe to be her primary MDM. He sees Dr. Puga as his PCP and Dr. Barnhart for his pulmonary issues. He states he smoked about 0.5 pack per day for roughly 30 years. The patient works for [employer]. Code status full code. Smoking packs per day: 0.5 Smoking cigarettes per day: 10.0 Years smoked: 30 Smoking pack-years: 15.00 Smoking status: Current every day smoker Tobacco type: cigarettes Second hand tobacco sm
[2022-12-31] MEDS: hydroCHLOROthiazide 12.5 MG CAPSULE PO (08:49)
[2022-12-31] MEDS: LOSARTAN POTASSIUM 50 MG TABLET PO (08:49)
--- NOTE | 2022-12-31 09:36 | PC.NURSE ---
Pt to nuclear medicine for mona scan via wheelchair
[2022-12-31 10:48] LABS: Free T4 Free Thyroxine Reflex 0.83 ng/dL (0.78-2.19)
--- NOTE | 2022-12-31 11:03 | PC.NURSE ---
Pt returns from Lexiscan via wheelchair with no issues noted
[2022-12-31 11:34] LABS: Total Triiodothyronine (T3) 0.89 NG/ML (0.97-1.69)
--- NOTE | 2022-12-31 17:49 | PM.DS ---
DS: Admitting Diagnosis Discharge Date 12/31/2022 Admitting Diagnosis Shortness of breath DS: Discharge Diagnosis Discharge Diagnosis (1) COPD (chronic obstructive pulmonary disease): Code(s): J44.9 - Chronic obstructive pulmonary disease, unspecified Status: Acute Assessment and Plan: Continue with nebulizer treatments Continue with Solu-Medrol (2) Chest pain: Qualifiers: Chest pain type: unspecified Qualified Code(s): R07.9 - Chest pain, unspecified Code(s): R07.9 - Chest pain, unspecified Status: Acute Assessment and Plan: -the patient admitted to cocaine use corporate travel coordinator has been consulted the patient stated that he would like to go to rehab. Cardiac enzymes have been nonreactive. An echo has been ordered and a stress test Cardiology has been consulted (3) HLD (hyperlipidemia): Code(s): E78.5 - Hyperlipidemia, unspecified Status: Acute Assessment and Plan: Continue with pravastatin (4) Essential hypertension: Code(s): I10 - Essential (primary) hypertension Status: Acute Assessment and Plan: Continue with losartan -continue with hydrochlorothiazide DS: Summary Hospital Course Hospital Course: 62-year-old male with past medical history significant for COPD, tobacco dependence, polysubstance these is presenting with shortness of breath and chest pain following the use of cocaine. Troponins were negative x3. Echo was ordered and showed an EF of 60-65% with grade 1 diastolic dysfunction no pulmonary hypertension or significant valvular abnormalities noted. Stress test was ordered and was negative for ischemic episode. All symptoms resolved and he was discharged in stable condition. Time Spent with Patient Time attestation: Total time spent providing and/or coordinating discharge services: Exam Narrative: General: No acute distress, alert and oriented per baseline HEENT: Atraumatic, normocephalic, mucous membranes moist CV: Regular rate and rhythm, S1, S2 Lungs: Clear to auscultation bilaterally, no rales or crackles noted, no wheezes, good air entry Abdomen: Soft, nontender, nondistended Extremities: Normal to inspection Skin: No rashes noted, no lesions or wounds seen Psych: Euthymic, normal affect DS: Data Data Completed and Pending Labs on day of discharge: Labs from last 24 hours 12/31/22 12/31/22 12/31/22 04:49 04:49 04:49 WBC RBC Hgb Hct MCV MCH MCHC RDW Plt Count MPV Immature Gran % (Auto) Neut % (Auto) Lymph % (Auto) [place] % (Auto) Eos % (Auto) Baso % (Auto) Lymph # (Auto) [place] # (Auto) Eos # (Auto) Baso # (Auto) Abs Immat Gran (auto) Absolute Neuts (auto) Absolute Nucleated RBC Nucleated RBC % Sodium Potassium Chloride Carbon Dioxide Anion Gap BUN Creatinine Estim Creat Clear Calc Estimated GFR Glucose Lactic Acid Calcium Magnesium Total Bilirubin AST ALT Alkaline Phosphatase Troponin I Total Protein Albumin TSH (Reflex) 0.030 L Free T4 0.83 Total T3 0.89 L 12/31/22 12/31/22 12/31/22 04:49 04:49 04:49 WBC 4.8 RBC 4.23 L Hgb 13.2 L Hct 38.1 L MCV 90.1 MCH 31.2 MCHC 34.6 RDW 13.2 Plt Count 285 MPV 9.0 Immature Gran % (Auto) 0.8 H Neut % (Auto) 85.3 H Lymph % (Auto) 12.2 L [place] % (Auto) 1.7 L Eos % (Auto) 0.0 Baso % (Auto) 0.0 L Lymph # (Auto) 0.58 L [place] # (Auto) 0.1 Eos # (Auto) 0.0 Baso # (Auto) 0.0 Abs Immat Gran (auto) 0.04 H Absolute Neuts (auto) 4.1 Absolute Nucleated RBC 0.0 Nucleated RBC % 0.0 Sodium 139 Potassium 4.2 Chloride 105 Carbon Dioxide 27 Anion Gap 7 L BUN 14 Creatinine 0.80 Estim Creat Clear Calc 69 Estimated GFR > 60 Glucose 166 H Lactic Acid 2.0 Calcium 9.2 Magnesium
== END 2022-12-31 18:55 | disposition home or self-care (01) ==
LOC: ANHED 17:55 → ANHIMU 21:25
PROVIDERS: Emergency Medicine; Nurse Practitioner; Admitting Provider Chiropractor; Emergency Provider Physician Assistant; PCP Emergency Medicine; Visit Provider Student in an Organized Health Care Education/Training Program
DX: J44.1 Chronic obstructive pulmonary disease with (acute) exacerbation (principal); R06.09 Other forms of dyspnea; I11.9 Hypertensive heart disease without heart failure; R00.0 Tachycardia, unspecified; E78.2 Mixed hyperlipidemia; R07.9 Chest pain, unspecified; Z20.822 Contact with and (suspected) exposure to COVID-19; R94.31 Abnormal electrocardiogram [ECG] [EKG]; F17.210 Nicotine dependence, cigarettes, uncomplicated; F14.90 Cocaine use, unspecified, uncomplicated; F10.90 Alcohol use, unspecified, uncomplicated; Z79.899 Other long term (current) drug therapy; Z79.51 Long term (current) use of inhaled steroids; Z82.49 Family history of ischemic heart disease and other diseases of the circulatory system
CPT/HCPCS: 36415; 71046; 78452; 80053; 80307; 81003; 83605; 83735; 83880; 84439; 84443; 84480; 84484; 85025; 85380; 87636; 93005; 93017; 93306; 94640; 96361; 96374; 96375; 96376; 99285; A9270; A9502; G0378; G0379; J2785; J2930; J7030

== ENCOUNTER 2023-02-07 00:52 | Inpatient (IN) | payer OTHER, SELFPAY ==
[2023-02-07] VITALS (29 sets, daily range): BP systolic 119–180; BP diastolic 78–121; PULSE 90–117; RESP 10–32; TEMP 35.7–36.9; O2SAT 92–100; BMI 25.4
--- NOTE | ~2023-02-07 | XR_ITS ---
XR chest 1V portable 02/07/2023 02:45 Indication: COPD. Shortness of breath. Procedure: AP portable chest Comparison: Comparison to multiple prior studies sequentially, with oldest reviewed study dated 09/20. Findings: Heart size normal. No focal air space disease, pulmonary edema, pleural effusion or suspect ed pneumothorax. No acute osseous abnormality. Impression: 1: No acute cardiopulmonary disease. Reviewed, dictated and finalized at location A. Impression: 1: No acute cardiopulmonary disease.
--- NOTE | 2023-02-07 00:52 | ECG_ITS ---
Measurements Intervals [place] Rate: 100 P: 72 IA: 165 QRS: 19 QRSD: 82 T: 64 QT: 332 QTc: 430 Interpretive Statements SINUS TACHYCARDIA LOW QRS VOLTAGE NONSPECIFIC T-WAVE ABNORMALITY ABNORMAL ECG COMPARED TO ECG 02/07/2023 01:02:48 NO SIGNIFICANT CHANGES Electronically Signed On 02-07-2023 7:23:34 CDT by Gilbert Ruvalcaba M.D.
[2023-02-07] MEDS: LEVALBUTEROL NEB 1.25 MG/3 ML 2.5 MG INHALATION (00:56)
[2023-02-07] MEDS: IPRATROPIUM BR 0.02% INH SOLN 0.5 MG/2.5 ML VIAL INHALATION ×2 (00:56→08:22)
--- NOTE | 2023-02-07 00:57 | ED.SOB ---
HPI - SOB/Dyspnea General Chief Complaint: Shortness of Breath/Dyspnea Stated Complaint: DIFFICULTY IN BREATHING Time Seen by Provider: 02/07/23 00:56 History of Present Illness HPI Narrative: Patient is a 62-year-old male with a history of COPD presenting with shortness of breath. Patient states that for the last several days he has been increasingly short of breath and wheezy. States he has had a productive cough. Reports some chest tightness. States he has been using his inhaler with minimal relief. No fevers or chills, headache, numbness or weakness, lightheadedness, abdominal pain, nausea or vomiting, diarrhea, leg swelling, dysuria. Related Data Home Medications Medication Instructions Recorded Confirmed hydrochlorothiazide 12.5 mg capsule 12.5 mg PO DAILY 06/19/20 02/07/23 losartan 50 mg tablet 50 mg PO DAILY 06/19/20 02/07/23 albuterol sulfate 90 mcg/actuation 2 puff inhalation Q4H PRN 11/15/21 02/07/23 aerosol inhaler Shortness Of Breath pravastatin 20 mg tablet 20 mg PO HS 12/30/22 02/07/23 fluticasone propionate 110 1 puff inhalation Q12H 02/07/23 02/07/23 mcg/actuation HFA aerosol inhaler (Flovent HFA) glycopyrrolate 9 mcg-formoterol 1 puff inhalation Q12H 02/07/23 02/07/23 4.8 mcg HFA aerosol inhaler (Bevespi Aerosphere) Allergies Allergy/AdvReac Type Severity Reaction Status Date / Time No Known Allergies Allergy Verified 02/07/23 02:59 Review of Systems Review of Systems: All systems reviewed & are unremarkable except as noted in HPI and below PMFSH Past Medical History Medical History (Updated 02/10/23 @ 17:31 by Theresa Mcginnis MD) Chronic bronchitis Cocaine use COPD (chronic obstructive pulmonary disease) Coughing up blood Essential hypertension HLD (hyperlipidemia) Tobacco abuse Surgical History Surgical History H/O oral surgery H/O shoulder surgery Family History Family History Sibling Lung cancer Sibling Hypertension Mother Diabetes mellitus Father Hypertension Heart disease Social History Social History (Updated 02/07/23 @ 07:36 by Shruthi Gruber, DO) Social History: Patient lives with his girlfriend and or he splits his time living with his 2 brothers .He sees Dr. Puga as his PCP and Dr. Barnhart for his pulmonary issues. He states he smoked about 1-1.5 pack per day for roughly 30 years. The patient works for [employer]. Patient does have a history of crack cocaine use. Code status: Full code. Surrogate decision maker: He has multiple surrogate MDM, but would like his sister Fe to be her primary MDM. Smoking packs per day: 1.5 Smoking cigarettes per day: 30.0 Years smoked: 30 Smoking pack-years: 45.00 Smoking status: Current every day smoker Tobacco type: cigarettes Second hand tobacco smoke exposure: Yes Alcohol intake: current Drinks per week: 4 Substance use: current Substance use type: crack/cocaine Other substance usage details: 3 WEEKS WAS LAST USE Last use: 12/29/22 Lack of Transportation: No Lack of Food: Never True Current Housing: I Have Housing Concerned About Future Housing: No Difficulty Paying Gas/Electric Bills: No Difficulty Paying for Meds: No Currently Unemployed: No Education: High School Diploma/GED Difficulty w/ Childcare or Family Care: No Occupation/Education: occupation Gender identity (if verbalized by the patient): Male Sexual Orientation (if Verbalized by the Patient): Straight or Heterosexual Spiritual care concerns: No Exam Narrative: GENERAL: Diaphoretic, moderate respiratory distress HEAD: Normocephalic, atraumatic. EYES: PERRLA and EOMI. ENT: Nares clear, no rhinorrhea or epistaxis. Mucous membranes moist. NECK: Supple. CHEST: Moderate respiratory distress, very tight bilaterally with diffuse wheezing saturating mid 90s HEART: Re
[2023-02-07] MEDS: SODIUM CHLORIDE 0.9% IV 1,000 ML 999 ML IV CONT (01:10)
[2023-02-07] MEDS: methylPREDNISolone SOD SUCC 125 MG VIAL IV PUSH (01:10)
[2023-02-07 02:44] LABS: Sodium 142 mmol/L (137-145)
[2023-02-07 02:45] LABS: Alanine Aminotransferase 42 U/L (6-50); Anion Gap 9 mmol/L (8-16); Aspartate Amino Transferase 35 U/L (17-59); Bilirubin,Total 0.4 mg/dL (0.2-1.3); Blood Urea Nitrogen 10 mg/dL (9-20); Calcium 9.6 mg/dL (8.4-10.2); Carbon Dioxide 28 mmol/L (22-30); Chloride 105 mmol/L (98-107); Estimated Glomerular Filt Rate > 60; Glucose 114 mg/dL (65-110)
[2023-02-07 02:46] LABS: Alkaline Phosphatase 71 U/L (38-126); Total Protein 7.8 g/dL (6.3-8.2); Troponin I < 0.012 ng/mL (0.000-0.034)
[2023-02-07 02:57] LABS: Influenza A QL RT-PCR Negative (Negative); Influenza B QL RT-PCR Negative (Negative); RSV RNA, RT-PCR Negative (Negative); SARS-CoV-2 RNA PCR Negative (Negative)
[2023-02-07 03:00] LABS: Basophils Absolute Auto 0.1 K/mm3 (0.0-0.1); Basophils Percent Auto 0.5 % (0.2-1.2); Eosinophils Percent Auto 18.9 % (0-4.4); Hematocrit 43.1 % (42.0-52.0); Immature Granulocyte Absolute 0.03 K/mm3 (0.00-0.031); Immature Granulocyte Percent A 0.3 % (0-0.5); Lymphocytes Absolute Auto 4.59 K/mm3 (0.9-3.2); Lymphocytes Percent Auto 44.1 % (18.3-44.2); Mean Corpuscular HGB Conc 34.8 g/dl (32-36); Mean Corpuscular Hemoglobin 32.2 pg (26-34); Mean Corpuscular Volume 92.5 fl (80-100); Mean Platelet Volume 9.2 fl (7.4-10.4); Monocytes Absolute Auto 0.9 K/mm3 (0.1-0.6); Monocytes Percent Auto 8.5 % (2.6-8.5); Neutrophils Absolute Auto 2.9 K/mm3 (1.3-6.7); Neutrophils Percent Auto 27.7 % (45.5-73.1); Platelet Count Result 360 k/mm3 (150-375); Red Blood Count 4.66 M/mm3 (4.6-6.20); Red Cell Distribution Width 12.5 % (11.5-14.5); White Blood Count 10.4 K/mm3 (4.5-10.0)
[2023-02-07] MEDS: LEVALBUTEROL NEB 1.25 MG/3 ML INHALATION ×5 (03:30→20:25)
[2023-02-07] MEDS: AZITHROMYCIN 250 MG TABLET 500 MG PO (03:38)
--- NOTE | 2023-02-07 04:28 | ADMGEN ---
This patient, Denia Baker Jr., was admitted to Medical Room 243-01. Patient/family oriented to hospital policies and general routines including ID bracelet, bed and alarms, visiting hours, pain management, procedures, bathroom and other care routines, personal items, smoking policy, room service/diet, and visiting hours. Information on how to activate the Rapid Response Team has been discussed. Patient/Family are encouraged to report perceived risks to care and to ask questions if they do not understand what they are told or what they should do.
--- NOTE | 2023-02-07 06:06 | PM.IMHP ---
H&P: HPI History of Present Illness Date/Time: 02/07/23 06:06 Chief Complaint: Shortness of breath Narrative: 62-year-old male with a past medical history of chronic tobacco abuse, COPD, hypertension and dyslipidemia who presented to the ER via EMS due to shortness of breath. The patient has been short of breath for a couple of days but had acutely worsened this evening. He was having labored respirations and oxygen saturations of 90% on room air. He reports that his breathing was so bad that he has not been able to smoke for the last 3 or 4 days. He reports that he has had a cough productive of thick white sputum a. His nieces and nephews as well as his girlfriend have been ill with similar symptoms. He was received an albuterol treatment in route to the hospital. In the ER, he was sitting in tripod position and diaphoretic. He had chest discomfort associated with his shortness of breath. He reports that chest discomfort is in his lateral ribs and is also substernal. It is worse with deep breathing and coughing. The pain is achy in nature. He has also been having some cramping of the muscles in his abdomen due to his frequent coughing. He had been using his inhalers at home with minimal relief in his symptoms. He received a hour long nebulizer treatment in the ER as well as 1 dose of IV Solu-Medrol 125 mg with significant improvement in his symptoms. However, he was still tachypneic and had significant wheezing after the 1st neb. He subsequently received and 2nd nebulizer treat with Xopenex and Atrovent. He also received 1 dose of p.o. azithromycin. His chest x-ray demonstrated no acute cardiopulmonary process. He was taking Mucinex and Robitussin at home without relief. Review of Systems Review of Systems: 12 systems were reviewed with pertinent positives and negatives per HPI. Except as documented in the HPI, all other systems were reviewed and are negative. [facility] Past Medical History Medical History (Updated 02/07/23 @ 07:38 by Shruthi Gruber DO) Chronic bronchitis Cocaine use COPD (chronic obstructive pulmonary disease) Coughing up blood Essential hypertension HLD (hyperlipidemia) Tobacco abuse Surgical History Surgical History H/O oral surgery H/O shoulder surgery Family History Family History Sibling Lung cancer Sibling Hypertension Mother Diabetes mellitus Father Hypertension Heart disease Social History Social History (Updated 02/07/23 @ 07:36 by Shruthi Gruber DO) Social History: Patient lives with his girlfriend and or he splits his time living with his 2 brothers .He sees Dr. Puga as his PCP and Dr. Barnhart for his pulmonary issues. He states he smoked about 1-1.5 pack per day for roughly 30 years. The patient works for [employer]. Patient does have a history of crack cocaine use. Code status: Full code. Surrogate decision maker: He has multiple surrogate MDM, but would like his sister Fe to be her primary MDM. Smoking packs per day: 1.5 Smoking cigarettes per day: 30.0 Years smoked: 30 Smoking pack-years: 45.00 Smoking status: Current every day smoker Tobacco type: cigarettes Second hand tobacco smoke exposure: Yes Alcohol intake: current Drinks per week: 4 Substance use: current Substance use type: crack/cocaine Other substance usage details: 3 WEEKS WAS LAST USE Last use: 12/29/22 Lack of Transportation: No Lack of Food: Never True Current Housing: I Have Housing Concerned About Future Housing: No Difficulty Paying Gas/Electric Bills: No Difficulty Paying for Meds: No Currently Unemployed: No Education: High School Diploma/GED Difficulty w/ Childcare or Family Care: No Occupation/Education: occupation Gender identity (if verbalized by the patient): Male Sexual Orientation (if Verbalized by the Patient): Str
[2023-02-07] MEDS: methylPREDNISolone SOD SUCC 125 MG VIAL 60 MG IV PUSH ×3 (06:17→18:10)
[2023-02-07] MEDS: FLUTICASONE PROP 110 MCG INHALER 12 GM (*SP) 1 PUFF INHALATION ×2 (08:22→20:25)
[2023-02-07] MEDS: guaiFENesin 12 HR 600 MG TABCR 1200 MG PO ×2 (09:17→20:55)
[2023-02-07] MEDS: LOSARTAN POTASSIUM 50 MG TABLET PO (09:17)
[2023-02-07] MEDS: hydroCHLOROthiazide 25 MG TABLET PO (09:17)
--- NOTE | 2023-02-07 10:45 | PM.IMPN ---
Progress Note: A&P Assessment and Plan (1) COPD with exacerbation: Code(s): J44.1 - Chronic obstructive pulmonary disease with (acute) exacerbation Status: Acute Assessment and Plan: Presented with labored breathing Continues to smoke Chest xray shows no acute cardiopulmonary abnormalities Neb treatments continued Continue home Anoro Ellipta, Flovent Continue methylprednisone, titrate down and change to PO prednisone when able Sputum culture Smoking cessation education given SPO2 stable supplemental oxygen as indicated guaifenesin 1200mg PO Q12H for sputum control Restart azithromycin PO (2) Continuous tobacco abuse: Code(s): Z72.0 - Tobacco use Status: Acute Assessment and Plan: Smoking cessation education given Continue to reinforce Nicotine patch and gum PRN (3) Hypertension: Code(s): I10 - Essential (primary) hypertension Status: Acute Assessment and Plan: BP is 144/86 Continue home losartan, HCTZ trend BP adjust therapy as indicated Time Spent With Patient Time: 48 minutes Time with patient: Greater than 35 minutes Subjective Date/time seen: 02/07/23 104 Interval history: 02/07/23 104 Currently patient is lying in bed. He denies any current nausea, vomiting, diarrhea constipation. He did state that he is still having some shortness of breath with a cough. He is producing a clear sputum and thick. He stated that his wheezes are slightly better but he does have some pretty pronounced wheezes per auscultation. He is also complaining of chest pain which is most likely from the cough. He also admits taking his medications as they are prescribed. Currently he is stable per labs and vital signs. 02/07/23? 06:06 62-year-old male with a past medical history of chronic tobacco abuse, COPD, hypertension and dyslipidemia who presented to the ER via EMS due to shortness of breath.? The patient has been short of breath for a couple of days but had acutely worsened this evening.? He was having labored respirations and oxygen saturations of 90% on room air.? He reports that his breathing was so bad that he has not been able to smoke for the last 3 or 4 days.? He reports that he has had a cough productive of thick white sputum a.? His nieces and nephews as well as his girlfriend have been ill with similar symptoms.? He was received an albuterol treatment in route to the hospital.? In the ER, he was sitting in tripod position and diaphoretic.? He had chest discomfort associated with his shortness of breath.? He reports that chest discomfort is in his lateral ribs and is also substernal.? It is worse with deep breathing and coughing.? The pain is achy in nature.? He has also been having some cramping of the muscles in his abdomen due to his frequent coughing.? He had been using his inhalers at home with minimal relief in his symptoms.? He received a hour long nebulizer treatment in the ER as well as 1 dose of IV Solu-Medrol 125 mg with significant improvement in his symptoms.? However, he was still tachypneic and had significant wheezing after the 1st neb.? He subsequently received and 2nd nebulizer treat with Xopenex and Atrovent.? He also received 1 dose of p.o. azithromycin.? His chest x-ray demonstrated no acute cardiopulmonary process.? He was taking Mucinex and Robitussin at home without relief. Review of Systems Review of Systems: All systems reviewed & are unremarkable except as noted in HPI and below Exam Narrative: General: well-nourished, well-appearing 62-year-old male, laying in bed, comfortable, NARD Neuro: awake, alert and oriented x4, speech clear, no focal neuro deficits noted HEENMT: normocephalic, atraumatic, EOMI, sclerae anicteric, moist oral mucosa Respiratory: Clear to auscultation bilaterally without crackles, rhonchi or wheezes, nonlabored breathing Cardio: regular rat
[2023-02-07] MEDS: ACETAMINOPHEN 500 MG TABLET 1000 MG PO (17:57)
[2023-02-07] MEDS: PRAVASTATIN SODIUM 20 MG TABLET PO (20:54)
[2023-02-07] MEDS: HYDROcodone/acetaminophen (*CRX) 5-325 MG TABLET 1 TAB PO (20:54)
[2023-02-08] VITALS (20 sets, daily range): BP systolic 116–129; BP diastolic 72–76; PULSE 88–112; RESP 14–20; TEMP 36.3–36.8; O2SAT 94–98
[2023-02-08] MEDS: LEVALBUTEROL NEB 1.25 MG/3 ML INHALATION ×6 (00:15→23:55)
[2023-02-08] MEDS: methylPREDNISolone SOD SUCC 125 MG VIAL 60 MG IV PUSH ×5 (00:41→23:45)
[2023-02-08 05:31] LABS: Basophils Percent Auto 0.2 % (0.2-1.2); Hematocrit 38.7 % (42.0-52.0); Hemoglobin 13.4 g/dL (14.0-18.0); Immature Granulocyte Absolute 0.12 K/mm3 (0.00-0.031); Immature Granulocyte Percent A 0.7 % (0-0.5); Lymphocytes Absolute Auto 0.96 K/mm3 (0.9-3.2); Lymphocytes Percent Auto 5.3 % (18.3-44.2); Mean Corpuscular HGB Conc 34.6 g/dl (32-36); Mean Corpuscular Hemoglobin 32.1 pg (26-34); Mean Corpuscular Volume 92.6 fl (80-100); Mean Platelet Volume 8.8 fl (7.4-10.4); Monocytes Absolute Auto 0.4 K/mm3 (0.1-0.6); Monocytes Percent Auto 2.2 % (2.6-8.5); Neutrophils Absolute Auto 16.7 K/mm3 (1.3-6.7); Neutrophils Percent Auto 91.6 % (45.5-73.1); Platelet Count Result 312 k/mm3 (150-375); Red Blood Count 4.18 M/mm3 (4.6-6.20); Red Cell Distribution Width 12.9 % (11.5-14.5); White Blood Count 18.3 K/mm3 (4.5-10.0)
[2023-02-08 05:42] LABS: Alanine Aminotransferase 40 U/L (6-50); Albumin Level 4.6 g/dL (3.5-5.1); Alkaline Phosphatase 61 U/L (38-126); Anion Gap 9 mmol/L (8-16); Aspartate Amino Transferase 32 U/L (17-59); Bilirubin,Total 0.4 mg/dL (0.2-1.3); Blood Urea Nitrogen 15 mg/dL (9-20); Calcium 9.6 mg/dL (8.4-10.2); Carbon Dioxide 24 mmol/L (22-30); Chloride 105 mmol/L (98-107); Estimated CRCL calculation 69 ml/min; Estimated Glomerular Filt Rate > 60; Glucose 121 mg/dL (65-110); Magnesium 2.2 mg/dL (1.6-2.3); Sodium 138 mmol/L (137-145)
[2023-02-08] MEDS: HYDROcodone/acetaminophen (*CRX) 5-325 MG TABLET 1 TAB PO ×2 (05:49→17:30)
--- NOTE | 2023-02-08 06:08 | PCRCNOTE ---
Window of time for administration has passed. See next scheduled administration.
[2023-02-08] MEDS: FLUTICASONE PROP 110 MCG INHALER 12 GM (*SP) 1 PUFF INHALATION ×2 (08:15→20:02)
--- NOTE | 2023-02-08 08:45 | PM.IMPN ---
Progress Note: A&P Assessment and Plan (1) COPD with exacerbation: Code(s): J44.1 - Chronic obstructive pulmonary disease with (acute) exacerbation Status: Acute Assessment and Plan: Presented with labored breathing Continues to smoke Chest xray shows no acute cardiopulmonary abnormalities Neb treatments continued Continue home Anoro Ellipta, Flovent Continue methylprednisone, titrate down and change to PO prednisone when able Sputum culture pending Smoking cessation education given SPO2 stable supplemental oxygen as indicated guaifenesin 1200mg PO Q12H for sputum control Restart azithromycin PO Add Tessalon Perles to help with cough (2) Continuous tobacco abuse: Code(s): Z72.0 - Tobacco use Status: Acute Assessment and Plan: Smoking cessation education given Continue to reinforce Nicotine patch and gum PRN (3) Hypertension: Code(s): I10 - Essential (primary) hypertension Status: Acute Assessment and Plan: BP is 119/74 Continue home losartan, HCTZ trend BP adjust therapy as indicated (4) Tachycardia: Code(s): R00.0 - Tachycardia, unspecified Status: Acute Assessment and Plan: Heart rate does and in the 130s after breathing treatments however does not sustain Patient remains asymptomatic at this time Continue Trend heart rate No abnormal arrhythmias or any other ectopy noted on tele monitor Stable (5) Leukocytosis: Code(s): D72.829 - Elevated white blood cell count, unspecified Status: Acute Assessment and Plan: WBCs elevated 18.3 Most likely from steroid use Convert IV steroids to p.o. prednisone for now Continue trend Blood cultures no growth today Sputum culture pending Time Spent With Patient Time: 48 minutes Time with patient: Greater than 35 minutes Subjective Date/time seen: 02/08/23 0845 Interval history: 02/08/23 0845 Patient stated he is doing okay today. He does still feel very short of breath. He also stated that he is still having a lot of mucus buildup and coughing. He stated that his chest pain is mostly related to the cough. He denies any nausea, vomiting, diarrhea or constipation. White blood cell count is slightly elevated at 18.3 most likely related to steroid use. Heart rate does get elevated into the 130s after breathing treatments have returned back to normal level there after. 02/07/23 1045 Currently patient is lying in bed. He denies any current nausea, vomiting, diarrhea constipation. He did state that he is still having some shortness of breath with a cough. He is producing a clear sputum and thick. He stated that his wheezes are slightly better but he does have some pretty pronounced wheezes per auscultation. He is also complaining of chest pain which is most likely from the cough. He also admits taking his medications as they are prescribed. Currently he is stable per labs and vital signs. 02/07/23? 06:06 62-year-old male with a past medical history of chronic tobacco abuse, COPD, hypertension and dyslipidemia who presented to the ER via EMS due to shortness of breath.? The patient has been short of breath for a couple of days but had acutely worsened this evening.? He was having labored respirations and oxygen saturations of 90% on room air.? He reports that his breathing was so bad that he has not been able to smoke for the last 3 or 4 days.? He reports that he has had a cough productive of thick white sputum a.? His nieces and nephews as well as his girlfriend have been ill with similar symptoms.? He was received an albuterol treatment in route to the hospital.? In the ER, he was sitting in tripod position and diaphoretic.? He had chest discomfort associated with his shortness of breath.? He reports that chest discomfort is in his lateral ribs and is also
--- NOTE | 2023-02-08 08:45 | P.PNIM_ITS ---
Progress Note: A&P Assessment and Plan (1) COPD with exacerbation: Code(s): J44.1 - Chronic obstructive pulmonary disease with (acute) exacerbation Status: Acute Assessment and Plan: * Presented with labored breathing * Continues to smoke * Chest xray shows no acute cardiopulmonary abnormalities * Neb treatments continued * Continue home Anoro Ellipta, Flovent * Continue methylprednisone, titrate down and change to PO prednisone when able * Sputum culture pending * Smoking cessation education given * SPO2 stable * supplemental oxygen as indicated * guaifenesin 1200mg PO Q12H for sputum control * Restart azithromycin PO * Add Tessalon Perles to help with cough (2) Continuous tobacco abuse: Code(s): Z72.0 - Tobacco use Status: Acute Assessment and Plan: * Smoking cessation education given * Continue to reinforce * Nicotine patch and gum PRN (3) Hypertension: Code(s): I10 - Essential (primary) hypertension Status: Acute Assessment and Plan: * BP is 119/74 * Continue home losartan, HCTZ * trend BP * adjust therapy as indicated (4) Tachycardia: Code(s): R00.0 - Tachycardia, unspecified Status: Acute Assessment and Plan: * Heart rate does and in the 130s after breathing treatments however does not sustain * Patient remains asymptomatic at this time * Continue Trend heart rate * No abnormal arrhythmias or any other ectopy noted on tele monitor * Stable (5) Leukocytosis: Code(s): D72.829 - Elevated white blood cell count, unspecified Status: Acute Assessment and Plan: * WBCs elevated 18.3 * Most likely from steroid use * Convert IV steroids to p.o. prednisone for now * Continue trend * Blood cultures no growth today * Sputum culture pending Time Spent With Patient Time: 48 minutes Time with patient: Greater than 35 minutes Subjective Date/time seen: 02/08/23 0845 Interval history: 02/08/2345 Patient stated he is doing okay today. He does still feel very short of breath. He also stated that he is still having a lot of mucus buildup and coughing. He stated that his chest pain is mostly related to the cough. He denies any nausea, vomiting, diarrhea or constipation. White blood cell count is slightly elevated at 18.3 most likely related to steroid use. Heart rate does get elevated into the 130s after breathing treatments have returned back to normal level there after. 02/07/23 1045 Currently patient is lying in bed. He denies any current nausea, vomiting, diarrhea constipation. He did state that he is still having some shortness of breath with a cough. He is producing a clear sputum and thick. He stated that his wheezes are slightly better but he does have some pretty pronounced wheezes per auscultation. He is also complaining of chest pain which is most likely from the cough. He also admits taking his medications as they are prescribed. Currently he is stable per labs and vital signs. 02/07/23? 06:06 62-year-old male with a past medical history of chronic tobacco abuse, COPD, hypertension and dyslipidemia who presented to the ER via EMS due to shortness of breath.? The patient has been short of breath for a couple of days but had acutely worsened this evening.? He was having labored
[2023-02-08] MEDS: guaiFENesin 12 HR 600 MG TABCR 1200 MG PO ×2 (09:22→20:14)
[2023-02-08] MEDS: AZITHROMYCIN 250 MG TABLET PO (09:24)
[2023-02-08] MEDS: hydroCHLOROthiazide 25 MG TABLET PO (09:24)
[2023-02-08] MEDS: LOSARTAN POTASSIUM 50 MG TABLET PO (09:24)
[2023-02-08] MEDS: NICOTINE (*PBKC) 4 MG GUM PO (09:32)
[2023-02-08] MEDS: BENZONATATE 100 MG CAPSULE 200 MG PO ×3 (09:36→17:18)
[2023-02-08 09:40] LABS: CRP < 0.5 mg/dL (<1.0)
[2023-02-08] MEDS: ACETAMINOPHEN 500 MG TABLET 1000 MG PO (20:14)
[2023-02-08] MEDS: PRAVASTATIN SODIUM 20 MG TABLET PO (20:15)
[2023-02-09] VITALS (15 sets, daily range): BP systolic 120–126; BP diastolic 79–97; PULSE 80–98; RESP 17–95; TEMP 36.2–36.6; O2SAT 96–97
[2023-02-09] MEDS: LEVALBUTEROL NEB 1.25 MG/3 ML INHALATION ×6 (04:20→20:33)
[2023-02-09 05:24] LABS: Basophils Percent Auto 0.1 % (0.2-1.2); Hematocrit 36.8 % (42.0-52.0); Hemoglobin 12.6 g/dL (14.0-18.0); Immature Granulocyte Absolute 0.31 K/mm3 (0.00-0.031); Immature Granulocyte Percent A 1.7 % (0-0.5); Mean Corpuscular HGB Conc 34.2 g/dl (32-36); Mean Corpuscular Volume 93.4 fl (80-100); Mean Platelet Volume 9.3 fl (7.4-10.4); Monocytes Absolute Auto 0.3 K/mm3 (0.1-0.6); Monocytes Percent Auto 1.9 % (2.6-8.5); Neutrophils Absolute Auto 16.3 K/mm3 (1.3-6.7); Neutrophils Percent Auto 91.3 % (45.5-73.1); Platelet Count Result 304 k/mm3 (150-375); Red Blood Count 3.94 M/mm3 (4.6-6.20); White Blood Count 17.8 K/mm3 (4.5-10.0)
[2023-02-09 05:30] LABS: Alanine Aminotransferase 70 U/L (6-50); Albumin Level 4.3 g/dL (3.5-5.1); Alkaline Phosphatase 43 U/L (38-126); Anion Gap 8 mmol/L (8-16); Aspartate Amino Transferase 55 U/L (17-59); Bilirubin,Total 0.5 mg/dL (0.2-1.3); Blood Urea Nitrogen 17 mg/dL (9-20); Calcium 9.3 mg/dL (8.4-10.2); Carbon Dioxide 25 mmol/L (22-30); Chloride 104 mmol/L (98-107); Estimated CRCL calculation 78 ml/min; Estimated Glomerular Filt Rate > 60; Glucose 117 mg/dL (65-110); Magnesium 2.4 mg/dL (1.6-2.3); Sodium 137 mmol/L (137-145)
[2023-02-09] MEDS: methylPREDNISolone SOD SUCC 125 MG VIAL 60 MG IV PUSH ×2 (06:20→12:30)
[2023-02-09] MEDS: FLUTICASONE PROP 110 MCG INHALER 12 GM (*SP) 1 PUFF INHALATION ×2 (07:23→20:33)
--- NOTE | 2023-02-09 10:45 | P.PNIM_ITS ---
Progress Note: A&P Assessment and Plan (1) COPD with exacerbation: Code(s): J44.1 - Chronic obstructive pulmonary disease with (acute) exacerbation Status: Acute Assessment and Plan: * Presented with labored breathing * Continues to smoke * Chest xray shows no acute cardiopulmonary abnormalities * Neb treatments continued * Continue home Anoro Ellipta, Flovent * Continue methylprednisone, titrate down and change to PO prednisone when able * Sputum culture growth of normal galen * Smoking cessation education given * SPO2 stable * supplemental oxygen as indicated * guaifenesin 1200mg PO Q12H for sputum control * Continue azithromycin PO, start ceftriaxone IV * Add Tessalon Perles to help with cough (2) Continuous tobacco abuse: Code(s): Z72.0 - Tobacco use Status: Acute Assessment and Plan: * Smoking cessation education given * Continue to reinforce * Nicotine patch and gum PRN (3) Hypertension: Code(s): I10 - Essential (primary) hypertension Status: Acute Assessment and Plan: * BP is 121/79 * Continue home losartan, HCTZ * trend BP * adjust therapy as indicated (4) Tachycardia: Code(s): R00.0 - Tachycardia, unspecified Status: Acute Assessment and Plan: * Heart rate does and in the 130s after breathing treatments however does not sustain * Patient remains asymptomatic at this time * Continue Trend heart rate * No abnormal arrhythmias or any other ectopy noted on tele monitor * Stable * Resolved (5) Leukocytosis: Code(s): D72.829 - Elevated white blood cell count, unspecified Status: Acute Assessment and Plan: * WBCs elevated 18.3, still relatively high at 17.8 * Most likely from steroid use * Change steroid to 40mg IV Q12H * Continue trend * Blood cultures no growth today * Sputum culture normal oral galen (6) Headache: Code(s): R51.9 - Headache, unspecified Status: Acute Assessment and Plan: * Been continuous for days * give a headache cocktail, Toradol, bag of fluids, Imitrex, reglan * Continue tylenol and norco for further relief if needed * Trend pain Time Spent With Patient Time: 48 minutes Time with patient: Greater than 35 minutes Subjective Date/time seen: 02/09/23 1045 Interval history: 02/09/23 1045 patient stated that he is having really bad headache today. Patient does sound very rhonchus and wheezy today. He did state that the Tessalon Perles have been helping his cough. WBCs are elevated still today at 17.8. With the wheezes will continue on the IV steroids. He does still have reproducible chest pain most likely related to the cough. 02/08/23 8851 Patient stated he is doing okay today. He does still feel very short of breath. He also stated that he is still having a lot of mucus buildup and coughing. He stated that his chest pain is mostly related to the cough. He denies any nausea , vomiting, diarrhea or constipation. White blood cell count is slightly elevated at 18.3 most likely related to steroid use. Heart rate does get elevated into the 130s after breathing treatments have returned back to normal level there after. 02/07/23 1552 Currently patient is lying
--- NOTE | 2023-02-09 10:45 | PM.IMPN ---
Progress Note: A&P Assessment and Plan (1) COPD with exacerbation: Code(s): J44.1 - Chronic obstructive pulmonary disease with (acute) exacerbation Status: Acute Assessment and Plan: Presented with labored breathing Continues to smoke Chest xray shows no acute cardiopulmonary abnormalities Neb treatments continued Continue home Anoro Ellipta, Flovent Continue methylprednisone, titrate down and change to PO prednisone when able Sputum culture growth of normal galen Smoking cessation education given SPO2 stable supplemental oxygen as indicated guaifenesin 1200mg PO Q12H for sputum control Continue azithromycin PO, start ceftriaxone IV Add Tessalon Perles to help with cough (2) Continuous tobacco abuse: Code(s): Z72.0 - Tobacco use Status: Acute Assessment and Plan: Smoking cessation education given Continue to reinforce Nicotine patch and gum PRN (3) Hypertension: Code(s): I10 - Essential (primary) hypertension Status: Acute Assessment and Plan: BP is 121/79 Continue home losartan, HCTZ trend BP adjust therapy as indicated (4) Tachycardia: Code(s): R00.0 - Tachycardia, unspecified Status: Acute Assessment and Plan: Heart rate does and in the 130s after breathing treatments however does not sustain Patient remains asymptomatic at this time Continue Trend heart rate No abnormal arrhythmias or any other ectopy noted on tele monitor Stable Resolved (5) Leukocytosis: Code(s): D72.829 - Elevated white blood cell count, unspecified Status: Acute Assessment and Plan: WBCs elevated 18.3, still relatively high at 17.8 Most likely from steroid use Change steroid to 40mg IV Q12H Continue trend Blood cultures no growth today Sputum culture normal oral galen (6) Headache: Code(s): R51.9 - Headache, unspecified Status: Acute Assessment and Plan: Been continuous for days give a headache cocktail, Toradol, bag of fluids, Imitrex, reglan Continue tylenol and norco for further relief if needed Trend pain Time Spent With Patient Time: 48 minutes Time with patient: Greater than 35 minutes Subjective Date/time seen: 02/09/231044 Interval history: 02/09/231044 patient stated that he is having really bad headache today. Patient does sound very rhonchus and wheezy today. He did state that the Tessalon Perles have been helping his cough. WBCs are elevated still today at 17.8. With the wheezes will continue on the IV steroids. He does still have reproducible chest pain most likely related to the cough. 02/08/23 0845 Patient stated he is doing okay today. He does still feel very short of breath. He also stated that he is still having a lot of mucus buildup and coughing. He stated that his chest pain is mostly related to the cough. He denies any nausea, vomiting, diarrhea or constipation. White blood cell count is slightly elevated at 18.3 most likely related to steroid use. Heart rate does get elevated into the 130s after breathing treatments have returned back to normal level there after. 02/07/23 1045 Currently patient is lying in bed. He denies any current nausea, vomiting, diarrhea constipation. He did state that he is still having some shortness of breath with a cough. He is producing a clear sputum and thick. He stated that his wheezes are slightly better but he does have some pretty pronounced wheezes per auscultation. He is also complaining of chest pain which is most likely from the cough. He also admits taking his medications as they are prescribed. Currently he is stable per labs and vital signs. 02/07/23? 06:06 62-year-old male with a past medical history of chronic tobacco abuse, COPD, hypertension and dyslipidemia who presented to the ER
[2023-02-09] MEDS: HYDROcodone/acetaminophen (*CRX) 5-325 MG TABLET 1 TAB PO ×2 (10:47→20:54)
[2023-02-09] MEDS: LOSARTAN POTASSIUM 50 MG TABLET PO (10:48)
[2023-02-09] MEDS: AZITHROMYCIN 250 MG TABLET PO (10:48)
[2023-02-09] MEDS: hydroCHLOROthiazide 25 MG TABLET PO (10:48)
[2023-02-09] MEDS: guaiFENesin 12 HR 600 MG TABCR 1200 MG PO ×2 (10:48→20:55)
[2023-02-09] MEDS: BENZONATATE 100 MG CAPSULE 200 MG PO ×3 (10:56→18:07)
[2023-02-09] MEDS: ACETAMINOPHEN 500 MG TABLET 1000 MG PO (12:36)
[2023-02-09] MEDS: methylPREDNISolone SOD SUCC 40 MG VIAL IV PUSH (20:54)
[2023-02-09] MEDS: NICOTINE (*PBKC) 21 MG PATCH 1 PATCH TRANSDERM (20:55)
[2023-02-09] MEDS: PRAVASTATIN SODIUM 20 MG TABLET PO (20:57)
[2023-02-10] VITALS (9 sets, daily range): BP systolic 141; BP diastolic 90; PULSE 85–98; RESP 16–18; TEMP 36.4; O2SAT 96
[2023-02-10] MEDS: LEVALBUTEROL NEB 1.25 MG/3 ML INHALATION ×4 (00:31→11:48)
[2023-02-10] MEDS: HYDROcodone/acetaminophen (*CRX) 5-325 MG TABLET 1 TAB PO (06:50)
[2023-02-10 08:18] LABS: Basophils Percent Auto 0.1 % (0.2-1.2); Hemoglobin 12.5 g/dL (14.0-18.0); Immature Granulocyte Absolute 0.16 K/mm3 (0.00-0.031); Immature Granulocyte Percent A 1.1 % (0-0.5); Lymphocytes Absolute Auto 1.08 K/mm3 (0.9-3.2); Lymphocytes Percent Auto 7.4 % (18.3-44.2); Mean Corpuscular HGB Conc 33.8 g/dl (32-36); Mean Corpuscular Hemoglobin 31.9 pg (26-34); Mean Corpuscular Volume 94.4 fl (80-100); Mean Platelet Volume 8.7 fl (7.4-10.4); Monocytes Absolute Auto 0.7 K/mm3 (0.1-0.6); Monocytes Percent Auto 4.7 % (2.6-8.5); Neutrophils Absolute Auto 12.6 K/mm3 (1.3-6.7); Neutrophils Percent Auto 86.7 % (45.5-73.1); Platelet Count Result 273 k/mm3 (150-375); Red Blood Count 3.92 M/mm3 (4.6-6.20); White Blood Count 14.5 K/mm3 (4.5-10.0)
[2023-02-10 08:27] LABS: Alanine Aminotransferase 179 U/L (6-50); Albumin Level 4.2 g/dL (3.5-5.1); Alkaline Phosphatase 46 U/L (38-126); Anion Gap 5 mmol/L (8-16); Aspartate Amino Transferase 125 U/L (17-59); Bilirubin,Total 0.4 mg/dL (0.2-1.3); Blood Urea Nitrogen 15 mg/dL (9-20); Carbon Dioxide 27 mmol/L (22-30); Chloride 103 mmol/L (98-107); Estimated CRCL calculation 78 ml/min; Estimated Glomerular Filt Rate > 60; Glucose 104 mg/dL (65-110); Potassium 3.8 mmol/L (3.4-5.0); Sodium 135 mmol/L (137-145)
[2023-02-10] MEDS: LOSARTAN POTASSIUM 50 MG TABLET PO (08:37)
[2023-02-10] MEDS: guaiFENesin 12 HR 600 MG TABCR 1200 MG PO (08:37)
[2023-02-10] MEDS: AZITHROMYCIN 250 MG TABLET PO (08:38)
[2023-02-10] MEDS: methylPREDNISolone SOD SUCC 40 MG VIAL IV PUSH (08:38)
[2023-02-10] MEDS: hydroCHLOROthiazide 25 MG TABLET PO (08:38)
[2023-02-10] MEDS: BENZONATATE 100 MG CAPSULE 200 MG PO (08:43)
[2023-02-10] MEDS: NICOTINE (*PBKC) 21 MG PATCH 1 PATCH TRANSDERM (08:50)
[2023-02-10] MEDS: FLUTICASONE PROP 110 MCG INHALER 12 GM (*SP) 1 PUFF INHALATION (09:26)
--- NOTE | 2023-02-10 10:00 | PM.DS ---
DS: Admitting Diagnosis Discharge Date 02/10/23 1000 Admitting Diagnosis COPD exacerbation DS: Discharge Diagnosis Discharge Diagnosis (1) COPD with exacerbation: Code(s): J44.1 - Chronic obstructive pulmonary disease with (acute) exacerbation Status: Acute Assessment and Plan: Presented with labored breathing Continues to smoke Chest xray shows no acute cardiopulmonary abnormalities Neb treatments continued Continue home Anoro Ellipta, Flovent Continue methylprednisone, titrate down and change to PO prednisone when able Sputum culture growth of normal galen Smoking cessation education given SPO2 stable supplemental oxygen as indicated guaifenesin 1200mg PO Q12H for sputum control Continue azithromycin PO, start ceftriaxone IV Add Tessalon Perles to help with cough (2) Continuous tobacco abuse: Code(s): Z72.0 - Tobacco use Status: Acute Assessment and Plan: Smoking cessation education given Continue to reinforce Nicotine patch and gum PRN Will prescribe a patch for discharge (3) Hypertension: Code(s): I10 - Essential (primary) hypertension Status: Acute Assessment and Plan: BP is 141/90 Continue home losartan, HCTZ trend BP adjust therapy as indicated (4) Tachycardia: Code(s): R00.0 - Tachycardia, unspecified Status: Acute Assessment and Plan: Heart rate does and in the 130s after breathing treatments however does not sustain Patient remains asymptomatic at this time Continue Trend heart rate No abnormal arrhythmias or any other ectopy noted on tele monitor Stable Resolved (5) Leukocytosis: Code(s): D72.829 - Elevated white blood cell count, unspecified Status: Acute Assessment and Plan: WBCs elevated 18.3, trending down currently at 14.5 Most likely from steroid use Change steroid to 40mg IV Q12H, DC on PO prednisone Continue trend Blood cultures no growth today Sputum culture normal oral galen (6) Headache: Code(s): R51.9 - Headache, unspecified Status: Acute Assessment and Plan: Been continuous for days give a headache cocktail, Toradol, bag of fluids, Imitrex, reglan Continue tylenol and norco for further relief if needed Trend pain Resolving DS: Summary Hospital Course Hospital Course: Patient is 62-year-old male with a past medical history of chronic tobacco abuse, COPD, hypertension and hyperlipidemia who presented to the ED with complaints shortness of breath. Pre brooke stated that he has had shortness of breath the last couple days however it had progressively gotten worse. Upon arrival to the ED chest x-ray was performed and showed no acute abnormality. Patient was started on IV Solu-Medrol and breathing treatments. Patient was able to stay on room air however did have a significant increase and wheezes, sputum production and cough, and shortness of breath. Currently patient feeling better. He was initiated on IV azithromycin along with ceftriaxone. Steroids have been titrated down. Patient did have a significant headache that has lasted through the entire admission and has been treated with Tylenol [place]. Currently his cough is better and was treated with Tessalon Perles and guaifenesin. He also was getting around the clock nebulizer treatments. Currently patient is stable for discharge for labs and vital signs. Patient is okay with discharge at this time. He is aware of what he needs to do with smoking cessation along with other cessation is of other fun activities like drinking and drug use. Patient does verbalize understanding and stated that he is going to get into classes to get those things better controlled. He is requesting nicotine patches as well. His chest pain is still present however is from the cough but states that it
--- NOTE | 2023-02-10 10:00 | P.DS_ITS ---
DS: Admitting Diagnosis Discharge Date 02/10/23 1000 Admitting Diagnosis COPD exacerbation DS: Discharge Diagnosis Discharge Diagnosis (1) COPD with exacerbation: Code(s): J44.1 - Chronic obstructive pulmonary disease with (acute) exacerbation Status: Acute Assessment and Plan: * Presented with labored breathing * Continues to smoke * Chest xray shows no acute cardiopulmonary abnormalities * Neb treatments continued * Continue home Anoro Ellipta, Flovent * Continue methylprednisone, titrate down and change to PO prednisone when able * Sputum culture growth of normal galen * Smoking cessation education given * SPO2 stable * supplemental oxygen as indicated * guaifenesin 1200mg PO Q12H for sputum control * Continue azithromycin PO, start ceftriaxone IV * Add Tessalon Perles to help with cough (2) Continuous tobacco abuse: Code(s): Z72.0 - Tobacco use Status: Acute Assessment and Plan: * Smoking cessation education given * Continue to reinforce * Nicotine patch and gum PRN * Will prescribe a patch for discharge (3) Hypertension: Code(s): I10 - Essential (primary) hypertension Status: Acute Assessment and Plan: * BP is 141/90 * Continue home losartan, HCTZ * trend BP * adjust therapy as indicated (4) Tachycardia: Code(s): R00.0 - Tachycardia, unspecified Status: Acute Assessment and Plan: * Heart rate does and in the 130s after breathing treatments however does not sustain * Patient remains asymptomatic at this time * Continue Trend heart rate * No abnormal arrhythmias or any other ectopy noted on tele monitor * Stable * Resolved (5) Leukocytosis: Code(s): D72.829 - Elevated white blood cell count, unspecified Status: Acute Assessment and Plan: * WBCs elevated 18.3, trending down currently at 14.5 * Most likely from steroid use * Change steroid to 40mg IV Q12H, DC on PO prednisone * Continue trend * Blood cultures no growth today * Sputum culture normal oral galen (6) Headache: Code(s): R51.9 - Headache, unspecified Status: Acute Assessment and Plan: * Been continuous for days * give a headache cocktail, Toradol, bag of fluids, Imitrex, reglan * Continue tylenol and norco for further relief if needed * Trend pain * Resolving DS: Summary Hospital Course Hospital Course: Patient is 62-year-old male with a past medical history of chronic tobacco abuse, COPD, hypertension and hyperlipidemia who presented to the ED with complaints shortness of breath. Pre brooke stated that he has had shortness of breath the last couple days however it had progressively gotten worse. Upon arrival to the ED chest x-ray was performed and showed no acute abnormality. Patient was started on IV Solu-Medrol and breathing treatments. Patient was able to stay on room air however did have a significant increase and wheezes, sputum production and cough, and shortness of breath. Currently patient feeling better. He was initiated on IV azithromycin along with ceftriaxone. Steroids have been titrated down. Patient did have a significant headache that has lasted through the entire admission and has been treated with Tylenol [place]. Currently his cough is colin
[2023-02-10] MEDS: UMECLIDINIUM/VILANTEROL 62.5-25 MCG ELLIPTA 1 PUFF INHALATION (11:48)
--- NOTE | 2023-02-10 11:53 | PCRCNOTE ---
TRACK MECHANIC put in for pt to receive Anoro diskus before discharge. RT at bedside, UPD and diskus given.
== END 2023-02-10 12:40 | disposition home or self-care (01) | DRG 140 ==
LOC: ANHED 00:56 → ANH2MED 03:47
PROVIDERS: Admitting Provider Internal Medicine; Emergency Provider Emergency Medicine; PCP Emergency Medicine; Visit Provider Nurse Practitioner
DX: J44.1 Chronic obstructive pulmonary disease with (acute) exacerbation (principal); R00.0 Tachycardia, unspecified; F17.210 Nicotine dependence, cigarettes, uncomplicated; Z20.822 Contact with and (suspected) exposure to COVID-19; I10 Essential (primary) hypertension; D72.828 Other elevated white blood cell count; T38.0X5A Adverse effect of glucocorticoids and synthetic analogues, initial encounter; E78.5 Hyperlipidemia, unspecified; R51.9 Headache, unspecified
CPT/HCPCS: 36415; 71045; 80053; 83735; 84484; 85025; 86140; 87070; 87205; 87637; 93005; 94640; 96361; 96365; 96374; 96376; 99285; A9270; G0378; G0379; J0696; J2920; J2930; J7030

== ENCOUNTER 2023-05-02 13:08 | Emergency (ER) | payer OTHER, SELFPAY ==
--- NOTE | ~2023-05-02 | XR_ITS ---
Clinical Indication: Shortness of breath PA and lateral views of the chest: Comparison: 02/07/2023 Findings: The lungs are clear, without evidence of focal consolidation or pleural effusion. Cardiome diastinal silhouette is within normal limits. Bones and soft tissues are unremarkable. Impression: Normal chest. Reviewed, dictated and finalized at location . Impression: Normal chest.
--- NOTE | 2023-05-02 13:10 | ECG_ITS ---
Measurements Intervals [place] Rate: 110 P: 76 DE: 159 QRS: 39 QRSD: 77 T: 71 QT: 307 QTc: 417 Interpretive Statements SINUS TACHYCARDIA CANNOT RULE OUT SEPTAL INFARCT, AGE INDETERMINATE BORDERLINE ST-T WAVE ABNORMALITY- INF/LAT LEADS BASELINE ARTIFACT- I, AVR, AVL, V1-V2 ABNORMAL ECG COMPARED TO ECG 02/07/2023 02:52:34 MYOCARDIAL INFARCT FINDING NOW PRESENT Electronically Signed On 05-02-2023 13:43:56 CDT by Michael Fontaine D.O.
[2023-05-02 13:16] VITALS: BP 153/93; PULSE 115; RESP 20; TEMP 36; O2SAT 100
[2023-05-02 13:41] LABS: Basophils Percent Auto 0.4 % (0.2-1.2); Eosinophils Absolute Auto 0.7 K/mm3 (0-0.3); Eosinophils Percent Auto 9.2 % (0-4.4); Hematocrit 40.8 % (42.0-52.0); Hemoglobin 14.2 g/dL (14.0-18.0); Immature Granulocyte Absolute 0.01 K/mm3 (0.00-0.031); Immature Granulocyte Percent A 0.1 % (0-0.5); Lymphocytes Absolute Auto 1.17 K/mm3 (0.9-3.2); Lymphocytes Percent Auto 16.3 % (18.3-44.2); Mean Corpuscular HGB Conc 34.8 g/dl (32-36); Mean Corpuscular Hemoglobin 31.9 pg (26-34); Mean Corpuscular Volume 91.7 fl (80-100); Mean Platelet Volume 8.7 fl (7.4-10.4); Monocytes Absolute Auto 0.5 K/mm3 (0.1-0.6); Monocytes Percent Auto 6.9 % (2.6-8.5); Neutrophils Absolute Auto 4.8 K/mm3 (1.3-6.7); Neutrophils Percent Auto 67.1 % (45.5-73.1); Platelet Count Result 250 k/mm3 (150-375); Red Blood Count 4.45 M/mm3 (4.6-6.20); White Blood Count 7.2 K/mm3 (4.5-10.0)
[2023-05-02 13:51] LABS: Alanine Aminotransferase 96 U/L (6-50); Albumin Level 4.7 g/dL (3.5-5.1); Alkaline Phosphatase 86 U/L (38-126); Anion Gap 9 mmol/L (8-16); Aspartate Amino Transferase 40 U/L (17-59); Bilirubin,Total 0.8 mg/dL (0.2-1.3); Blood Urea Nitrogen 6 mg/dL (9-20); Calcium 9.6 mg/dL (8.4-10.2); Carbon Dioxide 27 mmol/L (22-30); Chloride 100 mmol/L (98-107); Estimated Glomerular Filt Rate > 60; Glucose 110 mg/dL (65-110); Potassium 3.5 mmol/L (3.4-5.0); Sodium 136 mmol/L (137-145)
[2023-05-02] MEDS: methylPREDNISolone SOD SUCC 125 MG VIAL IV PUSH (14:47)
[2023-05-02] MEDS: IPRATROPIUM BR 0.02% INH SOLN 0.5 MG/2.5 ML VIAL 1.5 MG INHALATION (14:53)
[2023-05-02] MEDS: ALBUTEROL SULFATE NEB 2.5 MG/3 ML INH 15 MG INHALATION (14:53)
[2023-05-02 14:54] VITALS: PULSE 97; RESP 12
--- NOTE | 2023-05-02 18:06 | ED.SOB ---
HPI - SOB/Dyspnea General Chief Complaint: Shortness of Breath/Dyspnea Stated Complaint: sob x 2 weeks Time Seen by Provider: 05/02/23 14:29 History of Present Illness HPI Narrative: Patient is a 62-year-old male who presents ER with shortness of breath. Ongoing over the last 2 weeks. Worsening over the last couple of days. He has been having cough as well as wheezing. Recently prescribed Tessalon Perles. No fevers or chills or sweats. No runny nose or sore throat or productive cough. Patient has known history of COPD. He does continue to smoke cigarettes. Cough is productive of clear mucus. No alleviating factors. He has been trying nebulizer treatments at home. Related Data Home Medications Medication Instructions Recorded Confirmed hydrochlorothiazide 12.5 mg capsule 12.5 mg PO DAILY 06/19/20 02/07/23 losartan 50 mg tablet 50 mg PO DAILY 06/19/20 02/07/23 albuterol sulfate 90 mcg/actuation 2 puff inhalation Q4H PRN 11/15/21 02/07/23 aerosol inhaler Shortness Of Breath pravastatin 20 mg tablet 20 mg PO HS 12/30/22 02/07/23 fluticasone propionate 110 1 puff inhalation Q12H 02/07/23 02/07/23 mcg/actuation HFA aerosol inhaler (Flovent HFA) Allergies Allergy/AdvReac Type Severity Reaction Status Date / Time No Known Allergies Allergy Verified 02/07/23 02:59 Review of Systems Review of Systems: All systems reviewed & are unremarkable except as noted in HPI and below Constitutional: Constitutional: Denies chills, Denies fatigue and Denies fever(s) ENT: Denies nasal congestion and Denies sore throat Cardiovascular: Cardiovascular: Denies chest pain, Denies rapid heart rate and Denies radiating jaw, neck or arm pain Respiratory: Respiratory: Reports cough, Reports dyspnea and Reports wheezing Gastrointestinal: Gastrointestinal: Denies abdominal pain, Denies nausea and Denies vomiting [facility] Past Medical History Medical History (Updated 05/02/23 @ 18:15 by Milind Cason MD) Chronic bronchitis Cocaine use COPD (chronic obstructive pulmonary disease) Coughing up blood Essential hypertension HLD (hyperlipidemia) Tobacco abuse Surgical History Surgical History H/O oral surgery H/O shoulder surgery Family History Family History Sibling Lung cancer Sibling Hypertension Mother Diabetes mellitus Father Hypertension Heart disease Social History Social History (Updated 02/07/23 @ 07:36 by Shruthi Gruber DO) Social History: Patient lives with his girlfriend and or he splits his time living with his 2 brothers .He sees Dr. Puga as his PCP and Dr. Barnhart for his pulmonary issues. He states he smoked about 1-1.5 pack per day for roughly 30 years. The patient works for [employer]. Patient does have a history of crack cocaine use. Code status: Full code. Surrogate decision maker: He has multiple surrogate MDM, but would like his sister Fe to be her primary MDM. Smoking packs per day: 1.5 Smoking cigarettes per day: 30.0 Years smoked: 30 Smoking pack-years: 45.00 Smoking status: Current every day smoker Tobacco type: cigarettes Second hand tobacco smoke exposure: Yes Alcohol intake: current Drinks per week: 4 Substance use: current Substance use type: crack/cocaine Other substance usage details: 3 WEEKS WAS LAST USE Last use: 12/29/22 Lack of Transportation: No Lack of Food: Never True Current Housing: I Have Housing Concerned About Future Housing: No Difficulty Paying Gas/Electric Bills: No Difficulty Paying for Meds: No Currently Unemployed: No Education: High School Diploma/GED Difficulty w/ Childcare or Family Care: No Occupation/Education: occupation Gender identity (if verbalized by the patient): Male Sexual Orientation (if Verbalized by the Patient): Straight or Heterosexual Spiritual care concerns: N
== END 2023-05-02 18:53 | disposition home or self-care (01) ==
PROVIDERS: Emergency Medicine; Emergency Provider Emergency Medicine; PCP Emergency Medicine
DX: J44.1 Chronic obstructive pulmonary disease with (acute) exacerbation (principal); I10 Essential (primary) hypertension; E78.5 Hyperlipidemia, unspecified; F17.210 Nicotine dependence, cigarettes, uncomplicated
CPT/HCPCS: 36415; 71046; 80053; 85025; 93005; 94640; 96374; 99285; J2930

== ENCOUNTER 2023-08-31 01:19 | Emergency (ER) | payer OTHER, SELFPAY ==
[2023-08-31 01:18] VITALS: BP 112/99; PULSE 106; RESP 20; TEMP 36.8; O2SAT 99
[2023-08-31 01:32] VITALS: PULSE 108; RESP 19; O2SAT 100
--- NOTE | 2023-08-31 02:04 | ED.GENADULT ---
HPI - General Adult General Chief complaint: Shortness of Breath/Dyspnea Stated complaint: DIFFICULTY IN BREATHING Time Seen by Provider: 08/31/23 01:43 History of Present Illness HPI narrative: Patient 63-year-old gentleman who presents the emergency department with chief complaint of headaches shortness of breath and multiple other complaints. The patient states that he had several drinks this evening of 24 ounce cans the patient states that has been under a lot of stress patient denies suicidal or homicidal ideation patient reports this evening he felt somewhat short of breath and called EMS and was transported from [place] to here. The patient reports that he feels better now and wants to go home Related Data Home Medications Medication Instructions Recorded Confirmed hydrochlorothiazide 12.5 mg capsule 12.5 mg PO DAILY 06/19/20 05/20/23 losartan 50 mg tablet 50 mg PO DAILY 06/19/20 05/20/23 albuterol sulfate 90 mcg/actuation 2 puff inhalation Q4H PRN 11/15/21 05/20/23 aerosol inhaler Shortness Of Breath pravastatin 20 mg tablet 20 mg PO HS 12/30/22 05/20/23 Allergies Allergy/AdvReac Type Severity Reaction Status Date / Time No Known Allergies Allergy Verified 08/31/23 01:32 Review of Systems Review of Systems: A 10 system review of systems was completed on the patient and is negative except for what is stated in the HPI. Nursing and ancillary documentation was reviewed. [facility] Past Medical History Medical History Chronic bronchitis Cocaine use COPD (chronic obstructive pulmonary disease) Coughing up blood Essential hypertension HLD (hyperlipidemia) Tobacco abuse Surgical History Surgical History H/O oral surgery H/O shoulder surgery Family History Family History Sibling Lung cancer Sibling Hypertension Mother Diabetes mellitus Father Hypertension Heart disease Social History Social History Social History: Patient lives with his girlfriend and or he splits his time living with his 2 brothers .He sees Dr. Puga as his PCP and Dr. Barnhart for his pulmonary issues. He states he smoked about 1-1.5 pack per day for roughly 30 years. The patient works for [employer]. Patient does have a history of crack cocaine use. Code status: Full code. Surrogate decision maker: He has multiple surrogate MDM, but would like his sister Fe to be her primary MDM. Smoking packs per day: 1.5 Smoking cigarettes per day: 30.0 Years smoked: 30 Smoking pack-years: 45.00 Smoking status: Current every day smoker Tobacco type: cigarettes Second hand tobacco smoke exposure: Yes Alcohol intake: current Drinks per week: 4 Substance use: current Substance use type: crack/cocaine Other substance usage details: 3 WEEKS WAS LAST USE Last use: 12/29/22 Lack of Transportation: No Lack of Food: Never True Current Housing: I Have Housing Concerned About Future Housing: No Difficulty Paying Gas/Electric Bills: No Difficulty Paying for Meds: No Currently Unemployed: No Education: High School Diploma/GED Difficulty w/ Childcare or Family Care: No Occupation/Education: occupation Gender identity (if verbalized by the patient): Male Sexual Orientation (if Verbalized by the Patient): Straight or Heterosexual Spiritual care concerns: No Exam Narrative: GENERAL: Well-appearing, well-nourished, and in no acute distress. HEAD: Normocephalic, atraumatic. EYES: PERRLA and EOMI. ENT: Nares clear, no rhinorrhea or epistaxis. Mucous membranes moist. NECK: Supple. CHEST: Clear to auscultation. No respiratory distress. HEART: Regular rate and rhythm. No murmur heard. Normal peripheral pulses. ABDOMEN: Soft,
--- NOTE | 2023-08-31 02:15 | PC.NURSE ---
0200 Patient states he wants to leave. ERP notified and went to see patient. Patient demonstrated a steady gait down hallway and evaluated by ERP. Patient agrees to sign out AMA. Patient informed of risks of leaving before treatment and benefits of staying for treatment and evaluation. Patient a/ox4. Patient states he still wants to leave. Patient has sister in waiting room waiting for him. Patient signed AMA papers and ambulated out of the ED with a steady gait. Patient had belongings in hand. Patient had sister here with him to take him home. This RN met sister and also explained risks of leaving and benefits of staying. Patient ambulated out of the ED with his sister by his side and belongings in hand.
== END 2023-08-31 02:19 | disposition left against medical advice (07) ==
PROVIDERS: Emergency Provider Emergency Medicine; PCP Emergency Medicine
DX: R06.02 Shortness of breath (principal); J44.9 Chronic obstructive pulmonary disease, unspecified; I10 Essential (primary) hypertension; E78.5 Hyperlipidemia, unspecified; F17.210 Nicotine dependence, cigarettes, uncomplicated
CPT/HCPCS: 99281

== ENCOUNTER 2024-06-11 10:02 | Outpatient (CLI) | payer OTHER, SELFPAY ==
[2024-06-11 10:57] LABS: Hematocrit 41.7 % (42.0-52.0); Hemoglobin 14.5 g/dL (14.0-18.0); Mean Corpuscular HGB Conc 34.8 g/dl (32-36); Mean Corpuscular Hemoglobin 32.2 pg (26-34); Mean Corpuscular Volume 92.5 fl (80-100); Mean Platelet Volume 9.1 fl (7.4-10.4); Platelet Count Result 275 k/mm3 (150-375); Red Blood Count 4.51 M/mm3 (4.6-6.20); Red Cell Distribution Width 11.9 % (11.5-14.5); White Blood Count 4.6 K/mm3 (4.5-10.0)
[2024-06-11 11:00] LABS: Hemoglobin A1C 5.4 % (<5.7)
[2024-06-11 11:04] LABS: Rheumatoid Factor < 12.0 IU/ML (<12)
[2024-06-11 11:09] LABS: Iron 88 ug/dL (49-181)
[2024-06-11 11:12] LABS: LDL Cholesterol Direct 86 mg/dL
[2024-06-11 11:19] LABS: Alanine Aminotransferase 74 U/L (6-50); Albumin Level 4.7 g/dL (3.5-5.1); Alkaline Phosphatase 67 U/L (38-126); Anion Gap 10 mmol/L (4-12); Aspartate Amino Transferase 52 U/L (17-59); Bilirubin,Total 0.5 mg/dL (0.2-1.3); Blood Urea Nitrogen 16 mg/dL (9-20); Calcium 9.5 mg/dL (8.4-10.2); Carbon Dioxide 29 mmol/L (22-30); Chloride 99 mmol/L (98-107); Cholesterol 218 mg/dL (0-200); Estimated Glomerular Filt Rate > 60; Glucose 49 mg/dL (65-110); Potassium 4.3 mmol/L (3.4-5.0); Sodium 138 mmol/L (137-145); Triglycerides 102 mg/dL (<150)
[2024-06-11 11:27] LABS: Free T4 Free Thyroxine 0.96 ng/mL (0.78-2.19)
[2024-06-11 11:37] LABS: Vitamin D 25 Hydroxy 20.5 ng/mL
[2024-06-11 11:41] LABS: Hepatitis B Surface Antigen Negative (Negative)
[2024-06-11 11:43] LABS: Erythrocyte Sedimentation Rate 13 mm/hr (0-20)
[2024-06-11 11:47] LABS: HAV RESULT Negative (Negative); Hepatitis B Core IgM Result Negative (Negative)
[2024-06-11 11:59] LABS: Hepatitis C Virus Antibody Negative (Negative)
[2024-06-11 15:39] LABS: HDL Direct 115 mg/dL
== END 2024-06-11 10:03 | disposition home or self-care (01) ==
LOC: ANHLAB 10:05
PROVIDERS: PCP Emergency Medicine; Visit Provider Emergency Medicine
DX: Z00.00 Encounter for general adult medical examination without abnormal findings (principal); J44.9 Chronic obstructive pulmonary disease, unspecified; E78.5 Hyperlipidemia, unspecified; D72.829 Elevated white blood cell count, unspecified; R74.01 Elevation of levels of liver transaminase levels; E61.1 Iron deficiency; E55.9 Vitamin D deficiency, unspecified
CPT/HCPCS: 36415; 80053; 80061; 80074; 82306; 83036; 83540; 84439; 84443; 85027; 85652; 86038; 86039; 86430

== ENCOUNTER 2024-07-06 09:34 | Outpatient (CLI) | payer OTHER, SELFPAY ==
--- NOTE | ~2024-07-06 | CT_ITS ---
EXAMINATION:CT lung screening DATE: 07/06/2024 09:50 INDICATION: Personal history of nicotine dependence. TECHNIQUE: Computed tomography (CT) of the chest was performed without intravenous contrast. Automate d exposure control and iterative reconstruction technique were employed. The dose-length product (DLP ) was 100.20 mGy-cm. COMPARISON: None. FINDINGS: There is mild emphysema. No pleural effusion. The heart size is normal. There are coronary artery calcifications. No pericardial effusion. Calcified mediastinal lymph nodes are consistent with old granulomatous disease. There is mild thoracic spondylosis. IMPRESSION: 1. Lung-RADS category 1: Negative. Continue annual screening with noncontrast low-dose chest CT in 12 months. Reviewed, dictated and finalized at location A. IMPRESSION: 1. Lung-RADS category 1: Negative. Continue annual screening with noncontrast l ow-dose chest CT in 12 months.
== END 2024-07-06 09:35 | disposition home or self-care (01) ==
LOC: ANHIMG 09:35
PROVIDERS: PCP Emergency Medicine; Visit Provider Nurse Practitioner Family
DX: Z12.2 Encounter for screening for malignant neoplasm of respiratory organs (principal); Z87.891 Personal history of nicotine dependence
CPT/HCPCS: 71271

== ENCOUNTER 2024-07-18 03:04 | Emergency (ER) | payer OTHER, SELFPAY ==
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
[2024-07-18 04:35] VITALS: BP 111/97; PULSE 96; RESP 15; TEMP 36.1; O2SAT 100
--- NOTE | 2024-07-18 09:05 | ECG_ITS ---
Test Date: 2024-07-18 09:26:10 Measurements Intervals [place] Rate: 81 P: 60 MS: 176 QRS: -6 QRSD: 81 T: 31 QT: 352 QTc: 411 Interpretive Statements SINUS RHYTHM BASELINE ARTIFACT- I, II, III, AVR, AVL, AVF NORMAL ECG No previous ECG available for comparison Electronically Signed On 07-18-2024 15:32:26 CDT by Michael Fontaine D.O.
[2024-07-18 09:14] VITALS: BP 130/90; PULSE 81; RESP 20; O2SAT 98
[2024-07-18 09:38] LABS: Basophils Percent Auto 0.4 % (0.2-1.2); Eosinophils Absolute Auto 0.2 K/mm3 (0-0.3); Hematocrit 41.9 % (42.0-52.0); Hemoglobin 14.3 g/dL (14.0-18.0); Immature Granulocyte Absolute 0.01 K/mm3 (0.00-0.031); Immature Granulocyte Percent A 0.2 % (0-0.5); Lymphocytes Absolute Auto 1.99 K/mm3 (0.9-3.2); Lymphocytes Percent Auto 43.4 % (18.3-44.2); Mean Corpuscular HGB Conc 34.1 g/dl (32-36); Mean Corpuscular Hemoglobin 31.9 pg (26-34); Mean Corpuscular Volume 93.5 fl (80-100); Mean Platelet Volume 8.7 fl (7.4-10.4); Monocytes Absolute Auto 0.3 K/mm3 (0.1-0.6); Monocytes Percent Auto 6.1 % (2.6-8.5); Neutrophils Absolute Auto 2.1 K/mm3 (1.3-6.7); Neutrophils Percent Auto 44.9 % (45.5-73.1); Platelet Count Result 288 k/mm3 (150-375); Red Blood Count 4.48 M/mm3 (4.6-6.20); Red Cell Distribution Width 12.3 % (11.5-14.5); White Blood Count 4.6 K/mm3 (4.5-10.0)
[2024-07-18 09:54] LABS: Alanine Aminotransferase 66 U/L (6-50); Albumin Level 4.9 g/dL (3.5-5.1); Alkaline Phosphatase 65 U/L (38-126); Anion Gap 8 mmol/L (4-12); Aspartate Amino Transferase 54 U/L (17-59); Bilirubin,Total 0.8 mg/dL (0.2-1.3); Blood Urea Nitrogen 10 mg/dL (9-20); Calcium 9.1 mg/dL (8.4-10.2); Carbon Dioxide 30 mmol/L (22-30); Chloride 105 mmol/L (98-107); Estimated CRCL calculation 67 ml/min; Estimated Glomerular Filt Rate > 60; Glucose 89 mg/dL (65-110); Potassium 4.2 mmol/L (3.4-5.0); Sodium 143 mmol/L (137-145)
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
[2024-07-18 10:51] VITALS: BP 110/87; PULSE 74; RESP 16; O2SAT 100
[2024-07-18] MEDS: KETOROLAC 15 MG/ML VIAL (*BKC) IV PUSH (11:16)
[2024-07-18] MEDS: HYDROcodone/acetaminophen (*CRX) 5-325 MG TABLET 1 TAB PO (11:16)
[2024-07-18 11:18] VITALS: BP 125/93; PULSE 90; RESP 20; TEMP 36.9; O2SAT 100
[2024-07-18] MEDS: TETANUS,DIPHTHERIA,AC PERTUSSIS ADULT (0.5 ML) BOOSTRIX IM (11:25)
== END 2024-07-18 11:30 | disposition home or self-care (01) ==
PROVIDERS: Emergency Medicine; Emergency Provider Emergency Medicine; PCP Emergency Medicine
DX: S61.001A Unspecified open wound of right thumb without damage to nail, initial encounter (principal); S20.212A Contusion of left front wall of thorax, initial encounter; S09.90XA Unspecified injury of head, initial encounter; Y04.2XXA Assault by strike against or bumped into by another person, initial encounter; J44.9 Chronic obstructive pulmonary disease, unspecified; I10 Essential (primary) hypertension; E78.5 Hyperlipidemia, unspecified; F17.210 Nicotine dependence, cigarettes, uncomplicated; Z23 Encounter for immunization
CPT/HCPCS: 36415; 70450; 71046; 71100; 72125; 80053; 85025; 90471; 90715; 93005; 96374; 99284; A9270; J1885

== ENCOUNTER 2025-04-18 11:24 | Outpatient (CLI) | payer OTHER, SELFPAY ==
--- OUTSIDE RECORDS SUMMARY | 2025-04-18 11:54 | XMS_ITS | Clinical Summary ---
Author Organization [facility] Address [address] [place] [address] Care Team Providers Care Filling Station Laborer Name Role Phone Jadyn Tucker MD Primary Care Provider [phone] Source Comments [facility],non-owned Affiliates and Associated Physician Practices is amultiple site organization consisting of ambulatory clinics and hospital sitesin [place], [place], [place] and [place]. This disclosure is being madepursuant to the Care Everywhere program and may not contain all information available regarding this patient. Last updated 18.[facility] [employer] Social History Tobacco Use Types Packs/Day Years Used Date Smoking Tobacco: Never Assessed Sex and Gender Information Value Date Recorded Sex Assigned at Not on file Legal Sex Male 5:56 AM [employer] Gender Identity Not on file Sexual Orientation Not on file Plan of Treatment Health Maintenance Due Date Last Done Comments COLOGUARD (AGES 45-75) - COL ON CA SCREENING 1962 COLON MONITORING 1962 COLONOSCOPY - COLON CA SCREENING 1962 CT COLONOGRAPHY - COLON CA SCREENING 1962 Colorectal Cancer Screening 1962 FIT - COLON CA SCREENING 1962 FLEX SIG - COLON CA SCREENING 1962 LIPID TESTING 1962 HIV SCREENING 1977 HEPATITIS C SCREENING 05/06/1980 DTAP/TDAP/TD VACCINES (1 - Tdap) 1981 PNEUMOCOCCAL VACCINE 50+ (1 of 1 - PCV) 2012 ZOSTER VACCINE (1 of 2) 2012 COVID-19 VACCINE (1 - 2023-2 5 season) 2024 DEPRESSION SCREENING 10/20/2024 INFLUENZA VACCINE (Season Ended) 2025 Respiratory Syncytial Virus (RSV) Vaccine Pt: or over 60 yrs (1 - 1-dose 75+ series) 2037 HEPATITIS B VACCINE Aged Out No longe r eligible based on patient's age to complete this topic HIB VACCINE Aged Out No longer eligi ble based on patient's age to complete this topic HPV VACCINE Aged Out No longer eligi ble based on patient's age to complete this topic MENINGOCOCCAL (Group B) VACC INE SHARED DECISION-MAKING Aged Out No longer eligibl e based on patient's age to complete this topic MENINGOCOCCAL GROUPS A/C/Y/W VACCINE Aged Out No longer eligible b ased on patient's age to complete this topic Insurance Care Teams Filling Station Laborer Relationship Specialty Start Date End Date Jadyn Tucker MD [address] [place] [address] PCP - General 02/19/18
--- OUTSIDE RECORDS SUMMARY | 2025-04-18 11:54 | XMS_ITS | Clinical Summary ---
Author Organization [facility] Corrine Thomason Address [address] [place] [address] Care Team Providers Care Programmer Numerical Control Name Role Phone Can Puga MD Primary Care Provider [phone] Allergies No known active allergies Medications brompheniramine /pseudoephed/DM (ROBITUSSIN ALLERGY-COUGH ORAL) Take by mouth. Activ e acetaminophen (TYLENOL) 500 mg tablet Take 1,000 mg by mouth. Active albuterol HFA 90 mcg inhaler albuterol sulfate HFA 90 mcg/actuation aerosol inhaler Active glycopyrrolate- formoteroL (Bevespi Aerosphere) 9-4.8 mcg HFA Aerosol Inhaler Take 2 Puffs by inhalation. Active guaiFENesin (MUCINEX) 600 mg Extended Release Biphasic tablet Take 1,200 mg by mouth. Active Active Problems Problem Noted Date Diagnosed Date Chronic anemia 01/26/2021 Family History Medical History Relation Name Comments Lung Cancer Brother 1 Heart defect Daughter 3 Diabetes Mother Relation Name Status Comments Brother 1 Alive Brother 2 Alive Brother 3 Alive Daughter 1 Alive Daughter 2 Alive Daughter 3 Alive Father Other Mother Sister 1 Alive Sister 2 Alive Son 1 Alive Son 2 Alive Social History Tobacco Use Types Packs/Day Years Used Date Smoking Tobacco: Every Day Cigarettes 0.5 30 Smokeless Tobacco: Never Alcohol Use Standard Drinks/Week Comments Yes 0 (1 standard drink = 0.6 oz pur e alcohol) beer weekly Sex and Gender Information Value Date Recorded Sex Assigned at Not on file Legal Sex Male 1:58 PM CDT Gender Identity Not on file Sexual Orientation Not on file Last Filed Vital Signs Vital Sign Reading Time Taken Comments Blood Pressure 105/80 02/06/2021 8:51 AM CDT Pulse 90 02/06/2021 8:51 AM CDT Temperature 36.9 C (98.4 F) 02/06/2021 8:51 AM CDT Respiratory Rate - - Oxygen Saturation 95% 02/06/2021 8:51 AM CDT Inhaled Oxygen Concentration - - Weight 70.6 kg (155 lb 9.6 oz) 02/06/2021 8:51 A M CDT Height 160 cm (5' 3) 02/06/2021 8:51 AM CDT Body Mass Index 27.56 02/06/2021 8:51 AM CDT Plan of Treatment Health Maintenance Due Date Last Done Comments DTAP/TDAP/TD VACCINES (1 - Tdap) 1981 COLORECTAL SCREENING 2007 Colorectal Cancer Screening 2007 FIT-DNA Q 3 years 2007 FIT/FOBT Q 1 year 2007 Flex Sig/CT Colonography Q 5 years 2007 ZOSTER VACCINE (1 of 2) 2012 INFLUENZA VACCINE (#1) 2024 RSV VACCINE (60+ or ) (1 - 1-dose 75+ series) 2037 Care Teams Programmer Numerical Control Relationship Specialty Start Date End Date Can Puga MD [address] [place] [id number] PCP - General Emergency Medicine 08/04/20
--- OUTSIDE RECORDS SUMMARY | 2025-04-18 11:54 | XMS_ITS | Data Portability ---
Author Organization [place] - [facility] OFFICE Address [address] [place] [address] Care Team Providers Care Professional Driver Name Role Phone NAVEEN DELANEY Primary Care Provider [phone] Assessment No assessment recorded. Plan of Treatment Reminders Order Date Submit Date Provider Last Modified By Organization Details Last Modified Time Details Appointments None record ed. Lab None record ed. Referral None record ed. Procedures None record ed. Surgeries None record ed. Imaging None record ed. Medication Orders None record ed. Patient TargetsNo targets recorded. Patient Instructions Encounter Date Encounter Id Patient Instructions Last Modified By Organization Details Last Modified Time 02/17/2019 [id number] Advised against smoking Exercise advised Low cholesterol diet advised Low sodium diet advised. [email or web address] Not available 02/17/2019 15:13:49 Reason for Referral None Reported. Results Created Date Observation Date Name Description Value Unit Range Abnormal Flag Note LastModifiedBy Organization Detail LastModifiedTime 01/29/20 19 09/23/2018 XR, chest No observ ation record ed. [facility] Not Available 2018 03:31:49 01/29/20 19 09/24/2018 XR, chest No observ ation record ed. [facility] (Lab) [address] [place] [address] [address], [place], [address], 01/28/2019 23:29:17 01/29/20 19 09/23/2018 XR, chest No observ ation record ed. [email or web address] Not Available 01/28 16:41:52 02/19/20 19 02/10/2019 michael barbosa am No observ ation record ed. Not Available 02/19 10:21:50 02/20/20 19 02/10/2019 XR, chest No observ ation record ed. [email or web address] Not Available 02/23 20:04:48 05/26/20 19 04/05/2019 XR, chest No observ ation record ed. [email or web address] Not Available 2018 13:09:27 05/26/20 19 05/06/2019 michael barbosa am No observ ation record ed. [email or web address] Not Available 2018 13:10:26 Result Notes None recorded. Problems Name Problem SNOMED Code Status Onset Date Resolution Date Notes Provider Name and Address Organization Details Recorded Time Cough 17728004 Active 2018 Hala Austin [place], [place] - [facility] 9 14:06:19 Atypical chest pain 530851158 Active 2018 Zaynab sanchez, [place] - [facility] 9 12:43:15 Dyslipidemia 194556140 Active 2018 Zaynab [place]anchez, [place] - [facility] 9 12:43:22 Cigarette smoker 54005933 Active 2018 Zaynab [place]anchez, [place] - [facility] 9 12:43:29 Asthma 926351520 Active 2018 Zaynab [place]anchez, [place] - [facility] 9 12:44:40 Chronic obstructive pulmonary disease 66372441 Active 2018 Zaynab sanchez, [place] - [facility] 9 12:44:46 Problem Notes None recorded. Medical Equipment None Reported. Allergies No known drug allergies Medications Name Sig Start Date Stop Date Status Note LastModified by Organization Details LastModified Time losartan 50 mg tablet active Not Available Not Available Not Available prednisone 10 mg tablet active Not Available Not Available Not Available hydrocodone 5 mg-acetaminophen 325 mg tablet active Not Available Not Availabl e Not Available clindamycin HCl 150 mg capsule 02/17 completed Not Available Not Available Not Available penicillin V potassium 500 mg tablet 02/17 completed Not Available Not Available Not Available acetaminophen 500 mg tablet 02/17 completed Not Available Not Available Not Available amoxicillin 875 mg tablet 02/17 completed Not Available Not Available Not Available prednisone 50 mg tablet active Not Available Not Available Not Available ibuprofen 400 mg tablet 02/17 completed Not Available Not Available Not Available nicotine 21 mg/24 hr daily transdermal patch active Not Available Not Available Not Available hydrochlorothiaz waldo 12.5 mg capsule active Not Available Not Available Not Available pravastatin 20 mg tablet active Not Available Not Available No t Available albuterol sulfate HFA 90 mcg/actuation aerosol inhaler active Not Available Not Availa ble Not Available amoxicillin 875 mg-potassium clavulanate 125 mg tablet active Not Available Not Available No t Available oxycodone 5 mg tablet 02/17 completed Not Available Not Available Not Available cyclobenzaprine 5 mg tablet 02/17 completed Not Available Not Available Not Available chlorhexidine gluconate 0.12 % mouthwash 02/17 completed Not Available Not Available Not Available Vitals Date Recorded Body height Body mass index (BMI) Body weight Heart rate Oxygen saturation Oxygen saturation in Arterial blood by Pulse oximetry Systolic blood pressure Diastolic blood pressure Provider Name and Address Organization Details Last Updated DateTime 9 160.02 cm 32.6 kg/m2 59600 g 89 /min 98 % 98 % 122 mm[Hg] 72 mm[Hg] Gissel [facility] - [facility] 9 14:29:57 Social History Question Answer Notes LastModified by [employer] ion Details LastModified Time Tobacco Smoking Status Former [facility]oker Not Available [facility] 08/22/2020 03:30:42 What Is Your Level Of Caffeine Consumption? None [id number] Information not available 08/22/2020 How Much Tobacco Do You Chew? None [id number] Information not available 08/22/2020 What Type Of Diet Are You Following? REGULAR [id number] Information not available 08/22/2020 Live Alone Or With Others? Alone Information not available 02/17/2019 Marital Status Single Informatio n not available 02/17/2019 What Was The Date Of Your Most Recent Tobacco Screening? 02/17/2019 [id number] Information not available 08/22/2020 How Many Children Do You Have? 5 [id number] Information not available 08/22/2020 How Much Tobacco Do You Smoke? 1 PPW [id number] Information not available 08/22/2020 General Stress Level Low Information not available 02/17/2019 Sex: Unknown Functional Status Question Answer Note LastModified by Organizat ion Details LastModified Time What is your level of alcohol consumption? Occasional [id number] Information not available 08/22/2020 What is your occupation? none [id number] Information not available 08/22/2020 What is your exercise level? None [id number] Information not available 08/22/2020 Mental Status None recorded. Family History Relationship Description Onset Age of this Age Resolved Age Notes LastModified by Organization Details LastModified Time Brother No current problems or disability high blood pressu re and high choles terol [email or web address] Not available 02/17/2019 14:23:56 Sister No current problems or disability high blood pressu re [email or web address] Not available 02/17/2019 14:24:05 Medical History Condition Response Hypertension Y Depression Y COPD Y Asthma Y High Cholesterol Y Past Encounters Encounter ID Performer Location Encounter Start Date Encounter Closed Date Diagnosis/Indication Diagnosis SNOMED-CT Code Diagnosis ICD10 Code Diagnosis Note [id number] MD Li Rodrigues Office [address] [place] [facility] [place] [address] 02/17/2019 14:14:50 02/17/2019 15:15:09 Atypical chest pain 882634044 R07.89 Will get exercise stress echo, to look for any structural heart disease, and to look for any ischemia Dyslipidemia 114884688 E 78.5 Needs to keep LDL less than 70, and HDL more than 40 Will get lipid profile results from PCP Cigarette smoker 1477342 7 F17.210 Advised to quit, patient is trying Health Concerns Section Related Observation LastModified by Organization Detai ls LastModified Time None Recorded Concern Status LastModified by Organization Details LastModified Time None Recorded Advance Directives Directive None Recorded Payers Insurance Date Sequence Insurance Name Policy Number Policy Varela Covered Member ID Varela Member ID Guarantor Name 05/24/2019 1 [facility] - DOS PRIOR TO 2021 (MEDICAID REPLACEMENT - HMO) Denia Baker [id number] Denia Baker Notes Date Note Type Note Provider Name and Address Organization Details Recorded Time 02/17/2019 text/html CC: dyspnea on exertion, chest pain 58 year old male is being seen for cardiac eval due to chest pain, had chest pain last month. No known history of CAD, CO, Arrhythmia, or valvular heart disease He now denied any chest pain, shortness of breath, orthopnea, dizziness, palpitation, or syncope Results from this visit, or from the past:09/23/18: Na 141 ,K 3.6, CL 103 ,CO2 24 , GLU 84,BUN 10 , CR 0.90,09/23/18: HB 13.2, HT 17.197-30-1254 Na 141,K 3.6,Cl 103,Glucose 84,BUN 10,Creati 0.90,Ca 9.6 CBC: wbc 7.0,RBC 4.23,HGB 13.2,HCT 17.9PLT 275 EKG 02/10/19 Sinus tachycardia 09/24/18 CHEST 2 VIEWS: No acute cardiopulmonary abnormality. Matthias Cuevas MD [address] [place], [address], [facility] - [facility] 02/17/2019 15:14:09
[2025-04-18 12:03] LABS: Hematocrit 38.2 % (42.0-52.0); Hemoglobin 12.7 g/dL (14.0-18.0); Mean Corpuscular HGB Conc 33.2 g/dl (32-36); Mean Corpuscular Hemoglobin 30.7 pg (26-34); Mean Corpuscular Volume 92.3 fl (80-100); Mean Platelet Volume 8.8 fl (7.4-10.4); Platelet Count Result 244 k/mm3 (150-375); Red Blood Count 4.14 M/mm3 (4.6-6.20); Red Cell Distribution Width 12.5 % (11.5-14.5); White Blood Count 4.1 K/mm3 (4.5-10.0)
[2025-04-18 12:05] LABS: Add Urine Microscopic? NO; Appearance Urine Clear (Clear); Bilirubin Urine Negative (Negative); Blood Urine Negative (Negative); Color Urine Yellow (Yellow); Glucose Urine UA Negative (Negative); Ketones Urine Negative (Negative); Leukocyte Esterase Ur Negative LEU/UL (Negative); Nitrate Urine Negative (Negative); Protein Urine Negative (Negative); Specific Grav Ur 1.006 (1.001-1.035); Urobilinogen Urine 0.2 mg/dL (<2.0); pH Urine 7.5 (5.0-9.0)
[2025-04-18 12:19] LABS: Alanine Aminotransferase 25 U/L (6-50); Albumin Level 4.4 g/dL (3.5-5.1); Alkaline Phosphatase 63 U/L (38-126); Anion Gap 7 mmol/L (4-12); Aspartate Amino Transferase 28 U/L (17-59); Bilirubin,Total 0.3 mg/dL (0.2-1.3); Blood Urea Nitrogen 8 mg/dL (9-20); Calcium 9.3 mg/dL (8.4-10.2); Carbon Dioxide 24 mmol/L (22-30); Chloride 107 mmol/L (98-107); Cholesterol 212 mg/dL (0-200); Estimated Glomerular Filt Rate > 60; Glucose 98 mg/dL (65-110); HDL Direct 90 mg/dL; Iron 50 ug/dL (49-181); Sodium 138 mmol/L (137-145); Total Protein 7.1 g/dL (6.3-8.2); Triglycerides 86 mg/dL (<150)
[2025-04-18 12:20] LABS: Rheumatoid Factor. < 12.0 IU/ML (<12)
[2025-04-18 12:31] LABS: LDL Cholesterol Direct 85 mg/dL
[2025-04-18 12:34] LABS: Free T4 Free Thyroxine. 0.95 ng/dL (0.78-2.19)
[2025-04-18 12:42] LABS: Erythrocyte Sedimentation Rate 15 mm/hr (0-20)
[2025-04-18 12:50] LABS: Thyroid Stimulating Hormone 0.861 uIU/mL (0.465-4.680)
[2025-04-18 12:59] LABS: Vitamin D 25 Hydroxy 18.1 ng/mL
[2025-04-18 13:04] LABS: Hepatitis B Surface Antigen Negative (Negative)
[2025-04-18 13:07] LABS: HAV RESULT Negative (Negative); Hepatitis B Core IgM Result Negative (Negative)
[2025-04-18 13:19] LABS: Hepatitis C Virus Antibody Negative (Negative)
[2025-04-18 13:49] LABS: Hemoglobin A1C. 5.4 % (<5.7)
== END 2025-04-18 11:25 | disposition home or self-care (01) ==
PROVIDERS: PCP Emergency Medicine; Visit Provider Emergency Medicine
DX: Z12.5 Encounter for screening for malignant neoplasm of prostate (principal); R79.9 Abnormal finding of blood chemistry, unspecified; D64.9 Anemia, unspecified; E78.5 Hyperlipidemia, unspecified; R94.5 Abnormal results of liver function studies; J44.9 Chronic obstructive pulmonary disease, unspecified; M85.80 Other specified disorders of bone density and structure, unspecified site; G43.909 Migraine, unspecified, not intractable, without status migrainosus
CPT/HCPCS: 36415; 80053; 80061; 80074; 81003; 82306; 83036; 83540; 84153; 84439; 84443; 85027; 85652; 86038; 86039; 86430; 87086

== ENCOUNTER 2025-09-26 12:52 | Emergency (ER) | payer OTHER, SELFPAY ==
[2025-09-26 13:00] VITALS: BP 171/100; PULSE 71; RESP 16; TEMP 36.8; O2SAT 100
--- NOTE | 2025-09-26 13:25 | ED_ITS ---
HPI - URI/Sore Throat General Chief Complaint: Upper Respiratory Infection Stated Complaint: cough Source: patient, RN notes reviewed and old records reviewed Mode of arrival: ambulatory Limitations: no limitations History of Present Illness HPI Narrative: 65 year old male who presents to [facility] care with complaints of cough and congestion for the past 2 days with history of COPD. Patient reports that he sees pulmonary for his COPD and uses prescribed inhaler but he is out of his albuterol inhaler. Patient states that he was seeing Dr Hager for Pcp and he missed an appointment and now he won't see him. Information of area physicians and hospital liason line given to patient to call for appointment to get established with new provider. Patient reports no chest pain or any Shortness of breath. Patient continues to use tobacco daily is down to .5ppd he reports. MD elicited complaint: cough and other (congestion) Pertinent past history: COPD Onset (ago): day(s) (2) Severity: mild Description of mucous: clear Able to tolerate fluids by mouth: Yes Treatments prior to arrival: other (uses inhaler) Related Data Home Medications ?Medication ?Instructions ?Recorded ?Confirmed ?Last Taken ?Type hydrochlorothiazide 12.5 mg capsule 12.5 mg PO DAILY 0 06/19/20 09/26/25 Unknown History losartan 50 mg tablet 50 mg PO DAILY 06/19/2006/13 Unknown History albuterol sulfate 90 mcg/actuation 2 puff inhalation Q 4H PRN 11/15/21 09/26/25 Unknown History aerosol inhaler Shortness Of Breath pravastatin 20 mg tablet 20 mg PO HS 12/30/22 5 Unknown History Allergies Allergy/AdvReac Type Severity Reaction Status Date / Time No Known Allergies Allergy Verified 09/26/25 13:09 Review of Systems Review of Systems: CONSTITUTIONAL: Denies malaise, chills, sweats, or fever. EYES: Denies visual changes, redness, or discharge. ENT: Reports rhinorrhea, congestion, sinus pain, no otalgia and no sore throat. CARDIOVASCULAR: Denies chest pain, palpitations, or edema. RESPIRATORY: Reports hacking cough.? Denies dyspnea. GASTROINTESTINAL: Denies abdominal pain, nausea, vomiting, diarrhea SKIN: Denies rash or itching. MUSCULOSKELETAL: Denies myalgia. NEUROLOGIC: Denies headache. All systems reviewed & are unremarkable except as noted in HPI and below PMFSH Past Medical History Medical History (Updated 09/27/25 @ 12:10 by Viviana Magallanes APRN) Cocaine use reports none for 2 years Coughing up blood COPD (chronic obstructive pulmonary disease) HLD (hyperlipidemia) Chronic bronchitis Essential hypertension Tobacco abuse Surgical History Surgical History H/O oral surgery H/O shoulder surgery Family History Family History Sibling Lung cancer Sibling Hypertension Mother Diabetes mellitus Father Hypertension Heart disease Social History Social History (Updated 09/27/25 @ 12:11 by Viviana Magallanes APRN) Social History: Patient lives with his girlfriend and or he splits his time l iving with his 2 brothers .He sees Dr. Puga as his PCP and Dr. Barnhart for his pulmonary issues. He states he smoked about 1-1.5 pack per day for roughly 30 years. The patient works for [employer]. Patient does have a history of crack cocaine use. Code status: Full code. Surrogate decision maker: He has multiple surrogate MDM, but would like his sister Fe to be her primary MDM. Smoking packs per day: 1.5 Smoking cigarettes per day: 30.0 Years smoked: 30 Smoking pack-years: 45.00 Smoking status: Current every day smoker Tobacco type: cigarettes Second hand tobacco smoke exposure: Yes Additional smoking assessment comments: reports that he smokes 1/2 ppd to 3/4 ppd daily Alcohol intake: current Drinks per week: 4 Substance use: former Substance use type: crack/cocaine Other substance usage details: 3 WEEKS WAS LAST USE Last use: 12/29/22, 09/26/2025 reports none for 2 years Lack of Transportation: No Lack of Food: Never True Current Housing: I Have Housing Concerned About Future Housing: No Difficulty Paying Gas/Electric Bills: No Difficulty Paying for Meds: No Currently Unemployed: No Education: High School Diploma/GED Difficulty w/ Childcare or Family Care: No Occupation/Education: occupation Gender identity (if verbalized by the patient): Male Sexual Orientation (if Verbalized by the Patient): Straight or Heterosexual Spiritual care concerns: No Comments At time of signature, agree with nursing past medical, surgical, social and family history. There is no relevant family history pertinent to the presenting complaint Exam Narrative: GENERAL: Well-appearing, well-nourished, and in no acute distress. HEAD: Normocephalic EYES: PERRLA, conjunctivae clear ENT: Nares clear, turbinates edematous and erythematous, clear discharge. Mucous membranes moist. TM pearly malcolm with dull light reflex bilaterally; no tragal tenderness. Oropharynx erythematous without lesions. Tonsils not enlarged and without exudate, no drooling, no hoarseness, no trismus, uvula midline.post nasal drainage NECK: Supple. No lymphadenopathy CHEST: Clear decreased to auscultation, breath sounds equal. No wheezing, rhonchi, rales, or stridor. No respiratory distress, speaks in full sentences.hacking cough SAO2 100% on room air HEART: Regular rate and rhythm. No murmur heard. SKIN: Warm, dry, no rash. NEURO: Alert and oriented x3. PSYCH: Normal mood and affect Course Course Level of Care: Express Care Visit Vital Signs Vital signs: Vital Signs Temperature 36.8 C 09/26/25 13:00 Pulse Rate 71 09/26/25 13:00 Respiratory Rate 16 09/26/25 13:00 Blood Pressure 171/100 H 09/26/25 13:00 Pulse Oximetry 100 09/26/25 13:00 Oxygen Delivery Room Air 09/26/25 13:00 Temperature 36.8 C 09/26/25 13:00 Pulse Rate 71 09/26/25 13:00 Respiratory Rate 16 09/26/25 13:00 Blood Pressure 171/100 H 09/26/25 13:00 Pulse Oximetry 100 09/26/25 13:00 Oxygen Delivery Room Air 09/26/25 13:00 reviewed MDM MDM Narrative Medical decision making narrative: 65 year old male with complaints of hacking cough for the past 2 days with history of COPD and continues to use tobacco daily. Patient reports is out of his Albuterol inhaler has other inhaler that his pulmonary doctor prescribed and has been using as ordered. Patient is not having any chest pain or any shortness of breath. Supportive care measures with steroid, cough tabs and refill of inhaler with information on new primary care options given with hospital liason number given. Anticipatory care and reasons to seek care in ED reviewed with patient. Encouraged to quit tobacco use. Differential Diagnosis Differential Diagnosis: Differential diagnostic considerations for upper respiratory infection include upper respiratory infection, croup, otitis media, sinusitis, viral infection, bronchitis, influenza, pharyngitis, strep, uvulitis.? Critical Care Time Critical Care Time Critical Care Time: No Discharge Plan Discharge Clinical Impression: Respiratory tract congestion with cough Patient Disposition: Home Condition: Stable Instructions: Antibiotic Form, Antitussive/Expectorant (By mouth), COPD (Chronic Obstructive Pulmonary Disease) (ED) Additional Instructions: Increase fluids especially juices and water [id number] cough and cold medicine of your choice for your symptoms Mucinex DM Cough tablets as directed for cough--do not bite, chew or suck on--swallow whole Continue your inhaler/nebulizer as directed Steroids as directed--take with food heat to the face 20-30 minutes 4-6 times a day for pain Salt water gargles, throat lozenges or throat sprays as desired monitor for any fevers If your symptoms persist, change or worsen significantly before you can contact your personal physician then please, without delay, go to the emergency department for further evaluation. Follow-up with PCP in 7-10 days or sooner if needed Follow up with PCP soon in regards to your blood pressure which is elevated above threshold for referral. Blood pressure above 120/80 may indicate pre- hypertension. list of primary providers given to patient QUIT SMOKING Patient Language: [place]i Prescriptions: New albuterol sulfate [Ventolin HFA] 90 mcg/actuation HFA aerosol inhaler 2 puff inhalation QID PRN (Reason: shortness of breath or wheezing) Qty: 8.5 0RF prednisone 20 mg tablet 40 mg PO DAILY 5 Days Qty: 10 0RF Rx Instructions: take with food take as prescribed in the morning or early afternoon benzonatate 200 mg capsule 200 mg PO TID PRN (Reason: cough) Qty: 14 0RF No Action albuterol sulfate 2.5 mg /3 mL (0.083 %) solution for nebulization See Rx Instructions .ROUTE .COMPLEX Qty: 360 5RF Dose Instruction: USE 1 VIAL PER NEBULIZER EVERY 6 HOURS NEEDED FOR SHORTNESS OF BREATH OR WHEEZING Rx Instructions: USE 1 VIAL PER NEBULIZER EVERY 6 HOURS NEEDED FOR SHORTNESS OF BREATH OR WHEEZING. nicotine (polacrilex) 4 mg lozenge 4 mg buccal Q2-4H PRN (Reason: nicotine cravings) Qty: 108 1RF nicotine 21-14-7 mg/24 hr patch, TD daily, sequential See Rx Instructions transdermal .COMPLEX Qty: 56 0RF Rx Instructions: apply 1-21 mg NICOTINE PATCH daily for 28 days; follow with 1-14 mg PATCH daily for 14 days, then 1-7mg PATCH daily for 14 days transdermal albuterol sulfate 90 mcg/actuation HFA aerosol inhaler 2 puff inhalation Q4H PRN (Reason: Shortness Of Breath) Rx Instructions: or wheezing pravastatin 20 mg tablet 20 mg PO HS losartan 50 mg tablet 50 mg PO DAILY hydrochlorothiazide 12.5 mg capsule 12.5 mg PO DAILY Breztri Aerosphere 160-9-4.8 mcg/actuation HFA aerosol inhaler See Rx Instructions .ROUTE .COMPLEX Qty: 10.7 11RF Dose Instruction: INHALE 2 PUFFS BY MOUTH TWICE DAILY. RINSE MOUTH AND SPIT AFTER EACH USE. USE VIA SPACER Rx Instructions: INHALE 2 PUFFS BY MOUTH TWICE DAILY. RINSE MOUTH AND SPIT AFTER EACH USE. USE VIA SPACER Follow-up/Referrals: PHYSICIAN,RADIOLOGY INTERVENTIONAL PHYSICIAN [Primary Care Provider, Internal Medicine] Time of Disposition: 13:46 Quality [place] Coma Scale Eyes: Open Verbal: Oriented and Alert Motor: Follows Commands Dorothy Coma Total Score: 15
== END 2025-09-26 13:56 | disposition home or self-care (01) ==
PROVIDERS: Emergency Provider Registered Nurse
DX: J06.9 Acute upper respiratory infection, unspecified (principal); F17.210 Nicotine dependence, cigarettes, uncomplicated; I10 Essential (primary) hypertension; J44.9 Chronic obstructive pulmonary disease, unspecified; E78.5 Hyperlipidemia, unspecified
CPT/HCPCS: 99213; G0463